=== PATIENT | female | born 1945 | race Caucasian/White ===

== ENCOUNTER 2016-08-30 12:04 | Outpatient (CLI) | payer MEDICARE, BC | END 2016-08-30 12:05 | disposition home or self-care (01) | DX: I10 Essential (primary) hypertension (principal); E78.00 Pure hypercholesterolemia, unspecified; E74.39 Other disorders of intestinal carbohydrate absorption ==

== ENCOUNTER 2017-03-14 09:30 | Outpatient (CLI) | payer MEDICARE, BC ==
[2017-03-14 12:23] LABS: BASOPHILS # (AUTO) 0.1 10^3/uL (0.0-0.1); BASOPHILS % (AUTO) 1.2 %; EOSINOPHILS # (AUTO) 0.4 10^3/uL (0.0-0.7); EOSINOPHILS % (AUTO) 4.5 %; HCT - HEMATOCRIT 37.6 % (37.0-47.0); HGB - HEMOGLOBIN 12.5 g/dL (12.0-16.0); LYMPHOCYTES # (AUTO) 3.1 10^3/uL (1.5-3.5); LYMPHOCYTES % (AUTO) 38.6 %; MEAN CORPUSCULAR HEMOGLOBIN 29.8 pg (27.0-31.0); MEAN CORPUSCULAR HGB CONC 33.2 g/dL (32.0-36.0); MEAN PLATELET VOLUME 10.3 fL (7.9-10.8); MONOCYTES # (AUTO) 0.6 10^3/uL (0.0-1.0); MONOCYTES % (AUTO) 7.2 %; NEUTROPHILS # (AUTO) 3.9 10^3/uL (1.5-6.6); NEUTROPHILS % (AUTO) 48.5 %; RED BLOOD COUNT 4.18 10^6/uL (4.20-5.40); RED CELL DISTRIBUTION WIDTH 13.9 % (12.0-15.0)
[2017-03-14 12:56] LABS: ALBUMIN/GLOBULIN RATIO 1.2 (1.0-2.2); BILIRUBIN,TOTAL 0.5 mg/dL (0.2-1.0); BUN - BLOOD UREA NITROGEN 20 mg/dL (6-20); CALCIUM 9.1 mg/dL (8.5-10.3); CARBON DIOXIDE - CO2 28 mmol/L (21-32); CHLORIDE 108 mmol/L (101-111); CHOL/HDL RATIO 3.6 (<4.4); CHOLESTEROL 154 mg/dL; CREATININE 0.6 mg/dL (0.4-1.0); GFR - MDRD 98 (>89); GLUCOSE 112 mg/dL (70-100); HDL CHOLESTEROL 43 mg/dL; POTASSIUM 4.3 mmol/L (3.5-5.0); SODIUM 141 mmol/L (135-145); TOTAL PROTEIN 7.3 g/dL (6.7-8.2); TRIGLYCERIDES 119 mg/dL; VLDL CHOLESTEROL 24 mg/dL
[2017-03-14 12:58] LABS: HEMOGLOBIN A1C 0.56 g/dL
== END 2017-03-14 09:31 | disposition home or self-care (01) ==
LOC: LAB.WCP 09:30
PROVIDERS: ATTEND Family Medicine
DX: E11.9 Type 2 diabetes mellitus without complications (principal); I10 Essential (primary) hypertension
CPT/HCPCS: 36415; 80053; 80061; 83036; 85025

== ENCOUNTER 2017-10-27 10:30 | Outpatient (CLI) | payer MEDICARE, BC ==
[2017-10-27 12:37] LABS: CALCIUM 9.5 mg/dL (8.5-10.3); CREATININE 0.5 mg/dL (0.4-1.0)
[2017-10-27 12:45] LABS: HB2 TOTAL 12.9 g/dL; HEMOGLOBIN A1C 0.49 g/dL; HEMOGLOBIN A1C % 5.6 % (4.6-6.2)
== END 2017-10-27 10:31 | disposition home or self-care (01) ==
LOC: LAB.WCP 10:30
PROVIDERS: ATTEND Family Medicine
DX: R73.01 Impaired fasting glucose (principal)
CPT/HCPCS: 36415; 80048; 83036

== ENCOUNTER 2018-04-09 10:40 | Outpatient (CLI) | payer MEDICARE, BC ==
[2018-04-09 12:38] LABS: BASOPHILS # (AUTO) 0.2 10^3/uL (0.0-0.1); BASOPHILS % (AUTO) 2.1 %; EOSINOPHILS # (AUTO) 0.2 10^3/uL (0.0-0.7); EOSINOPHILS % (AUTO) 2.8 %; HGB - HEMOGLOBIN 12.5 g/dL (12.0-16.0); LYMPHOCYTES % (AUTO) 23.6 %; MEAN CORPUSCULAR HEMOGLOBIN 29.9 pg (27.0-31.0); MEAN CORPUSCULAR HGB CONC 33.6 g/dL (32.0-36.0); MEAN PLATELET VOLUME 10.2 fL (7.9-10.8); MONOCYTES # (AUTO) 0.5 10^3/uL (0.0-1.0); MONOCYTES % (AUTO) 6.4 %; NEUTROPHILS # (AUTO) 5.4 10^3/uL (1.5-6.6); NEUTROPHILS % (AUTO) 65.1 %; PLT - PLATELET COUNT 251 10^3/uL (130-450); RED BLOOD COUNT 4.18 10^6/uL (4.20-5.40); RED CELL DISTRIBUTION WIDTH 14.1 % (12.0-15.0); WHITE BLOOD COUNT 8.3 x10^3/uL (4.8-10.8)
[2018-04-09 12:47] LABS: HB2 TOTAL 13.2 g/dL; HEMOGLOBIN A1C 0.49 g/dL; HEMOGLOBIN A1C % 5.5 % (4.6-6.2)
[2018-04-09 13:34] LABS: ALBUMIN/GLOBULIN RATIO 1.1 (1.0-2.2); ALKALINE PHOSPHATASE 37 IU/L (42-121); ALT ALANINE AMINOTRANSFERASE 13 IU/L (10-60); AST ASPARTATE AMINOTRANSFERASE 23 IU/L (10-42); BILIRUBIN,TOTAL 0.7 mg/dL (0.2-1.0); BUN - BLOOD UREA NITROGEN 14 mg/dL (6-20); CALCIUM 9.1 mg/dL (8.5-10.3); CARBON DIOXIDE - CO2 31 mmol/L (21-32); CHLORIDE 104 mmol/L (101-111); CHOL/HDL RATIO 3.4 (<4.4); CHOLESTEROL 141 mg/dL; CREATININE 0.4 mg/dL (0.4-1.0); GFR - MDRD 156 (>89); GLUCOSE 115 mg/dL (70-100); HDL CHOLESTEROL 42 mg/dL; LDL CHOLESTEROL,CALCULATED 79 mg/dL; LDL/HDL RATIO 1.9 (<4.4); SODIUM 141 mmol/L (135-145); TOTAL PROTEIN 7.5 g/dL (6.7-8.2); VLDL CHOLESTEROL 20 mg/dL
== END 2018-04-09 10:41 ==
LOC: LAB.WCP 10:40
PROVIDERS: ATTEND Family Medicine
DX: I10 Essential (primary) hypertension (principal); R73.01 Impaired fasting glucose
CPT/HCPCS: 36415; 80053; 80061; 83036; 83721; 84443; 85025

== ENCOUNTER 2019-01-01 08:00 | Outpatient (CLI) | payer MEDICARE, BC ==
[2019-01-01 18:48] LABS: BASOPHILS # (AUTO) 0.1 10^3/uL (0.0-0.1); BASOPHILS % (AUTO) 1.5 %; EOSINOPHILS # (AUTO) 0.3 10^3/uL (0.0-0.7); EOSINOPHILS % (AUTO) 3.9 %; HGB - HEMOGLOBIN 12.3 g/dL (12.0-16.0); LYMPHOCYTES # (AUTO) 2.9 10^3/uL (1.5-3.5); LYMPHOCYTES % (AUTO) 38.8 %; MEAN CORPUSCULAR HEMOGLOBIN 29.7 pg (27.0-31.0); MEAN CORPUSCULAR HGB CONC 32.3 g/dL (32.0-36.0); MEAN CORPUSCULAR VOLUME 91.7 fL (81.0-99.0); MEAN PLATELET VOLUME 9.9 fL (7.9-10.8); MONOCYTES # (AUTO) 0.6 10^3/uL (0.0-1.0); MONOCYTES % (AUTO) 7.7 %; NEUTROPHILS # (AUTO) 3.6 10^3/uL (1.5-6.6); NEUTROPHILS % (AUTO) 48.1 %; PLT - PLATELET COUNT 336 10^3/uL (130-450); RED BLOOD COUNT 4.15 10^6/uL (4.20-5.40); RED CELL DISTRIBUTION WIDTH 14.2 % (12.0-15.0); WHITE BLOOD COUNT 7.5 x10^3/uL (4.8-10.8)
[2019-01-01 19:08] LABS: ALBUMIN 3.9 g/dL (3.2-5.5); ALKALINE PHOSPHATASE 55 IU/L (42-121); ALT ALANINE AMINOTRANSFERASE 10 IU/L (10-60); AST ASPARTATE AMINOTRANSFERASE 22 IU/L (10-42); BILIRUBIN,TOTAL 0.4 mg/dL (0.2-1.0); BUN - BLOOD UREA NITROGEN 19 mg/dL (6-20); CALCIUM 9.4 mg/dL (8.5-10.3); CARBON DIOXIDE - CO2 27 mmol/L (21-32); CHLORIDE 109 mmol/L (101-111); CHOL/HDL RATIO 3.5 (<4.4); CHOLESTEROL 142 mg/dL; CREATININE 0.6 mg/dL (0.4-1.0); GFR - MDRD 97 (>89); GLUCOSE 89 mg/dL (70-100); HDL CHOLESTEROL 41 mg/dL; LDL CHOLESTEROL,CALCULATED 78 mg/dL; LDL/HDL RATIO 1.9 (<4.4); SODIUM 145 mmol/L (135-145); VLDL CHOLESTEROL 23 mg/dL
[2019-01-01 19:16] LABS: HB2 TOTAL 13.2 g/dL; HEMOGLOBIN A1C 0.57 g/dL; HEMOGLOBIN A1C % 6.1 % (4.6-6.2)
== END 2019-01-01 23:59 | disposition home or self-care (01) ==
LOC: LAB.WCP 08:00
PROVIDERS: ATTEND Family Medicine
DX: I10 Essential (primary) hypertension (principal); E74.39 Other disorders of intestinal carbohydrate absorption
CPT/HCPCS: 36415; 80053; 80061; 83036; 83721; 84443; 85025

== ENCOUNTER 2019-07-08 09:00 | Outpatient (CLI) | payer MEDICARE, BC ==
[2019-07-08 18:28] LABS: BASOPHILS # (AUTO) 0.1 10^3/uL (0.0-0.1); EOSINOPHILS # (AUTO) 0.3 10^3/uL (0.0-0.7); EOSINOPHILS % (AUTO) 3.7 %; HGB - HEMOGLOBIN 12.7 g/dL (12.0-16.0); LYMPHOCYTES % (AUTO) 34.6 %; MEAN CORPUSCULAR HEMOGLOBIN 29.3 pg (27.0-31.0); MEAN CORPUSCULAR HGB CONC 30.4 g/dL (32.0-36.0); MEAN CORPUSCULAR VOLUME 96.5 fL (81.0-99.0); MEAN PLATELET VOLUME 12.5 fL (7.9-10.8); MONOCYTES # (AUTO) 0.7 10^3/uL (0.0-1.0); NEUTROPHILS # (AUTO) 4.5 10^3/uL (1.5-6.6); NEUTROPHILS % (AUTO) 52.1 %; PLT - PLATELET COUNT 295 10^3/uL (130-450); RED BLOOD COUNT 4.33 10^6/uL (4.20-5.40); RED CELL DISTRIBUTION WIDTH 13.5 % (12.0-15.0); WHITE BLOOD COUNT 8.6 x10^3/uL (4.8-10.8)
[2019-07-08 19:05] LABS: ALBUMIN 4.2 g/dL (3.2-5.5); ALBUMIN/GLOBULIN RATIO 1.1 (1.0-2.2); BILIRUBIN,TOTAL 0.7 mg/dL (0.2-1.0); CALCIUM 9.5 mg/dL (8.5-10.3); CREATININE 0.5 mg/dL (0.4-1.0)
[2019-07-08 19:23] LABS: HB2 TOTAL 12.8 g/dL; HEMOGLOBIN A1C 0.56 g/dL; HEMOGLOBIN A1C % 6.2 % (4.6-6.2)
== END 2019-07-08 23:59 | disposition home or self-care (01) ==
LOC: LAB.WCP 09:00
PROVIDERS: ATTEND Family Medicine
DX: I10 Essential (primary) hypertension (principal); R73.01 Impaired fasting glucose
CPT/HCPCS: 36415; 80053; 83036; 85025

== ENCOUNTER 2020-05-02 02:13 | Inpatient (IN) | payer MEDICARE, BC ==
--- NOTE | 2020-05-02 02:15 | ED Physician Documentation ---
History of Present Illness - Stated complaint Stated Complaint: LT SIDE WEAKNESS, RT HIP FX, POSS TIA - History obtained from History obtained from: EMS - Additonal information Additional information: the patient is a 74 Y/O F brought in by EMS after she was found down in the shower. Her last known normal was 16:00 05/01/2020. The patient reports that at some time after 16:00 yesterday she had an episode of left sided weakness that has resolved with the exception of some generalized left sided weakness but no facial droop or unilateral weakness. The patient is c/o of some sob and some generalized weakness and shakiness, denies fevers. Review of Systems Ten Systems: 10 systems reviewed and negative Constitutional: reports: Reviewed and negative Eyes: reports: Reviewed and negative Ears: reports: Reviewed and negative Nose: reports: Reviewed and negative Throat: reports: Reviewed and negative Cardiac: reports: Reviewed and negative Respiratory: reports: Reviewed and negative GI: reports: Reviewed and negative : reports: Reviewed and negative Skin: reports: Reviewed and negative Musculoskeletal: reports: Reviewed and negative Neurologic: reports: Other (left sided weakness that resolved.) Psychiatric: reports: Reviewed and negative Endocrine: reports: Reviewed and negative Immunocompromised: reports: Reviewed and negative PD PAST MEDICAL HISTORY - Present Medications Home Medications: Ambulatory Orders Medication Instructions Recorded Confirmed ALPRAZolam [Alprazolam] 0.5 mg PO DAILY PRN 05/02/20 05/02/20 Amlodipine Besylate 10 mg PO DAILY 05/02/20 05/02/20 Fenofibrate Nanocrystallized 145 mg PO DAILY 05/02/20 05/02/20 [Fenofibrate] Losartan Potassium 100 mg PO DAILY 05/02/20 05/02/20 Nadolol [Corgard] 40 mg PO DAILY 05/02/20 05/02/20 - Allergies Allergies/Adverse Reactions: Allergies Allergy/AdvReac Type Severity Reaction Status Date / Time Penicillins Allergy Rash Verified 05/02/20 02:57 PD ED PE NORMAL - Vitals Vital signs reviewed: Yes - General General: Alert and oriented X 3, No acute distress, Well developed/nourished - HEENT HEENT: Atraumatic, PERRL, Moist mucous membranes, Pharynx benign - Neck Neck: Supple, no meningeal sign, No bony TTP - Cardiac Cardiac: RRR, No murmur, Strong equal pulses - Respiratory Respiratory: No respiratory distress, Clear bilaterally - Abdomen Abdomen: Normal bowel sounds, Soft, Non tender, Non distended - Female Female : Deferred - Rectal Rectal: Deferred - Back Back: No CVA TTP, No spinal TTP - Derm Derm: Normal color, Warm and dry, No rash - Extremities Extremities: No deformity, No tenderness to palpate, Normal ROM s pain, No edema, No calf tenderness / cord - Neuro Neuro: Alert and oriented X 3, 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, No motor deficit, No sensory deficit, Normal speech, Other (no facial droop, no unilateral weakness, no pronator drift, normal finger to nose, normal rapid alternating movement, normal heal to dickey.) - Psych Psych: Normal mood, Normal affect Results - Vitals Vitals: Vital Signs - 24 hr 05/02/20 05/02/20 05/02/20 02:15 02:20 03:35 Temperature 36.5 C Heart Rate 60 58 L 58 L Respiratory 18 19 24 Rate Blood Pressure 158/78 H 143/61 H 127/70 O2 Saturation 100 98 97 05/02/20 05/02/20 04:25 04:55 Temperature 36.8 C Heart Rate 53 L 52 L Respiratory 23 25 H Rate Blood Pressure 132/49 H 132/49 H O2 Saturation 53 L 94 Oxygen O2 Source Room air - EKG (time done) 02:43 Rate: Other (no stemi) - Labs Labs: Laboratory Tests 05/02/20 05/02/20 05/02/20 02:40 02:40 02:40 WBC 11.0 H RBC 4.26 Hgb 12.6 Hct 40.2 MCV 94.4 MCH 29.6 MCHC 31.3 L RDW 13.2 Plt Count 296 MPV 11.5 H Neut # (Auto) 6.8 H Lymph # (Auto) 3.0 [place] # (Auto) 0.7 Eos # (Auto) 0.3 Baso # (Auto) 0.1 Absolute Nucleated RBC 0.00 Nucleated RBC % 0.0 PT 12.2 INR 1.1 APTT 26.3 Sodium 140 Potassium 3.9 Chloride 106 Carbon Dioxide 24 Anion Gap 10.0 BUN 33 H Creatinine 0.9 Estimated GFR (MDRD) 61 L Glucose 142 H Calcium 9.2 Magnesium 1.8 Total Bilirubin 0.7 AST 21 ALT 11 Alkaline Phosphatase 69 Total Creatine Kinase 76 Troponin I High Sens B-Natriuretic Peptide Total Protein 7.8 Albumin 4.2 Globulin 3.6 Albumin/Globulin Ratio 1.2 Triglycerides Cholesterol LDL Cholesterol, Calc VLDL Cholesterol HDL Cholesterol LDL/HDL Ratio Cholesterol/HDL Ratio Lipase 33 Urine Color Urine Clarity Urine pH Ur Specific [place] Urine Protein Urine Glucose (UA) Urine Ketones Urine Occult Blood Urine Nitrite Urine Bilirubin Urine Urobilinogen Ur Leukocyte Esterase Urine RBC Urine WBC Ur Squamous Epith Cells Urine Bacteria Ur Microscopic Review Urine Culture Comments Urine Opiates Screen Ur Oxycodone Screen Urine Methadone Screen Ur Propoxyphene Screen Ur Barbiturates Screen Ur Tricyclics Screen Ur Phencyclidine Scrn Ur Amphetamine Screen U Methamphetamines Scrn U Benzodiazepines Scrn Urine Cocaine Screen U Cannabinoids Screen Ethyl Alcohol < 5.0 05/02/20 05/02/20 05/02/20 02:40 02:40 03:55 WBC RBC Hgb Hct MCV MCH MCHC RDW Plt Count MPV Neut # (Auto) Lymph # (Auto) [place] # (Auto) Eos # (Auto) Baso # (Auto) Absolute Nucleated RBC Nucleated RBC % PT INR APTT Sodium Potassium Chloride Carbon Dioxide Anion Gap BUN Creatinine Estimated GFR (MDRD) Glucose Calcium Magnesium Total Bilirubin AST ALT Alkaline Phosphatase Total Creatine Kinase Troponin I High Sens 19.0 H* B-Natriuretic Peptide 149 H Total Protein Albumin Globulin Albumin/Globulin Ratio Triglycerides Cholesterol LDL Cholesterol, Calc VLDL Cholesterol HDL Cholesterol LDL/HDL Ratio Cholesterol/HDL Ratio Lipase Urine Color YELLOW Urine Clarity CLEAR Urine pH 7.0 Ur Specific [place] 1.015 Urine Protein TRACE Urine Glucose (UA) NEGATIVE Urine Ketones NEGATIVE Urine Occult Blood TRACE-INTA Urine Nitrite NEGATIVE Urine Bilirubin NEGATIVE Urine Urobilinogen 0.2 (NORMAL) Ur Leukocyte Esterase SMALL H Urine RBC 0-5 Urine WBC 4-5 Ur Squamous Epith Cells FEW Squamous Urine Bacteria Rare Ur Microscopic Review INDICATED Urine Culture Comments INDICATED Urine Opiates Screen NEGATIVE Ur Oxycodone Screen NEGATIVE Urine Methadone Screen NEGATIVE Ur Propoxyphene Screen NEGATIVE Ur Barbiturates Screen NEGATIVE Ur Tricyclics Screen NEGATIVE Ur Phencyclidine Scrn NEGATIVE Ur Amphetamine Screen NEGATIVE U Methamphetamines Scrn NEGATIVE U Benzodiazepines Scrn POSITIVE H Urine Cocaine Screen NEGATIVE U Cannabinoids Screen NEGATIVE Ethyl Alcohol 05/02/20 05/02/20 05/02/20 05:13 05:13 05:13 WBC 11.3 H RBC 4.26 Hgb 12.6 Hct 40.5 MCV 95.1 MCH 29.6 MCHC 31.1 L RDW 13.1 Plt Count 283 MPV 11.4 H Neut # (Auto) 7.4 H Lymph # (Auto) 2.7 [place] # (Auto) 0.7 Eos # (Auto) 0.2 Baso # (Auto) 0.1 Absolute Nucleated RBC 0.00 Nucleated RBC % 0.0 PT INR APTT Sodium 141 Potassium 3.9 Chloride 108 Carbon Dioxide 26 Anion Gap 7.0 BUN 30 H Creatinine 0.7 Estimated GFR (MDRD) 81 L Glucose 149 H Calcium 9.2 Magnesium Total Bilirubin AST ALT Alkaline Phosphatase Total Creatine Kinase Troponin I High Sens B-Natriuretic Peptide Total Protein Albumin Globulin Albumin/Globulin Ratio Triglycerides 94 Cholesterol 151 LDL Cholesterol, Calc 88 VLDL Cholesterol 19 HDL Cholesterol 44 L LDL/HDL Ratio 2.0 Cholesterol/HDL Ratio 3.4 Lipase Urine Color Urine Clarity Urine pH Ur Specific [place] Urine Protein Urine Glucose (UA) Urine Ketones Urine Occult Blood Urine Nitrite Urine Bilirubin Urine Urobilinogen Ur Leukocyte Esterase Urine RBC Urine WBC Ur Squamous Epith Cells Urine Bacteria Ur Microscopic Review Urine Culture Comments Urine Opiates Screen Ur Oxycodone Screen Urine Methadone Screen Ur Propoxyphene Screen Ur Barbiturates Screen Ur Tricyclics Screen Ur Phencyclidine Scrn Ur Amphetamine Screen U Methamphetamines Scrn U Benzodiazepines Scrn Urine Cocaine Screen U Cannabinoids Screen Ethyl Alcohol PD MEDICAL DECISION MAKING - ED course Complexity details: reviewed results, re-evaluated patient, considered differential, d/w patient, d/w family, d/w oracle distribution consultant (dr. quiros. will admit patient. ) ED course: 74-year-old female brought in by ambulance after she was found down in the shower and the patient denies any complaints currently EMS reports her blood sugars was was normal. Last known normal was 1600 yesterday. Patient apparently mentioned EMS that she had left-sided weakness that is completely resolved. Denies taking blood thinners. Chest x-ray shows borderline cardiomegaly with central vascular congestion and interstitial prominence that is suggestive of mild CHF or fluid overload 1 view anterior posterior of the pelvis shows no pelvic fracture or misalignment preliminary radiology interpretation of head and neck CT angiogram shows mild atherosclerotic changes of carotid bulbs and cavernous ICAs no vessel occlusion or significant stenosis. I spoke with the hospitalist, dr. quiros who graciously agreed to accept this patient. patient and family updated and agreeable to plan. - Consults Consults: Discussed case with (dr. quiros, hospitalist. will admit patient. ) Departure - Departure Disposition: 66 [facility] DC/Xfer Clinical Impression: TIA (transient ischemic attack) Condition: Stable Discharge Date/Time: 05/02/20 06:43
[2020-05-02] MEDS ORDERED: IOVERSOL 320 100 ML VIAL IVP ONE ×2 (02:43→03:37)
[2020-05-02 02:49] LABS: BASOPHILS # (AUTO) 0.1 10^3/uL (0.0-0.1); BASOPHILS % (AUTO) 0.9 %; EOSINOPHILS # (AUTO) 0.3 10^3/uL (0.0-0.7); EOSINOPHILS % (AUTO) 2.9 %; HGB - HEMOGLOBIN 12.6 g/dL (12.0-16.0); LYMPHOCYTES % (AUTO) 27.3 %; MEAN CORPUSCULAR HEMOGLOBIN 29.6 pg (27.0-31.0); MEAN CORPUSCULAR HGB CONC 31.3 g/dL (32.0-36.0); MEAN CORPUSCULAR VOLUME 94.4 fL (81.0-99.0); MEAN PLATELET VOLUME 11.5 fL (7.9-10.8); MONOCYTES # (AUTO) 0.7 10^3/uL (0.0-1.0); NEUTROPHILS # (AUTO) 6.8 10^3/uL (1.5-6.6); NEUTROPHILS % (AUTO) 62.1 %; PLT - PLATELET COUNT 296 10^3/uL (130-450); RED BLOOD COUNT 4.26 10^6/uL (4.20-5.40); RED CELL DISTRIBUTION WIDTH 13.2 % (12.0-15.0)
[2020-05-02 02:56] LABS: INR 1.1 (0.8-1.2); PT - PROTHROMBIN TIME 12.2 secs (9.9-12.6)
[2020-05-02 03:03] LABS: PARTIAL THROMBOPLASTIN TIME 26.3 secs (24.9-33.3)
[2020-05-02 03:04] LABS: ALBUMIN 4.2 g/dL (3.2-5.5); ALBUMIN/GLOBULIN RATIO 1.2 (1.0-2.2); ALKALINE PHOSPHATASE 69 IU/L (42-121); ALT ALANINE AMINOTRANSFERASE 11 IU/L (10-60); AST ASPARTATE AMINOTRANSFERASE 21 IU/L (10-42); BILIRUBIN,TOTAL 0.7 mg/dL (0.2-1.0); BUN - BLOOD UREA NITROGEN 33 mg/dL (6-20); CALCIUM 9.2 mg/dL (8.5-10.3); CARBON DIOXIDE - CO2 24 mmol/L (21-32); CHLORIDE 106 mmol/L (101-111); CK- CREATINE KINASE 76 IU/L (22-269); CREATININE 0.9 mg/dL (0.4-1.0); GLUCOSE 142 mg/dL (70-100); LIPASE 33 U/L (22-51); MAGNESIUM 1.8 mg/dL (1.7-2.8); SODIUM 140 mmol/L (135-145); TOTAL PROTEIN 7.8 g/dL (6.7-8.2)
[2020-05-02 04:03] LABS: MUDS CUTOFF CONCENTRATIONS CUTOFF CONC BELOW:
[2020-05-02 04:08] LABS: BILIRUBIN,URINE NEGATIVE (NEGATIVE); GLUCOSE, URINE (UA) NEGATIVE (NEGATIVE); KETONES,URINE (UA) NEGATIVE (NEGATIVE); LEUKOCYTE ESTERASE, URINE SMALL (NEGATIVE); NITRITE,URINE NEGATIVE (NEGATIVE); OCCULT BLOOD,URINE TRACE-INTA (NEGATIVE); PROTEIN,URINE TRACE mg/dL (NEGATIVE); UROBILINOGEN,URINE 0.2 (NORMAL) E.U./dL (NORMAL)
[2020-05-02 04:17] LABS: CLARITY,URINE CLEAR (CLEAR)
[2020-05-02 04:18] LABS: AMPHETAMINE SCREEN,URINE NEGATIVE (NEGATIVE); BACTERIA,URINE Rare /HPF (None Seen); BENZODIAZEPINES SCREEN, URINE POSITIVE (NEGATIVE); COCAINE SCREEN URINE NEGATIVE (NEGATIVE); METHADONE SCREEN, URINE NEGATIVE (NEGATIVE); METHAMPHETAMINES SCREEN, URINE NEGATIVE (NEGATIVE); OPIATE SCREEN, URINE NEGATIVE (NEGATIVE); OXYCODONE SCREEN, URINE NEGATIVE (NEGATIVE); PROPOXYPHENE SCREEN, URINE NEGATIVE (NEGATIVE); RBC,URINE 0-5 /HPF (0-5); SQUAMOUS EPITHELIAL CELL,UR FEW Squamous (<= Few); TRICYCLIC ANTIDEPRESSANT,URINE NEGATIVE (NEGATIVE)
[2020-05-02] MEDS ORDERED: LORazepam 2 MG/ML VIAL IVP STA (04:18)
[2020-05-02] MEDS ORDERED: SODIUM CHLORIDE FLUSH 0.9% 10 ML SYRINGE IVP PRN (04:42)
[2020-05-02] MEDS ORDERED: ACETAMINOPHEN 325 MG TABLET PO PRN (04:42)
[2020-05-02] MEDS ORDERED: ONDANSETRON 4 MG/2 ML VIAL IVP PRN (04:42)
--- NOTE | 2020-05-02 04:51 | HISTORY & PHYSICAL EXAMINATION ---
Chief Complaint - Chief Complaint Chief Complaint: Left-sided weakness, slurred speech History of Present Illness - Admitted From Admitted From:: [facility] ED - History Obtained From Records Reviewed: Yes History obtained from: Patient's son Exam Limitations: Language barrier. Patient is mainly Luxembourger speaking. - History of Present Illness HPI Comment/Other: Patient is a 74-year-old femalWho presented to the ED with left-sided weakness and slurred speech.Her symptoms started around 1:30 AM when she was trying to take a bath. She also became dizzy. She attempted to walk around this time and fell several times in the bathroom. She called her son who found her on the living room floor.He then called 911 and EMS brought her to the ED. By the time of arrival to the ED the patient's slurred speech had resolved. However her weakness persist.Her son last talked to her around 4 PM during which time she appeared normal. At baseline the patient is independent of activities of daily living. She walks without the help of a walking aid. 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 Prior to this incident she had not had any complaints of chest pain, dyspnea, abdominal pain, nausea, vomiting, fever or chills. Her medical history significant for hypertension, COPD, hyperlipidemia, anxiety and diabetes mellitus which is diet controlled only. As a result of her presentation and persistence of her symptoms she is being admitted for further work-up. History - Past Medical History Cardiovascular: reports: Hypertension, High cholesterol Respiratory: reports: COPD Endocrine/Autoimmune: reports: Type 2 diabetes Psych: reports: Anxiety MRSA Hx?: No - Past Surgical History HEENT: reports: Tonsil/Adenoidectomy - Family & Social History Family History Comment/Other: Her sister is diabetic. Her son has high blood pressure. Social History Notes: The patient lives alone but has son checks on her regularly. She quit smoking about 5 years ago. She has a history of smoking for over 30+ years. She rarely consumes alcohol and does not use any recreational substances. - POLST Patient has POLST: No POLST Status: Full Code Meds/Allgy - Home Medications Home Medications: Ambulatory Orders Medication Instructions Recorded Confirmed ALPRAZolam [Alprazolam] 0.5 mg PO DAILY PRN 05/02/20 05/02/20 Amlodipine Besylate 10 mg PO DAILY 05/02/20 05/02/20 Fenofibrate Nanocrystallized 145 mg PO DAILY 05/02/20 05/02/20 [Fenofibrate] Losartan Potassium 100 mg PO DAILY 05/02/20 05/02/20 Nadolol [Corgard] 40 mg PO DAILY 05/02/20 05/02/20 - Allergies Allergies/Adverse Reactions: Allergies Allergy/AdvReac Type Severity Reaction Status Date / Time Penicillins Allergy Rash Verified 05/02/20 02:57 Review of Systems - Constitutional Constitutional: reports: Chills, Weakness. denies: Fatigue, Fever - Eyes Eyes: denies: Pain, Vision loss, Dipolpia - Ears, Nose & Throat Ears, Nose & Throat: denies: Ear pain - Cardiovascular Cariovascular: reports: Lightheadedness. denies: Irregular heart rate, Palpitations, Chest pain, Edema - Respiratory Respiratory: denies: Cough, Sputum production, Wheezing, Snoring, SOB at rest, SOB with exertion - Gastrointestinal Gastrointestinal: denies: Abdominal pain, Abdominal distention, Nausea, Vomiting - Genitourinary Genitourinary: denies: Dysuria, Frequency, Urgency, Hematuria - Musculoskeletal Musculoskeletal: denies: Muscle pain, Back pain, Muscle aches - Integumentary Integumentary: denies: Rash, Pruritis, Lesions - Neurological Neurological: reports: Focal weakness (Left-sided weakness), Dizziness, Slurred speech. denies: Headache - Psychiatric Psychiatric: reports: Anxiety. denies: Depression - Endocrine Endocrine: denies: Polyuria, Polydypsia - Hematologic/Lymphatic Hematologic/Lymphatic: denies: Anemia, Bruising Prior Level of Functionality: Patient is normally independent of activities of daily living. Exam - Vital Signs Vital Signs: Vital Signs x48h Temp Pulse Resp BP Pulse Ox 05/02/20 04:25 36.8 C 53 L 23 132/49 H 53 L 05/02/20 03:35 58 L 24 127/70 97 05/02/20 02:20 58 L 19 143/61 H 98 05/02/20 02:15 36.5 C 60 18 158/78 H 100 - Physical Exam General Appearance: positive: No acute distress, Alert Eyes Bilateral: positive: PERRL, EOMI ENT: positive: No signs of dehydration Neck: positive: No JVD, Trachea midline Respiratory: positive: Chest non-tender, No respiratory distress, Breath sounds nml. negative: Wheezes, Rales, Rhonchi Cardiovascular: positive: Regular rate & rhythm, No murmur Abdomen: positive: Non-tender, No organomegaly, Nml bowel sounds, No distention. negative: Guarding, Rebound Back: positive: Nml inspection Skin: positive: Color nml, No rash, Warm, Dry Extremities: positive: Non-tender, Nml appearance, No pedal edema Neurologic/Psychiatric: positive: Oriented x3, Mood/affect nml, Weakness (Left- sided weakness). negative: Motor nml Conclusion/Plan - Problem List (1) CVA (cerebral vascular accident) Conclusion/Plan: CT of the brain without contrast was unremarkable. MRI of the brain without contrast ordered. 2D echo ordered. Lipid panel, hemoglobin A1c pending. Neurochecks every shift. Swallow evaluation ordered. Physical therapy and Occupational Therapy ordered. Patient given a full dose of aspirin. Qualifiers: Laterality of affected vessel: left (2) Hypertension Conclusion/Plan: Currently normotensive. We resume losartan, amlodipine and nadolol when appropriate to do so and once verified. (3) Hyperlipidemia Conclusion/Plan: Patient is on fenofibrate. Lipid panel pending. Patient with likely be discharged on a statin. (4) Hx of diabetes mellitus Conclusion/Plan: Patient's diabetes was mainly diet controlled. Patient was never on medications. Hemoglobin A1c pending. - Lab Results Fish Bones: 05/02/20 02:40 05/02/20 02:40 Core Measures - Anticipated LOS I expect patient to be DC'd or transferred within 96 hours.: Yes - DVT/VTE - Prophylaxis VTE/DVT Device ordered at admit?: Yes
[2020-05-02] MEDS ORDERED: ASPIRIN 325 MG TABLET PO STA (05:18)
[2020-05-02 05:23] LABS: BASOPHILS # (AUTO) 0.1 10^3/uL (0.0-0.1); BASOPHILS % (AUTO) 1.1 %; EOSINOPHILS # (AUTO) 0.2 10^3/uL (0.0-0.7); EOSINOPHILS % (AUTO) 2.1 %; HGB - HEMOGLOBIN 12.6 g/dL (12.0-16.0); LYMPHOCYTES # (AUTO) 2.7 10^3/uL (1.5-3.5); LYMPHOCYTES % (AUTO) 23.9 %; MEAN CORPUSCULAR HEMOGLOBIN 29.6 pg (27.0-31.0); MEAN CORPUSCULAR HGB CONC 31.1 g/dL (32.0-36.0); MEAN CORPUSCULAR VOLUME 95.1 fL (81.0-99.0); MEAN PLATELET VOLUME 11.4 fL (7.9-10.8); MONOCYTES # (AUTO) 0.7 10^3/uL (0.0-1.0); MONOCYTES % (AUTO) 6.4 %; NEUTROPHILS # (AUTO) 7.4 10^3/uL (1.5-6.6); NEUTROPHILS % (AUTO) 65.8 %; PLT - PLATELET COUNT 283 10^3/uL (130-450); RED BLOOD COUNT 4.26 10^6/uL (4.20-5.40); RED CELL DISTRIBUTION WIDTH 13.1 % (12.0-15.0); WHITE BLOOD COUNT 11.3 x10^3/uL (4.8-10.8)
[2020-05-02 05:31] LABS: CALCIUM 9.2 mg/dL (8.5-10.3); CREATININE 0.7 mg/dL (0.4-1.0)
[2020-05-02 05:47] LABS: CHOL/HDL RATIO 3.4 (<4.4); CHOLESTEROL 151 mg/dL; HDL CHOLESTEROL 44 mg/dL; LDL CHOLESTEROL,CALCULATED 88 mg/dL; VLDL CHOLESTEROL 19 mg/dL
[2020-05-02] MEDS: SODIUM CHLORIDE 0.9% 1,000 ML IV SCH ×3 (06:03→23:38)
--- NOTE | 2020-05-02 07:11 | CT Report ---
PROCEDURE: ANGIO HEAD W/WO INDICATIONS: L sided facial droop CONTRAST: IV CONTRAST: Optiray 320 ml: 80 PO CONTRAST: *NO PO CONTRAST TECHNIQUE: Precontrast 4.5 mm thick angled axial sections acquired from the foramen magnum to the vertex. Afte r the administration of intravenous contrast, 1 mm thick sections acquired through the [place] of Will is. Postcontrast 4.5 mm thick sections then re-acquired from the foramen magnum to the vertex. 3-di mensional fpkimwt-oelgnecoc-nonljhiqst (MIP) and/or volume rendering reformats were acquired of the c entral intracranial vasculature. For radiation dose reduction, the following was used: automated ex posure control, adjustment of mA and/or kV according to patient size. COMPARISON: None FINDINGS: Image quality: Excellent. Anterior circulation: Intracranial internal carotid arteries are normal in flow. Atherosclerotic chrissy cification noted in the cavernous segments of the internal carotid arteries bilaterally which causes mild narrowing of the vessels. The flow within the paired anterior cerebral arteries is normal and sy mmetric. The flow within the middle cerebral arteries is normal and symmetric. The anterior communi cating artery is seen. No aneurysms are seen. Posterior circulation: Visualized portions of the vertebral arteries demonstrate normal caliber, and join to form a normal appearing basilar artery. Flow within the posterior cerebral arteries is norm al and symmetric. No aneurysms are seen. Dural sinuses demonstrate normal postcontrast enhancement. CSF spaces: Ventricles are normal in size and shape. Basal cisterns are patent. No extra-axial flu id collections. Brain: No midline shift. Chronic left frontal and right occipital infarcts. No intracranial bleeds o r masses. Whitten-white matter interface appears intact. Skull and face: Calvarium and facial bones appear intact, without suspicious lesions. Sinuses: Visualized sinuses and mastoids are clear. IMPRESSION: 1. No acute intracranial disease process. 2. No large vessel occlusion, hemodynamically significant vascular enosis, vascular dissection or ane urysm. Reviewed by: Marcela Spicer MD, PhD on 05/02/2020 7:10 AM PDT Approved by: Marcela Spicer MD, PhD on 05/02/2020 7:10 AM PDT Station ID: [id number]
--- NOTE | 2020-05-02 07:36 | CT Report ---
PROCEDURE: ANGIO NECK W INDICATIONS: L sided facial droop, L neck pain CONTRAST: IV CONTRAST: Optiray 320 ml: 80 PO CONTRAST: *NO PO CONTRAST TECHNIQUE: After the administration of intravenous contrast, 1.5 mm axial sections acquired from the aortic arch to the [place] of [place]. Coronal 3-D maximum intensity projection (MIP) and/or volume rendering ref ormats were then performed. For radiation dose reduction, the following was used: automated exposur e control, adjustment of mA and/or kV according to patient size. COMPARISON: None. FINDINGS: Image quality: Excellent. Carotid system: The great vessels demonstrate a conventional anatomy as they arise from the aortic a rch. The origins of the common carotid arteries appear patent. The common carotid arteries demonstr ate normal calibers and courses. Atherosclerotic plaque noted in the origins of the internal carotid arteries bilaterally which causes less than 50% stenosis of the vessels. Posterior circulation: The origins of the vertebral arteries appear patent. Patient is left vertebra l artery dominant. The more superior portions of the vertebral arteries demonstrate normal course and caliber. They join to form a normal appearing basilar artery. Soft tissues: Visualized neck soft tissues demonstrate no suspicious abnormalities. The thyroid gla nd is normal in size. Bones: No suspicious bony lesions. Spine degenerative disc disease and facet arthropathy are noted. Visualized cervical spine appears normally aligned. IMPRESSION: No large vessel occlusion, hemodynamically significant vascular stenosis, vascular dissection or aneu rysm. The estimate of stenosis included in the report of the imaging study was calculated using the NASCET method Reviewed by: Marcela Spicer MD, PhD on 05/02/2020 7:35 AM PDT Approved by: Marcela Spicer MD, PhD on 05/02/2020 7:35 AM PDT Station ID: [id number]
--- NOTE | 2020-05-02 07:59 | XRAY Report ---
PROCEDURE: Chest 1 View X-Ray INDICATIONS: weakness TECHNIQUE: One view of the chest was acquired. COMPARISON: 04/09/2018 FINDINGS: Surgical changes and devices: None. Lungs and pleura: No pleural effusions or pneumothorax. Mild cephalization of the pulmonary vasculat ure and interstitial prominence. Mediastinum: Mediastinal contours appear normal. Heart is borderline enlarged Bones and chest wall: No suspicious bony lesions. Overlying soft tissues appear unremarkable. IMPRESSION: Borderline enlargement of the heart with mild cephalization the pulmonary vasculature and interstitia l prominence concerning for CHF/fluid overload. Reviewed by: Marcela Spicer MD, PhD on 05/02/2020 7:58 AM PDT Approved by: Marcela Spicer MD, PhD on 05/02/2020 7:58 AM PDT Station ID: [id number]
--- NOTE | 2020-05-02 08:00 | XRAY Report ---
PROCEDURE: Pelvis 1 View INDICATIONS: fall TECHNIQUE: 1 view(s) of the pelvis acquired. COMPARISON: None. FINDINGS: Bones: No fractures or dislocations. No suspicious bony lesions. Mild bilateral hip osteoarthritis. Soft tissues: Visualized bowel gas pattern is normal. No suspicious soft tissue calcifications. IMPRESSION: No fracture. No osseous lesion. If there is continued clinical concern for pathology, then repeat alan in film radiographs (7-10 days) or advanced imaging (CT, MR, bone scan) should be considered for furt her evaluation. Reviewed by: Marcela pSicer MD, PhD on 05/02/2020 7:58 AM PDT Approved by: Marcela Spicer MD, PhD on 05/02/2020 7:58 AM PDT Station ID: [id number]
[2020-05-02 10:47] LABS: HEMOGLOBIN A1c% 5.9 % (4.27-6.07)
[2020-05-02] MEDS: PANTOPRAZOLE 40 MG VIAL IVP SCH (10:57)
[2020-05-02] MEDS: SODIUM CHLORIDE FLUSH 0.9% 10 ML SYRINGE IVP SCH ×3 (10:57→23:31)
--- NOTE | 2020-05-02 13:01 | MRI Report ---
PROCEDURE: Brain W/O INDICATIONS: CVA vs TIA work up TECHNIQUE: Noncontrast axial T1 spin echo, axial T2 fast spin echo, sagittal and axial FLAIR, coronal T2 fast sp in echo, axial gradient echo, axial diffusion and ADC through the brain. COMPARISON: None. FINDINGS: Image quality: Excellent. CSF Spaces: Basal cisterns are patent. No extra-axial fluid collections. Ventricles are normal in size and shape. Brain: There is restricted diffusion in the high right frontal lobe involving the superior frontal gy vaishnavi in the OMAR territory. Findings of encephalomalacia and gliosis related to remote ischemia in the left frontal lobe and right posterior temporal lobe. Left cerebral volume loss with passive expansion of the ventricles and extra-axial spaces. Aoyf-kp-prorbcvb chronic microvascular ischemic changes. H emosiderin deposition in the right posterior temporal lobe infarct likely reflecting an element of pr ior hemorrhagic transformation. Skull and face: Calvarium has normal marrow signal. Orbits appear normal. Sinuses: Sinuses and mastoids are clear. IMPRESSION: Acute ischemia in the high right frontal lobe OMAR territory. 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 Mild to moderate chronic microvascular ischemic changes an mild global cerebral volume loss. Reviewed by: Desmond Jacobs MD on 05/02/2020 12:59 PM PDT Approved by: Desmond Jacobs MD on 05/02/2020 12:59 PM PDT Station ID: [id number]
--- NOTE | 2020-05-02 14:09 | PHARMACY PROGRESS NOTE ---
- Best Possible Medication History Admit Date and Time: 05/02/20 0517 Processed by: Pharmacy Medication History completed: Yes Patient Interview: Completed Secondary Source(s): Physician records, Pharmacy records, Insurance records (PATIENT INTERVIEWED BY LEAD BURNER APPRENTICE. PATIENT ABLE TO CONFIRM HOME MEDICATIONS. PATIENT STATES SHE TAKES LASIX 20MG AND KCL 10MEQ SOMETIMES, HOWEVER THESES MEDICATIONS ARE NOT REFLECTED IN THE INSURANCE OR PROVIDER RECORDS, POSSIBLY OLD RXs AND PATIENT HAS LEFT OVER.) As the person ultimately responsible for medication therapy, providers are able to order a medication from an existing home medication list in [facility] via the "Reconcile Routine" prior to Confirmation of that medication by production support analyst. Such practice is discouraged except when the physician, in their clinical judgment, deems that a medical need exists for a medication without regard to previous use.
[2020-05-02] MEDS: ALPRAZolam 0.25 MG TABLET PO SCH (21:50)
[2020-05-02] MEDS: ATORVASTATIN 40 MG TABLET PO SCH (21:50)
[2020-05-03 01:29] LABS: BILIRUBIN,URINE NEGATIVE (NEGATIVE); GLUCOSE, URINE (UA) NEGATIVE (NEGATIVE); KETONES,URINE (UA) NEGATIVE (NEGATIVE); LEUKOCYTE ESTERASE, URINE NEGATIVE (NEGATIVE); NITRITE,URINE NEGATIVE (NEGATIVE); OCCULT BLOOD,URINE NEGATIVE (NEGATIVE); PROTEIN,URINE NEGATIVE (NEGATIVE); UROBILINOGEN,URINE 0.2 (NORMAL) E.U./dL (NORMAL)
[2020-05-03 01:33] LABS: CLARITY,URINE CLEAR (CLEAR)
[2020-05-03 05:15] LABS: BASOPHILS # (AUTO) 0.1 10^3/uL (0.0-0.1); BASOPHILS % (AUTO) 0.6 %; EOSINOPHILS # (AUTO) 0.2 10^3/uL (0.0-0.7); EOSINOPHILS % (AUTO) 2.7 %; HGB - HEMOGLOBIN 11.7 g/dL (12.0-16.0); LYMPHOCYTES # (AUTO) 2.8 10^3/uL (1.5-3.5); LYMPHOCYTES % (AUTO) 33.9 %; MEAN CORPUSCULAR HEMOGLOBIN 28.9 pg (27.0-31.0); MEAN CORPUSCULAR HGB CONC 30.8 g/dL (32.0-36.0); MEAN CORPUSCULAR VOLUME 93.8 fL (81.0-99.0); MEAN PLATELET VOLUME 11.8 fL (7.9-10.8); MONOCYTES # (AUTO) 0.5 10^3/uL (0.0-1.0); MONOCYTES % (AUTO) 6.1 %; NEUTROPHILS # (AUTO) 4.7 10^3/uL (1.5-6.6); NEUTROPHILS % (AUTO) 56.2 %; PLT - PLATELET COUNT 272 10^3/uL (130-450); RED BLOOD COUNT 4.05 10^6/uL (4.20-5.40); RED CELL DISTRIBUTION WIDTH 13.3 % (12.0-15.0); WHITE BLOOD COUNT 8.4 x10^3/uL (4.8-10.8)
[2020-05-03 05:24] LABS: CALCIUM 8.6 mg/dL (8.5-10.3); CREATININE 0.5 mg/dL (0.4-1.0)
[2020-05-03] MEDS: PANTOPRAZOLE 40 MG VIAL IVP SCH (05:35)
[2020-05-03] MEDS: FENOFIBRATE 48 MG TABLET PO SCH (09:08)
[2020-05-03] MEDS: LOSARTAN 50 MG TABLET PO SCH (09:08)
[2020-05-03] MEDS: amLODIPine 5 MG TABLET PO SCH (09:08)
[2020-05-03] MEDS: POTASSIUM CHLORIDE 10 MEQ CAPSULE PO SCH (09:08)
[2020-05-03] MEDS: ASPIRIN EC 81 MG TABLET PO SCH (09:08)
[2020-05-03] MEDS: SODIUM CHLORIDE FLUSH 0.9% 10 ML SYRINGE IVP SCH ×2 (09:09→16:40)
[2020-05-03] MEDS: nadoloL 20 MG TABLET PO SCH (09:09)
[2020-05-03] MEDS: FUROSEMIDE 20 MG TABLET PO SCH (09:11)
[2020-05-03] MEDS: ALBUTEROL NEB 2.5 MG/3 ML INH PRN ×2 (09:18→20:00)
[2020-05-03] MEDS ORDERED: ONDANSETRON ODT 4 MG TABLET TL PRN (11:39)
--- NOTE | 2020-05-03 11:46 | PROVIDER PROGRESS NOTE ---
Subjective - Prog Note Date Prog Note Date: 05/03/20 - Subjective Subjective: She reports feeling improved today. She has increased strength in her left upper and lower extremities. She reported some dysuria yesterday but today she reports her symptoms have improved. She still has poor balance when ambulating but she is able to work with physical therapy. Current Medications - Current Medications Current Medications: Active Medications Acetaminophen (Tylenol) 650 mg PO Q4HR PRN PRN Reason: Pain 1 to 4 Albuterol () 2.5 mg INH RTQ4H PRN PRN Reason: Wheezing Last Admin: 05/03/20 09:18 Dose: 2.5 mg Documented by: Alprazolam (Xanax) 0.5 mg PO QPM [facility] Last Admin: 05/02/20 21:50 Dose: 0.5 mg Documented by: Amlodipine Besylate (Norvasc) 10 mg PO DAILY [facility] Last Admin: 05/03/20 09:08 Dose: 10 mg Documented by: Aspirin (Ecotrin) 81 mg PO DAILY [facility] Last Admin: 05/03/20 09:08 Dose: 81 mg Documented by: Atorvastatin Calcium (Lipitor) 40 mg PO QPM [facility] Last Admin: 05/02/20 21:50 Dose: Not Given Documented by: Famotidine (Pepcid) 20 mg PO DAILY [facility] Fenofibrate (Tricor) 144 mg PO DAILY [facility] Last Admin: 05/03/20 09:08 Dose: 144 mg Documented by: Furosemide (Lasix) 20 mg PO DAILY [facility] Last Admin: 05/03/20 09:11 Dose: 20 mg Documented by: Losartan Potassium (Cozaar) 100 mg PO DAILY [facility] Last Admin: 05/03/20 09:08 Dose: 100 mg Documented by: Nadolol (Corgard) 40 mg PO DAILY [facility] Last Admin: 05/03/20 09:09 Dose: 40 mg Documented by: Ondansetron HCl (Zofran Odt) 4 mg TL Q6HR PRN PRN Reason: Nausea / Vomiting Potassium Chloride (Micro-K) 10 meq PO DAILYWM [facility] Last Admin: 05/03/20 09:08 Dose: 10 meq Documented by: Sodium Chloride (Normal Saline Flush 0.9%) 10 ml IVP PRN PRN PRN Reason: NEEDED PER PROVIDER ORDERS Sodium Chloride (Normal Saline Flush 0.9%) 10 ml IVP 0100,0900,1700 [facility] Last Admin: 05/03/20 09:09 Dose: 10 ml Documented by: ALPRAZolam [Alprazolam] 0.5 mg PO QPM PRN 05/02/20 Albuterol Sulfate [Albuterol Sulfate Hfa] 1 inh PO Q4HR PRN 05/02/20 Amlodipine Besylate 10 mg PO DAILY 05/02/20 Fenofibrate Nanocrystallized [Fenofibrate] 145 mg PO DAILY 05/02/20 Furosemide [Lasix] 20 mg PO DAILY 05/02/20 Losartan Potassium 100 mg PO DAILY 05/02/20 Nadolol [Corgard] 40 mg PO DAILY 05/02/20 Potassium Chloride 10 meq PO DAILY 05/02/20 Objective - Vital Signs/Intake & Output Reviewed Vital Signs: Yes Vital Signs: Vital Signs x48h Temp Pulse Pulse Resp BP Pulse Ox 05/03/20 09:19 66 18 05/03/20 08:00 36.4 C L 66 22 146/53 H 94 05/03/20 05:00 36.3 C L 68 20 158/61 H 94 Intake & Output: Intake & Output 04/30/20 05/01/20 05/02/20 05/03/20 23:59 23:59 23:59 23:59 Intake Total 2071.667 1120 Output Total 200 1400 Balance 1871.667 -280 - Objective General Appearance: positive: No acute distress, Alert Eyes Bilateral: positive: Normal inspection, Conjunctivae nml ENT: positive: ENT inspection nml Neck: positive: Nml inspection Respiratory: positive: No respiratory distress. negative: Wheezes, Rales Cardiovascular: positive: Regular rate & rhythm, No murmur. negative: Tachycardia, Bradycardia, Systolic murmur Abdomen: positive: Non-tender, No distention. negative: Tenderness, Guarding, Rebound Skin: positive: No rash, Warm, Dry Extremities: positive: Full ROM, No pedal edema Neurologic/Psychiatric: positive: Oriented x3, Other (She has had a 5 motor strength in her right upper and lower extremity. Her motor strength is also grossly intact in her left extremities which is about 5 out of 5. She does have a poor gait when ambulating and she does lean towards her left side. Sensation is grossly intact). negative: Disoriented to person, Disoriented to place, Disoriented to time, Facial droop, Slurred/abnml speech - Lab Results Fish Bones: 05/03/20 04:30 05/03/20 04:30 Other Labs: Lab Results x24hrs 05/03/20 05/03/20 05/02/20 Range/Units 04:30 04:30 23:50 WBC 8.4 (4.8-10.8) x10^3/uL RBC 4.05 L (4.20-5.40) 10^6/uL Hgb 11.7 L (12.0-16.0) g/dL Hct 38.0 (37.0-47.0) % MCV 93.8 (81.0-99.0) fL MCH 28.9 (27.0-31.0) pg MCHC 30.8 L (32.0-36.0) g/dL RDW 13.3 (12.0-15.0) % Plt Count 272 (130-450) 10^3/uL MPV 11.8 H (7.9-10.8) fL Neut # (Auto) 4.7 (1.5-6.6) 10^3/uL Lymph # (Auto) 2.8 (1.5-3.5) 10^3/uL [place] # (Auto) 0.5 (0.0-1.0) 10^3/uL Eos # (Auto) 0.2 (0.0-0.7) 10^3/uL Baso # (Auto) 0.1 (0.0-0.1) 10^3/uL Absolute Nucleated RBC 0.00 x10^3/uL Nucleated RBC % 0.0 /100WBC Sodium 141 (135-145) mmol/L Potassium 3.5 (3.5-5.0) mmol/L Chloride 109 (101-111) mmol/L Carbon Dioxide 24 (21-32) mmol/L Anion Gap 8.0 (6-13) BUN 16 (6-20) mg/dL Creatinine 0.5 (0.4-1.0) mg/dL Estimated GFR (MDRD) 120 (>89) Glucose 123 H (70-100) mg/dL Calcium 8.6 (8.5-10.3) mg/dL Troponin I High Sens (2.3-14.8) ng/L Urine Color YELLOW Urine Clarity CLEAR (CLEAR) Urine pH 6.0 (5.0-7.5) PH Ur Specific [place] 1.015 (1.002-1.030) Urine Protein NEGATIVE (NEGATIVE) mg/dL Urine Glucose (UA) NEGATIVE (NEGATIVE) mg/dL Urine Ketones NEGATIVE (NEGATIVE) mg/dL Urine Occult Blood NEGATIVE (NEGATIVE) Urine Nitrite NEGATIVE (NEGATIVE) Urine Bilirubin NEGATIVE (NEGATIVE) Urine Urobilinogen 0.2 (NORMAL) (NORMAL) E.U./dL Ur Leukocyte Esterase NEGATIVE (NEGATIVE) Ur Microscopic Review NOT INDICATED Urine Culture Comments NOT INDICATED 05/02/20 Range/Units 14:49 WBC (4.8-10.8) x10^3/uL RBC (4.20-5.40) 10^6/uL Hgb (12.0-16.0) g/dL Hct (37.0-47.0) % MCV (81.0-99.0) fL MCH (27.0-31.0) pg MCHC (32.0-36.0) g/dL RDW (12.0-15.0) % Plt Count (130-450) 10^3/uL MPV (7.9-10.8) fL Neut # (Auto) (1.5-6.6) 10^3/uL Lymph # (Auto) (1.5-3.5) 10^3/uL [place] # (Auto) (0.0-1.0) 10^3/uL Eos # (Auto) (0.0-0.7) 10^3/uL Baso # (Auto) (0.0-0.1) 10^3/uL Absolute Nucleated RBC x10^3/uL Nucleated RBC % /100WBC Sodium (135-145) mmol/L Potassium (3.5-5.0) mmol/L Chloride (101-111) mmol/L Carbon Dioxide (21-32) mmol/L Anion Gap (6-13) BUN (6-20) mg/dL Creatinine (0.4-1.0) mg/dL Estimated GFR (MDRD) (>89) Glucose (70-100) mg/dL Calcium (8.5-10.3) mg/dL Troponin I High Sens 11.4 (2.3-14.8) ng/L Urine Color Urine Clarity (CLEAR) Urine pH (5.0-7.5) PH Ur Specific [place] (1.002-1.030) Urine Protein (NEGATIVE) mg/dL Urine Glucose (UA) (NEGATIVE) mg/dL Urine Ketones (NEGATIVE) mg/dL Urine Occult Blood (NEGATIVE) Urine Nitrite (NEGATIVE) Urine Bilirubin (NEGATIVE) Urine Urobilinogen (NORMAL) E.U./dL Ur Leukocyte Esterase (NEGATIVE) Ur Microscopic Review Urine Culture Comments ABX Reporting Has patient been on IV antibiotics over the past 48 hours?: No Assessment/Plan - Problem List (1) CVA (cerebral vascular accident) Impression: MRI confirmed an area of acute ischemia in the right frontal lobe. Her left eye deficits have improved but she still difficulty with balance and gait. Echocardiogram was unremarkable except for grade III diastolic dysfunction and she has been in sinus rhythm with occasional PACs on telemetry. We will continue her on aspirin 81 mg daily and Lipitor 40 mg in the evening. Continue with PT and OT. They are recommending inpatient rehab. We will work with social work on disposition. Qualifiers: Laterality of affected vessel: right (2) Hypertension Impression: We have allowed for 24 hours of permissive hypertension. Her home antihypertensives have been resumed. (3) Hx of diabetes mellitus Impression: A1c is 5.9%. We discussed this and she will continue to monitor her diet. (4) Hyperlipidemia Impression: Will. We will continue fenofibrate. Discussed with patient importance of Lipitor and she is agreeable to it and so we will continue her on Lipitor 40 mg evening.
[2020-05-03] MEDS: polyethylene glycoL 3350 17 GM PACKET PO SCH ×2 (21:09→21:23)
[2020-05-03] MEDS: ALPRAZolam 0.25 MG TABLET PO SCH (21:09)
[2020-05-03] MEDS: ATORVASTATIN 40 MG TABLET PO SCH (21:09)
[2020-05-04] MEDS: SODIUM CHLORIDE FLUSH 0.9% 10 ML SYRINGE IVP SCH ×3 (00:07→15:46)
[2020-05-04 05:25] LABS: BASOPHILS # (AUTO) 0.1 10^3/uL (0.0-0.1); BASOPHILS % (AUTO) 0.9 %; EOSINOPHILS # (AUTO) 0.3 10^3/uL (0.0-0.7); EOSINOPHILS % (AUTO) 3.4 %; HGB - HEMOGLOBIN 12.5 g/dL (12.0-16.0); LYMPHOCYTES # (AUTO) 3.2 10^3/uL (1.5-3.5); LYMPHOCYTES % (AUTO) 36.3 %; MEAN CORPUSCULAR HEMOGLOBIN 30.4 pg (27.0-31.0); MEAN CORPUSCULAR HGB CONC 32.3 g/dL (32.0-36.0); MEAN CORPUSCULAR VOLUME 94.2 fL (81.0-99.0); MEAN PLATELET VOLUME 11.9 fL (7.9-10.8); MONOCYTES # (AUTO) 0.8 10^3/uL (0.0-1.0); MONOCYTES % (AUTO) 8.5 %; NEUTROPHILS # (AUTO) 4.4 10^3/uL (1.5-6.6); NEUTROPHILS % (AUTO) 50.3 %; PLT - PLATELET COUNT 260 10^3/uL (130-450); RED BLOOD COUNT 4.11 10^6/uL (4.20-5.40); RED CELL DISTRIBUTION WIDTH 13.2 % (12.0-15.0); WHITE BLOOD COUNT 8.8 x10^3/uL (4.8-10.8)
[2020-05-04 05:33] LABS: CALCIUM 9.2 mg/dL (8.5-10.3); CREATININE 0.5 mg/dL (0.4-1.0)
[2020-05-04] MEDS: nadoloL 20 MG TABLET PO SCH (11:26)
[2020-05-04] MEDS: ASPIRIN EC 81 MG TABLET PO SCH (11:27)
[2020-05-04] MEDS: FAMOTIDINE 20 MG TABLET PO SCH (11:27)
[2020-05-04] MEDS: POTASSIUM CHLORIDE 10 MEQ CAPSULE PO SCH (11:28)
[2020-05-04] MEDS: LOSARTAN 50 MG TABLET PO SCH (11:28)
[2020-05-04] MEDS: amLODIPine 5 MG TABLET PO SCH (11:28)
[2020-05-04] MEDS: FUROSEMIDE 20 MG TABLET PO SCH (11:28)
[2020-05-04] MEDS: FENOFIBRATE 48 MG TABLET PO SCH (11:29)
[2020-05-04] MEDS: polyethylene glycoL 3350 17 GM PACKET PO SCH (11:29)
--- NOTE | 2020-05-04 16:51 | PROVIDER PROGRESS NOTE ---
Assessment/Plan - Problem List (1) CVA (cerebral vascular accident) Qualifiers: Laterality of affected vessel: right Assessment/Plan: Patient has improved for weakness. Physical therapist and occupational therapist also reported patient improvement. It was recommended to in patient rehab for stroke. Consult with social work for in-pt placement. Continue aspirin and Lipitor, Continue work with PT and OT (2) Hypertension Impression: Stable. home antihypertensives will be resumed. (3) Hx of diabetes mellitus Impression: A1c is 5.9%. We discussed this and she will continue to monitor her diet. (4) Hyperlipidemia Impression: We will continue fenofibrate. continue her on Lipitor 40 mg evening - Current Meds Current Meds: Current Medications Generic Name Dose Route Start Last Admin Trade Name Freq PRN Reason Stop Dose Admin Acetaminophen 650 mg 05/02/20 04:42 05/04/20 11:22 Tylenol PO 650 mg Q4HR PRN Administration Pain 1 to 4 Albuterol 2.5 mg 05/03/20 07:15 05/03/20 20:00 INH 2.5 mg RTQ4H PRN Administration Wheezing Alprazolam 0.5 mg 05/02/20 21:23 05/03/20 21:09 Xanax PO 0.5 mg QPM [facility]ARGIE Administration Amlodipine Besylate 10 mg 05/03/20 09:00 05/04/20 11:28 Norvasc PO 10 mg DAILY [facility] Administration Aspirin 81 mg 05/03/20 09:00 05/04/20 11:27 Ecotrin PO 81 mg DAILY [facility] Administration Atorvastatin Calcium 40 mg 05/02/20 21:00 05/03/20 21:09 Lipitor PO 40 mg QPM [facility] Administration Famotidine 20 mg 05/04/20 09:00 05/04/20 11:27 Pepcid PO 20 mg DAILY [facility] Administration Fenofibrate 144 mg 05/03/20 09:00 05/04/20 11:29 Tricor PO 144 mg DAILY [facility] Administration Furosemide 20 mg 05/03/20 09:00 05/04/20 11:28 Lasix PO 20 mg DAILY [facility] Administration Losartan Potassium 100 mg 05/03/20 09:00 05/04/20 11:28 Cozaar PO 100 mg DAILY [facility] Administration Nadolol 40 mg 05/03/20 09:00 05/04/20 11:26 Corgard PO 40 mg DAILY [facility] Administration Polyethylene Glycol 17 gm 05/03/20 21:00 05/04/20 11:29 Miralax PO 17 gm DAILY [facility] Administration Potassium Chloride 10 meq 05/03/20 08:00 05/04/20 11:28 Micro-K PO 10 meq DAILYWM [facility]IE Administration Sodium Chloride 10 ml 05/02/20 09:00 05/04/20 15:46 Normal Saline Flush 0.9% IVP 10 ml 0100,0900,1700 MARGIE Administration - Lab Result Fish Bone Diagrams: 05/04/20 04:50 05/04/20 04:50 Subjective - Subjective Patient Reports: Feeling Better Objective Vital Signs: Vital Signs - 24 hr 05/03/20 05/03/20 05/04/20 20:00 20:18 00:31 Temperature 36.5 C 36.3 C L Heart Rate 60 Heart Rate [ 58 L 59 L Brachial] Respiratory 18 18 18 Rate Blood Pressure 140/69 H 131/57 H [Right Brachial artery] O2 Saturation 98 95 05/04/20 05/04/20 05/04/20 04:47 08:00 13:00 Temperature 36.6 C 36.7 C 36.6 C Heart Rate Heart Rate [ 66 63 52 L Brachial] Respiratory 18 18 18 Rate Blood Pressure 156/92 H 154/56 H 123/48 L [Right Brachial artery] O2 Saturation 98 93 95 05/04/20 16:20 Temperature 36.6 C Heart Rate Heart Rate [ 61 Brachial] Respiratory 18 Rate Blood Pressure 144/52 H [Right Brachial artery] O2 Saturation 97 Oxygen O2 Source Room air I&O (Last 24 Hrs): Intake and Output Totals x24h 05/02/20 05/03/20 05/04/20 23:59 23:59 23:59 Intake Total 2071.667 1390 300 Output Total 200 2350 450 Balance 1871.667 -960 -150 General: Alert, Oriented x3, No acute distress HEENT: Atraumatic Neck: Supple Lymphatic: no adenopathy Neuro: Alert, Focal Deficits, Oriented Times 3 Cardiovascular: Regular rate, Normal S1, Normal S2 Respiratory: Chest non-tender, No respiratory distress, Breath sounds nml Abdomen: Normal bowel sounds, Soft, No tenderness Extremities: Normal pulses - Results Results: Laboratory Results WBC 8.8 x10^3/uL (4.8-10.8) 05/04/20 04:50 RBC 4.11 10^6/uL (4.20-5.40) L 05/04/20 04:50 Hgb 12.5 g/dL (12.0-16.0) 05/04/20 04:50 Hct 38.7 % (37.0-47.0) 05/04/20 04:50 MCV 94.2 fL (81.0-99.0) 05/04/20 04:50 MCH 30.4 pg (27.0-31.0) 05/04/20 04:50 MCHC 32.3 g/dL (32.0-36.0) 05/04/20 04:50 RDW 13.2 % (12.0-15.0) 05/04/20 04:50 Plt Count 260 10^3/uL (130-450) 05/04/20 04:50 MPV 11.9 fL (7.9-10.8) H 05/04/20 04:50 Neut # (Auto) 4.4 10^3/uL (1.5-6.6) 05/04/20 04:50 Lymph # (Auto) 3.2 10^3/uL (1.5-3.5) 05/04/20 04:50 [place] # (Auto) 0.8 10^3/uL (0.0-1.0) 05/04/20 04:50 Eos # (Auto) 0.3 10^3/uL (0.0-0.7) 05/04/20 04:50 Baso # (Auto) 0.1 10^3/uL (0.0-0.1) 05/04/20 04:50 Absolute Nucleated RBC 0.00 x10^3/uL 05/04/20 04:50 Nucleated RBC % 0.0 /100WBC 05/04/20 04:50 PT 12.2 secs (9.9-12.6) 05/02/20 02:40 INR 1.1 (0.8-1.2) 05/02/20 02:40 APTT 26.3 secs (24.9-33.3) 05/02/20 02:40 Sodium 142 mmol/L (135-145) 05/04/20 04:50 Potassium 3.7 mmol/L (3.5-5.0) 05/04/20 04:50 Chloride 109 mmol/L (101-111) 05/04/20 04:50 Carbon Dioxide 26 mmol/L (21-32) 05/04/20 04:50 Anion Gap 7.0 (6-13) 05/04/20 04:50 BUN 16 mg/dL (6-20) 05/04/20 04:50 Creatinine 0.5 mg/dL (0.4-1.0) 05/04/20 04:50 Estimated GFR (MDRD) 120 (>89) 05/04/20 04:50 Glucose 128 mg/dL (70-100) H 05/04/20 04:50 Estimat Average Glucose 123 mg/dL (70-100) H 05/02/20 05:13 Hemoglobin A1c % 5.9 % (4.27-6.07) 05/02/20 05:13 Calcium 9.2 mg/dL (8.5-10.3) 05/04/20 04:50 Magnesium 1.8 mg/dL (1.7-2.8) 05/02/20 02:40 Total Bilirubin 0.7 mg/dL (0.2-1.0) 05/02/20 02:40 AST 21 IU/L (10-42) 05/02/20 02:40 ALT 11 IU/L (10-60) 05/02/20 02:40 Alkaline Phosphatase 69 IU/L (42-121) 05/02/20 02:40 Total Creatine Kinase 76 IU/L (22-269) 05/02/20 02:40 Troponin I High Sens 11.4 ng/L (2.3-14.8) 05/02/20 14:49 B-Natriuretic Peptide 149 pg/mL (5-100) H 05/02/20 02:40 Total Protein 7.8 g/dL (6.7-8.2) 05/02/20 02:40 Albumin 4.2 g/dL (3.2-5.5) 05/02/20 02:40 Globulin 3.6 g/dL (2.1-4.2) 05/02/20 02:40 Albumin/Globulin Ratio 1.2 (1.0-2.2) 05/02/20 02:40 Triglycerides 94 mg/dL (-149) 05/02/20 05:13 Cholesterol 151 mg/dL (-199) 05/02/20 05:13 LDL Cholesterol, Calc 88 mg/dL (-129) 05/02/20 05:13 VLDL Cholesterol 19 mg/dL 05/02/20 05:13 HDL Cholesterol 44 mg/dL (60-) L 05/02/20 05:13 LDL/HDL Ratio 2.0 (<4.4) 05/02/20 05:13 Cholesterol/HDL Ratio 3.4 (<4.4) 05/02/20 05:13 Lipase 33 U/L (22-51) 05/02/20 02:40 Urine Color YELLOW 05/02/20 23:50 Urine Clarity CLEAR (CLEAR) 05/02/20 23:50 Urine pH 6.0 PH (5.0-7.5) 05/02/20 23:50 Ur Specific [place] 1.015 (1.002-1.030) 05/02/20 23:50 Urine Protein NEGATIVE mg/dL (NEGATIVE) 05/02/20 23:50 Urine Glucose (UA) NEGATIVE mg/dL (NEGATIVE) 05/02/20 23:50 Urine Ketones NEGATIVE mg/dL (NEGATIVE) 05/02/20 23:50 Urine Occult Blood NEGATIVE (NEGATIVE) 05/02/20 23:50 Urine Nitrite NEGATIVE (NEGATIVE) 05/02/20 23:50 Urine Bilirubin NEGATIVE (NEGATIVE) 05/02/20 23:50 Urine Urobilinogen 0.2 (NORMAL) E.U./dL (NORMAL) 05/02/20 23:50 Ur Leukocyte Esterase NEGATIVE (NEGATIVE) 05/02/20 23:50 Urine RBC 0-5 /HPF (0-5) 05/02/20 03:55 Urine WBC 4-5 /HPF (0-5) 05/02/20 03:55 Ur Squamous Epith Cells FEW Squamous (<= Few) 05/02/20 03:55 Urine Bacteria Rare /HPF (None Seen) 05/02/20 03:55 Ur Microscopic Review NOT INDICATED 05/02/20 23:50 Urine Culture Comments NOT INDICATED 05/02/20 23:50 Urine Opiates Screen NEGATIVE (NEGATIVE) 05/02/20 03:55 Ur Oxycodone Screen NEGATIVE (NEGATIVE) 05/02/20 03:55 Urine Methadone Screen NEGATIVE (NEGATIVE) 05/02/20 03:55 Ur Propoxyphene Screen NEGATIVE (NEGATIVE) 05/02/20 03:55 Ur Barbiturates Screen NEGATIVE (NEGATIVE) 05/02/20 03:55 Ur Tricyclics Screen NEGATIVE (NEGATIVE) 05/02/20 03:55 Ur Phencyclidine Scrn NEGATIVE (NEGATIVE) 05/02/20 03:55 Ur Amphetamine Screen NEGATIVE (NEGATIVE) 05/02/20 03:55 U Methamphetamines Scrn NEGATIVE (NEGATIVE) 05/02/20 03:55 U Benzodiazepines Scrn POSITIVE (NEGATIVE) H 05/02/20 03:55 Urine Cocaine Screen NEGATIVE (NEGATIVE) 05/02/20 03:55 U Cannabinoids Screen NEGATIVE (NEGATIVE) 05/02/20 03:55 Ethyl Alcohol < 5.0 mg/dL 05/02/20 02:40 ABX Reporting Has patient been on IV antibiotics over the past 48 hours?: No Current Medications - Current Medications Current Medications: Active Medications Acetaminophen (Tylenol) 650 mg PO Q4HR PRN PRN Reason: Pain 1 to 4 Last Admin: 05/04/20 11:22 Dose: 650 mg Documented by: Albuterol () 2.5 mg INH RTQ4H PRN PRN Reason: Wheezing Last Admin: 05/03/20 20:00 Dose: 2.5 mg Documented by: Alprazolam (Xanax) 0.5 mg PO QPM [facility] Last Admin: 05/03/20 21:09 Dose: 0.5 mg Documented by: Amlodipine Besylate (Norvasc) 10 mg PO DAILY [facility] Last Admin: 05/04/20 11:28 Dose: 10 mg Documented by: Aspirin (Ecotrin) 81 mg PO DAILY [facility] Last Admin: 05/04/20 11:27 Dose: 81 mg Documented by: Atorvastatin Calcium (Lipitor) 40 mg PO QPM [facility] Last Admin: 05/03/20 21:09 Dose: 40 mg Documented by: Famotidine (Pepcid) 20 mg PO DAILY [facility] Last Admin: 05/04/20 11:27 Dose: 20 mg Documented by: Fenofibrate (Tricor) 144 mg PO DAILY [facility] Last Admin: 05/04/20 11:29 Dose: 144 mg Documented by: Furosemide (Lasix) 20 mg PO DAILY [facility] Last Admin: 05/04/20 11:28 Dose: 20 mg Documented by: Losartan Potassium (Cozaar) 100 mg PO DAILY [facility] Last Admin: 05/04/20 11:28 Dose: 100 mg Documented by: Nadolol (Corgard) 40 mg PO DAILY [facility] Last Admin: 05/04/20 11:26 Dose: 40 mg Documented by: Ondansetron HCl (Zofran Odt) 4 mg TL Q6HR PRN PRN Reason: Nausea / Vomiting Polyethylene Glycol (Miralax) 17 gm PO DAILY [facility] Last Admin: 05/04/20 11:29 Dose: 17 gm Documented by: Potassium Chloride (Micro-K) 10 meq PO DAILYWM [facility] Last Admin: 05/04/20 11:28 Dose: 10 meq Documented by: Sodium Chloride (Normal Saline Flush 0.9%) 10 ml IVP PRN PRN PRN Reason: NEEDED PER PROVIDER ORDERS Sodium Chloride (Normal Saline Flush 0.9%) 10 ml IVP 0100,0900,1700 [facility] Last Admin: 05/04/20 15:46 Dose: 10 ml Documented by: ALPRAZolam [Alprazolam] 0.5 mg PO QPM PRN 05/02/20 Albuterol Sulfate [Albuterol Sulfate Hfa] 1 inh PO Q4HR PRN 05/02/20 Amlodipine Besylate 10 mg PO DAILY 05/02/20 Fenofibrate Nanocrystallized [Fenofibrate] 145 mg PO DAILY 05/02/20 Furosemide [Lasix] 20 mg PO DAILY 05/02/20 Losartan Potassium 100 mg PO DAILY 05/02/20 Nadolol [Corgard] 40 mg PO DAILY 05/02/20 Potassium Chloride 10 meq PO DAILY 05/02/20
[2020-05-04] MEDS: ATORVASTATIN 40 MG TABLET PO SCH (20:22)
[2020-05-04] MEDS: ALPRAZolam 0.25 MG TABLET PO SCH (20:22)
[2020-05-04] MEDS: ALBUTEROL NEB 2.5 MG/3 ML INH PRN (20:36)
[2020-05-05] MEDS: ALBUTEROL NEB 2.5 MG/3 ML INH PRN ×2 (07:32→19:51)
[2020-05-05] MEDS ORDERED: PHENAZOPYRIDINE 100 MG TABLET PO PRN (08:02)
[2020-05-05 09:02] LABS: BASOPHILS # (AUTO) 0.1 10^3/uL (0.0-0.1); BASOPHILS % (AUTO) 0.7 %; EOSINOPHILS # (AUTO) 0.3 10^3/uL (0.0-0.7); EOSINOPHILS % (AUTO) 3.6 %; HGB - HEMOGLOBIN 12.6 g/dL (12.0-16.0); LYMPHOCYTES # (AUTO) 2.9 10^3/uL (1.5-3.5); LYMPHOCYTES % (AUTO) 35.8 %; MEAN CORPUSCULAR HEMOGLOBIN 30.2 pg (27.0-31.0); MEAN CORPUSCULAR HGB CONC 32.6 g/dL (32.0-36.0); MEAN CORPUSCULAR VOLUME 92.8 fL (81.0-99.0); MEAN PLATELET VOLUME 11.3 fL (7.9-10.8); MONOCYTES # (AUTO) 0.6 10^3/uL (0.0-1.0); MONOCYTES % (AUTO) 7.4 %; NEUTROPHILS # (AUTO) 4.2 10^3/uL (1.5-6.6); PLT - PLATELET COUNT 248 10^3/uL (130-450); RED BLOOD COUNT 4.17 10^6/uL (4.20-5.40); RED CELL DISTRIBUTION WIDTH 13.2 % (12.0-15.0); WHITE BLOOD COUNT 8.1 x10^3/uL (4.8-10.8)
[2020-05-05 09:07] LABS: CALCIUM 9.2 mg/dL (8.5-10.3); CREATININE 0.7 mg/dL (0.4-1.0)
[2020-05-05] MEDS: SODIUM CHLORIDE FLUSH 0.9% 10 ML SYRINGE IVP SCH ×3 (10:32→19:14)
[2020-05-05] MEDS: POTASSIUM CHLORIDE 10 MEQ CAPSULE PO SCH (10:33)
[2020-05-05] MEDS: amLODIPine 5 MG TABLET PO SCH (10:35)
[2020-05-05] MEDS: FENOFIBRATE 48 MG TABLET PO SCH (10:36)
[2020-05-05] MEDS: FAMOTIDINE 20 MG TABLET PO SCH (10:37)
[2020-05-05] MEDS: FUROSEMIDE 20 MG TABLET PO SCH (10:38)
[2020-05-05] MEDS: LOSARTAN 50 MG TABLET PO SCH (10:40)
[2020-05-05] MEDS: nadoloL 20 MG TABLET PO SCH (10:42)
[2020-05-05] MEDS: polyethylene glycoL 3350 17 GM PACKET PO SCH (10:45)
[2020-05-05] MEDS: ASPIRIN EC 81 MG TABLET PO SCH (10:48)
--- NOTE | 2020-05-05 16:26 | PROVIDER PROGRESS NOTE ---
Assessment/Plan - Problem List (1) CVA (cerebral vascular accident) Qualifiers: Laterality of affected vessel: right Assessment/Plan: 05/05, social work supervisor report patient has no inpatient rehab placement yet. Continue physical therapist and occupational therapist, continue aspirin, Lipitor medication Patient has improved for weakness. Physical therapist and occupational therapist also reported patient improvement. It was recommended to in patient rehab for stroke. Consult with social work for in-pt placement. Continue aspirin and Lipitor, Continue work with PT and OT (2) Hypertension Impression: Stable. home antihypertensives will be resumed. (3) Hx of diabetes mellitus Impression: A1c is 5.9%. We discussed this and she will continue to monitor her diet. (4) Hyperlipidemia Impression: We will continue fenofibrate. continue her on Lipitor 40 mg evening - Current Meds Current Meds: Current Medications Generic Name Dose Route Start Last Admin Trade Name Freq PRN Reason Stop Dose Admin Acetaminophen 650 mg 05/02/20 04:42 05/04/20 11:22 Tylenol PO 650 mg Q4HR PRN Administration Pain 1 to 4 Albuterol 2.5 mg 05/03/20 07:15 05/05/20 07:32 INH 2.5 mg RTQ4H PRN Administration Wheezing Alprazolam 0.5 mg 05/02/20 21:23 05/04/20 20:22 Xanax PO 0.5 mg QPM MARGIE Administration Amlodipine Besylate 10 mg 05/03/20 09:00 05/05/20 10:35 Norvasc PO 10 mg DAILY MARGIE Administration Aspirin 81 mg 05/03/20 09:00 05/05/20 10:48 Ecotrin PO 81 mg DAILY MARGIE Administration Atorvastatin Calcium 40 mg 05/02/20 21:00 05/04/20 20:22 Lipitor PO 40 mg QPM MARGIE Administration Famotidine 20 mg 05/04/20 09:00 05/05/20 10:37 Pepcid PO 20 mg DAILY MARGIE Administration Fenofibrate 144 mg 05/03/20 09:00 05/05/20 10:36 Tricor PO 144 mg DAILY MARGIE Administration Furosemide 20 mg 05/03/20 09:00 05/05/20 10:38 Lasix PO 20 mg DAILY MARGIE Administration Losartan Potassium 100 mg 05/03/20 09:00 05/05/20 10:40 Cozaar PO 100 mg DAILY MARGIE Administration Nadolol 40 mg 05/03/20 09:00 05/05/20 10:42 Corgard PO 40 mg DAILY MARGIE Administration Polyethylene Glycol 17 gm 05/03/20 21:00 05/05/20 10:45 Miralax PO Not Given DAILY MARGIE Potassium Chloride 10 meq 05/03/20 08:00 05/05/20 10:33 Micro-K PO 10 meq DAILYWM MARGIE Administration Sodium Chloride 10 ml 05/02/20 09:00 05/05/20 10:44 Normal Saline Flush 0.9% IVP 10 ml 0100,0900,1700 MARGIE Administration - Lab Result Fish Bone Diagrams: 05/05/20 08:48 05/05/20 08:48 - Additional Planning My Orders: My Active Orders 05/05/20 UA w/ MICROSCOPIC, CULT IF [URIN] Urgent 05/06/20 05:00 BMP - BASIC METABOLIC PANEL [CHEM] DAILYLAB CBC - COMP BLD CT W/AUTO DIFF [HEME] DAILYLAB 05/07/20 05:00 BMP - BASIC METABOLIC PANEL [CHEM] DAILYLAB CBC - COMP BLD CT W/AUTO DIFF [HEME] DAILYLAB 05/08/20 05:00 BMP - BASIC METABOLIC PANEL [CHEM] DAILYLAB CBC - COMP BLD CT W/AUTO DIFF [HEME] DAILYLAB 05/09/20 05:00 BMP - BASIC METABOLIC PANEL [CHEM] DAILYLAB CBC - COMP BLD CT W/AUTO DIFF [HEME] DAILYLAB Subjective - Subjective Patient Reports: Feeling Better Objective Vital Signs: Vital Signs - 24 hr 05/04/20 05/04/20 05/05/20 20:27 20:35 01:00 Temperature 36.7 C 36.4 C L Heart Rate 55 L Heart Rate [ 59 L 53 L Brachial] Respiratory 18 18 18 Rate Blood Pressure 159/51 H 144/52 H [Right Brachial artery] O2 Saturation 98 96 05/05/20 05/05/20 05/05/20 06:12 07:32 08:58 Temperature 36.6 C 36.6 C Heart Rate 58 L Heart Rate [ 58 L 61 Brachial] Respiratory 20 18 19 Rate Blood Pressure 148/48 H 147/52 H [Right Brachial artery] O2 Saturation 94 94 05/05/20 05/05/20 05/05/20 11:13 13:00 15:45 Temperature 36.6 C 36.5 C 36.8 C Heart Rate 61 Heart Rate [ 62 58 L Brachial] Respiratory 20 20 20 Rate Blood Pressure 145/52 H 119/69 [Right Brachial artery] O2 Saturation 96 96 59 L 05/05/20 15:52 Temperature 36.7 C Heart Rate Heart Rate [ 51 L Brachial] Respiratory 16 Rate Blood Pressure 115/61 [Right Brachial artery] O2 Saturation 97 Oxygen O2 Source Room air I&O (Last 24 Hrs): Intake and Output Totals x24h 05/03/20 05/04/20 05/05/20 23:59 23:59 23:59 Intake Total 1390 420 480 Output Total 2350 750 200 Balance -960 -330 280 General: Alert, Oriented x3, No acute distress HEENT: Atraumatic Neck: Supple Lymphatic: no adenopathy Neuro: Alert, Focal Deficits, Oriented Times 3 Cardiovascular: Regular rate, Normal S1, Normal S2 Respiratory: Chest non-tender, No respiratory distress, Breath sounds nml Abdomen: Normal bowel sounds, Soft, No tenderness Extremities: Normal pulses - Results Results: Laboratory Results WBC 8.1 x10^3/uL (4.8-10.8) 05/05/20 08:48 RBC 4.17 10^6/uL (4.20-5.40) L 05/05/20 08:48 Hgb 12.6 g/dL (12.0-16.0) 05/05/20 08:48 Hct 38.7 % (37.0-47.0) 05/05/20 08:48 MCV 92.8 fL (81.0-99.0) 05/05/20 08:48 MCH 30.2 pg (27.0-31.0) 05/05/20 08:48 MCHC 32.6 g/dL (32.0-36.0) 05/05/20 08:48 RDW 13.2 % (12.0-15.0) 05/05/20 08:48 Plt Count 248 10^3/uL (130-450) 05/05/20 08:48 MPV 11.3 fL (7.9-10.8) H 05/05/20 08:48 Neut # (Auto) 4.2 10^3/uL (1.5-6.6) 05/05/20 08:48 Lymph # (Auto) 2.9 10^3/uL (1.5-3.5) 05/05/20 08:48 [place] # (Auto) 0.6 10^3/uL (0.0-1.0) 05/05/20 08:48 Eos # (Auto) 0.3 10^3/uL (0.0-0.7) 05/05/20 08:48 Baso # (Auto) 0.1 10^3/uL (0.0-0.1) 05/05/20 08:48 Absolute Nucleated RBC 0.00 x10^3/uL 05/05/20 08:48 Nucleated RBC % 0.0 /100WBC 05/05/20 08:48 PT 12.2 secs (9.9-12.6) 05/02/20 02:40 INR 1.1 (0.8-1.2) 05/02/20 02:40 APTT 26.3 secs (24.9-33.3) 05/02/20 02:40 Sodium 142 mmol/L (135-145) 05/05/20 08:48 Potassium 3.8 mmol/L (3.5-5.0) 05/05/20 08:48 Chloride 108 mmol/L (101-111) 05/05/20 08:48 Carbon Dioxide 27 mmol/L (21-32) 05/05/20 08:48 Anion Gap 7.0 (6-13) 05/05/20 08:48 BUN 18 mg/dL (6-20) 05/05/20 08:48 Creatinine 0.7 mg/dL (0.4-1.0) 05/05/20 08:48 Estimated GFR (MDRD) 81 (>89) L 05/05/20 08:48 Glucose 138 mg/dL (70-100) H 05/05/20 08:48 Estimat Average Glucose 123 mg/dL (70-100) H 05/02/20 05:13 Hemoglobin A1c % 5.9 % (4.27-6.07) 05/02/20 05:13 Calcium 9.2 mg/dL (8.5-10.3) 05/05/20 08:48 Magnesium 1.8 mg/dL (1.7-2.8) 05/02/20 02:40 Total Bilirubin 0.7 mg/dL (0.2-1.0) 05/02/20 02:40 AST 21 IU/L (10-42) 05/02/20 02:40 ALT 11 IU/L (10-60) 05/02/20 02:40 Alkaline Phosphatase 69 IU/L (42-121) 05/02/20 02:40 Total Creatine Kinase 76 IU/L (22-269) 05/02/20 02:40 Troponin I High Sens 11.4 ng/L (2.3-14.8) 05/02/20 14:49 B-Natriuretic Peptide 149 pg/mL (5-100) H 05/02/20 02:40 Total Protein 7.8 g/dL (6.7-8.2) 05/02/20 02:40 Albumin 4.2 g/dL (3.2-5.5) 05/02/20 02:40 Globulin 3.6 g/dL (2.1-4.2) 05/02/20 02:40 Albumin/Globulin Ratio 1.2 (1.0-2.2) 05/02/20 02:40 Triglycerides 94 mg/dL (-149) 05/02/20 05:13 Cholesterol 151 mg/dL (-199) 05/02/20 05:13 LDL Cholesterol, Calc 88 mg/dL (-129) 05/02/20 05:13 VLDL Cholesterol 19 mg/dL 05/02/20 05:13 HDL Cholesterol 44 mg/dL (60-) L 05/02/20 05:13 LDL/HDL Ratio 2.0 (<4.4) 05/02/20 05:13 Cholesterol/HDL Ratio 3.4 (<4.4) 05/02/20 05:13 Lipase 33 U/L (22-51) 05/02/20 02:40 Urine Color YELLOW 05/02/20 23:50 Urine Clarity CLEAR (CLEAR) 05/02/20 23:50 Urine pH 6.0 PH (5.0-7.5) 05/02/20 23:50 Ur Specific [place] 1.015 (1.002-1.030) 05/02/20 23:50 Urine Protein NEGATIVE mg/dL (NEGATIVE) 05/02/20 23:50 Urine Glucose (UA) NEGATIVE mg/dL (NEGATIVE) 05/02/20 23:50 Urine Ketones NEGATIVE mg/dL (NEGATIVE) 05/02/20 23:50 Urine Occult Blood NEGATIVE (NEGATIVE) 05/02/20 23:50 Urine Nitrite NEGATIVE (NEGATIVE) 05/02/20 23:50 Urine Bilirubin NEGATIVE (NEGATIVE) 05/02/20 23:50 Urine Urobilinogen 0.2 (NORMAL) E.U./dL (NORMAL) 05/02/20 23:50 Ur Leukocyte Esterase NEGATIVE (NEGATIVE) 05/02/20 23:50 Urine RBC 0-5 /HPF (0-5) 05/02/20 03:55 Urine WBC 4-5 /HPF (0-5) 05/02/20 03:55 Ur Squamous Epith Cells FEW Squamous (<= Few) 05/02/20 03:55 Urine Bacteria Rare /HPF (None Seen) 05/02/20 03:55 Ur Microscopic Review NOT INDICATED 05/02/20 23:50 Urine Culture Comments NOT INDICATED 05/02/20 23:50 Urine Opiates Screen NEGATIVE (NEGATIVE) 05/02/20 03:55 Ur Oxycodone Screen NEGATIVE (NEGATIVE) 05/02/20 03:55 Urine Methadone Screen NEGATIVE (NEGATIVE) 05/02/20 03:55 Ur Propoxyphene Screen NEGATIVE (NEGATIVE) 05/02/20 03:55 Ur Barbiturates Screen NEGATIVE (NEGATIVE) 05/02/20 03:55 Ur Tricyclics Screen NEGATIVE (NEGATIVE) 05/02/20 03:55 Ur Phencyclidine Scrn NEGATIVE (NEGATIVE) 05/02/20 03:55 Ur Amphetamine Screen NEGATIVE (NEGATIVE) 05/02/20 03:55 U Methamphetamines Scrn NEGATIVE (NEGATIVE) 05/02/20 03:55 U Benzodiazepines Scrn POSITIVE (NEGATIVE) H 05/02/20 03:55 Urine Cocaine Screen NEGATIVE (NEGATIVE) 05/02/20 03:55 U Cannabinoids Screen NEGATIVE (NEGATIVE) 05/02/20 03:55 Ethyl Alcohol < 5.0 mg/dL 05/02/20 02:40 Coronavirus (PCR) NEGATIVE 05/03/20 17:05 ABX Reporting Has patient been on IV antibiotics over the past 48 hours?: No Current Medications - Current Medications Current Medications: Active Medications Acetaminophen (Tylenol) 650 mg PO Q4HR PRN PRN Reason: Pain 1 to 4 Last Admin: 05/04/20 11:22 Dose: 650 mg Documented by: Albuterol () 2.5 mg INH RTQ4H PRN PRN Reason: Wheezing Last Admin: 05/05/20 07:32 Dose: 2.5 mg Documented by: Alprazolam (Xanax) 0.5 mg PO QPM [facility] Last Admin: 05/04/20 20:22 Dose: 0.5 mg Documented by: Amlodipine Besylate (Norvasc) 10 mg PO DAILY [facility] Last Admin: 05/05/20 10:35 Dose: 10 mg Documented by: Aspirin (Ecotrin) 81 mg PO DAILY [facility] Last Admin: 05/05/20 10:48 Dose: 81 mg Documented by: Atorvastatin Calcium (Lipitor) 40 mg PO QPM [facility] Last Admin: 05/04/20 20:22 Dose: 40 mg Documented by: Famotidine (Pepcid) 20 mg PO DAILY [facility] Last Admin: 05/05/20 10:37 Dose: 20 mg Documented by: Fenofibrate (Tricor) 144 mg PO DAILY [facility] Last Admin: 05/05/20 10:36 Dose: 144 mg Documented by: Furosemide (Lasix) 20 mg PO DAILY [facility] Last Admin: 05/05/20 10:38 Dose: 20 mg Documented by: Losartan Potassium (Cozaar) 100 mg PO DAILY [facility] Last Admin: 05/05/20 10:40 Dose: 100 mg Documented by: Nadolol (Corgard) 40 mg PO DAILY [facility] Last Admin: 05/05/20 10:42 Dose: 40 mg Documented by: Ondansetron HCl (Zofran Odt) 4 mg TL Q6HR PRN PRN Reason: Nausea / Vomiting Polyethylene Glycol (Miralax) 17 gm PO DAILY [facility] Last Admin: 05/05/20 10:45 Dose: Not Given Documented by: Potassium Chloride (Micro-K) 10 meq PO DAILYWM [facility] Last Admin: 05/05/20 10:33 Dose: 10 meq Documented by: Sodium Chloride (Normal Saline Flush 0.9%) 10 ml IVP PRN PRN PRN Reason: NEEDED PER PROVIDER ORDERS Sodium Chloride (Normal Saline Flush 0.9%) 10 ml IVP 0100,0900,1700 [facility] Last Admin: 05/05/20 10:44 Dose: 10 ml Documented by: ALPRAZolam [Alprazolam] 0.5 mg PO QPM PRN 05/02/20 Albuterol Sulfate [Albuterol Sulfate Hfa] 1 inh PO Q4HR PRN 05/02/20 Amlodipine Besylate 10 mg PO DAILY 05/02/20 Fenofibrate Nanocrystallized [Fenofibrate] 145 mg PO DAILY 05/02/20 Furosemide [Lasix] 20 mg PO DAILY 05/02/20 Losartan Potassium 100 mg PO DAILY 05/02/20 Nadolol [Corgard] 40 mg PO DAILY 05/02/20 Potassium Chloride 10 meq PO DAILY 05/02/20
[2020-05-05] MEDS: ATORVASTATIN 40 MG TABLET PO SCH (21:43)
[2020-05-05] MEDS: ALPRAZolam 0.25 MG TABLET PO SCH (21:43)
[2020-05-06 05:22] LABS: BASOPHILS # (AUTO) 0.1 10^3/uL (0.0-0.1); EOSINOPHILS # (AUTO) 0.3 10^3/uL (0.0-0.7); EOSINOPHILS % (AUTO) 3.6 %; HGB - HEMOGLOBIN 11.9 g/dL (12.0-16.0); LYMPHOCYTES # (AUTO) 3.4 10^3/uL (1.5-3.5); MEAN CORPUSCULAR HEMOGLOBIN 30.1 pg (27.0-31.0); MEAN CORPUSCULAR HGB CONC 32.3 g/dL (32.0-36.0); MEAN CORPUSCULAR VOLUME 93.2 fL (81.0-99.0); MEAN PLATELET VOLUME 11.8 fL (7.9-10.8); MONOCYTES # (AUTO) 0.9 10^3/uL (0.0-1.0); MONOCYTES % (AUTO) 9.8 %; NEUTROPHILS # (AUTO) 4.2 10^3/uL (1.5-6.6); NEUTROPHILS % (AUTO) 47.2 %; PLT - PLATELET COUNT 257 10^3/uL (130-450); RED BLOOD COUNT 3.95 10^6/uL (4.20-5.40); WHITE BLOOD COUNT 8.9 x10^3/uL (4.8-10.8)
[2020-05-06 05:31] LABS: CREATININE 0.7 mg/dL (0.4-1.0)
[2020-05-06] MEDS: SODIUM CHLORIDE FLUSH 0.9% 10 ML SYRINGE IVP SCH ×2 (07:06→10:02)
[2020-05-06] MEDS: FUROSEMIDE 20 MG TABLET PO SCH (10:01)
[2020-05-06] MEDS: FENOFIBRATE 48 MG TABLET PO SCH (10:01)
[2020-05-06] MEDS: nadoloL 20 MG TABLET PO SCH (10:01)
[2020-05-06] MEDS: FAMOTIDINE 20 MG TABLET PO SCH (10:01)
[2020-05-06] MEDS: POTASSIUM CHLORIDE 10 MEQ CAPSULE PO SCH (10:01)
[2020-05-06] MEDS: LOSARTAN 50 MG TABLET PO SCH (10:01)
[2020-05-06] MEDS: amLODIPine 5 MG TABLET PO SCH (10:01)
[2020-05-06] MEDS: ASPIRIN EC 81 MG TABLET PO SCH (10:02)
[2020-05-06] MEDS: polyethylene glycoL 3350 17 GM PACKET PO SCH (10:02)
--- NOTE | 2020-05-06 13:08 | Discharge Plan ---
"Discharge Plan for SNF / [facility] - Discharge Plan And Transition Orders Problem Reviewed?: Yes Disposition: 02 Transfer Acute Care Hosp Condition: Stable Allergies and Adverse Reactions: Allergies Allergy/AdvReac Type Severity Reaction Status Date / Time Penicillins Allergy Rash Verified 05/02/20 02:57 Health Concerns: stroke Plan of Treatment: continue PT/OT inpt setting, continue medical management and followup with neurologist as out-pt. Care Goals: stabilization and improvement of your medical conditions Assessment: discussed with pt about the care plan, she understood and agreed. - SNF / [facility] Transition Orders Admit to (Facility): [facility] Under the care of (Name): Provider of [facility] Discharge Diagnosis: stroke, HTN, HLD Medicare Certification Statement: I certify that [facility] care is medically necessary on a continuing basis for any of the conditions for which she/he is receiving care during hospitalization. Notify PCP of admission and forward orders to primary provider for signature. Weight on admission and: Daily Call PCP immediately if weight increases by: 2 kg Other Notification Orders: Call PCP immediately if patient develops dyspnea, chest pain/tightness or edema. House Bowel Program: Yes Additional Bowel Program Orders: If no BM after 2 days, nurse may give M.O.M. 30ml PO PRN and/or ducolax Supp 1 NE and/or AFTAB 250mg P.O., and/or senna 1-2 tabs PO. On day 3 nurse may give repeat above order until residents constipation is resolved. Annual Influenza Vaccine (between Apr 04 and November 01): Yes Two-step PPD per [facility] [phone] or approved exception documents: Yes Treatments & Other Orders: continue PT/OT inpt setting, continue medical management and followup with neurologist as out-pt Medication Orders: PLEASE REFER TO THE DISCHARGE MEDICATION LIST. Insulin Orders?: No - Medications New Prescriptions: Aspirin EC [Ecotrin] 81 mg PO DAILY #30 tablet Atorvastatin [Lipitor] 40 mg PO QPM #30 tablet - Diet Type: Geriatric Texture: Dysphagia mech Liquids: Thin May have monthly special meal: Yes - Therapies | Activity Therapy: Evaluation | Treat if indicated: PT, OT Rehabilitation Potential: Maximize functional status Activity: Activity as Tolerated"
[2020-05-06] MEDS: ALBUTEROL NEB 2.5 MG/3 ML INH PRN (13:12)
--- NOTE | 2020-05-06 13:18 | DISCHARGE SUMMARY ---
Discharge Summary Admit Date: 05/02/20 Discharge Date: 05/06/20 Discharging Provider: Jatinder Dewey Primary Care Provider: Dr Daylin Cheung Condition at Discharge: Stable Discharge Disposition: 02 Transfer Acute Care Hosp Discharge Facility [facility]: [facility] - DIAGNOSES Discharge Diagnoses with Status of Each Condition: (1) CVA (cerebral vascular accident) MRI of the brain show patient had acute ischemia in the high right frontal lobe OMAR territory. Patient slurred speech was resolved, patient's left-sided weakness also improved. PT/OT evaluation in the treated patient, patient was recommended to inpatient rehab. Continue aspirin and Lipitor, Continue work with PT and OT. Patient has no issue for dysphagia diet. Patient was prescribed aspirin and Lipitor. (2) Hypertension stable (3) Hx of diabetes mellitus A1c is 5.9%. continue to monitor her diet. (4) Hyperlipidemia Stable - HPI History of Present Illness: refer from Dr. Painter's HPI on 05/02/2020 Patient is a 74-year-old female Who presented to the ED with left-sided weakness and slurred speech.Her symptoms started around 1:30 AM when she was trying to take a bath. She also became dizzy. She attempted to walk around this time and fell several times in the bathroom. She called her son who found her on the living room floor.He then called 911 and EMS brought her to the ED. By the time of arrival to the ED the patient's slurred speech had resolved. However her weakness persist.Her son last talked to her around 4 PM during which time she appeared normal. At baseline the patient is independent of activities of daily living. She walks without the help of a walking aid. 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 Prior to this incident she had not had any complaints of chest pain, dyspnea, abdominal pain, nausea, vomiting, fever or chills. Her medical history significant for hypertension, COPD, hyperlipidemia, anxiety and diabetes mellitus which is diet controlled only. As a result of her presentation and persistence of her symptoms she is being admitted for further work-up. - HOSPITAL COURSE Hospital Course: Patient was admitted for left-sided weakness and slurred speech. MRI of the brain show patient had acute ischemia in the high right frontal lobe OMAR territory. CTA of neck and head, ECHO all show unremarkable. Patient's slurred speech was resolved, patient's left-sided weakness also improved. PT/OT evaluation in the treated patient, patient was recommended to inpatient rehab. Patient has a high motivation for her recovery from the stroke. Patient will discharge to inpatient facility, [facility]. - ALLERGIES Allergies/Adverse Reactions: Allergies Allergy/AdvReac Type Severity Reaction Status Date / Time Penicillins Allergy Rash Verified 05/02/20 02:57 - MEDICATIONS Home Medications: Ambulatory Orders Medication Instructions Recorded Confirmed ALPRAZolam [Alprazolam] 0.5 mg PO QPM PRN 05/02/20 05/02/20 Albuterol Sulfate [Albuterol 1 inh PO Q4HR PRN 05/02/20 05/02/20 Sulfate Hfa] Amlodipine Besylate 10 mg PO DAILY 05/02/20 05/02/20 Fenofibrate Nanocrystallized 145 mg PO DAILY 05/02/20 05/02/20 [Fenofibrate] Furosemide [Lasix] 20 mg PO DAILY 05/02/20 05/02/20 Losartan Potassium 100 mg PO DAILY 05/02/20 05/02/20 Nadolol [Corgard] 40 mg PO DAILY 05/02/20 05/02/20 Potassium Chloride 10 meq PO DAILY 05/02/20 05/02/20 Aspirin EC [Ecotrin] 81 mg PO DAILY #30 tablet 05/06/20 Atorvastatin [Lipitor] 40 mg PO QPM #30 tablet 05/06/20 - PHYSICAL EXAM AT DISCHARGE General Appearance: positive: No acute distress, Alert. negative: Lethargic Eyes Bilateral: positive: Normal inspection, PERRL, No lid inflammation ENT: positive: ENT inspection nml, No signs of dehydration. negative: Purulent nasal drainage Neck: positive: Nml inspection, Thyroid nml, Trachea midline. negative: Thyromegaly, Stiff neck, Tracheal deviation Respiratory: positive: Chest non-tender, No respiratory distress. negative: Wheezes, Rales, Rhonchi Cardiovascular: positive: Regular rate & rhythm, No murmur. negative: Irregularly irregular, Tachycardia, Bradycardia, Systolic murmur, Diastolic murmur Peripheral Pulses: positive: 2+ Abdomen: positive: Non-tender, Nml bowel sounds, No distention. negative: Tenderness, Guarding, Rebound Back: positive: Nml inspection. negative: CVA tenderness (R), CVA tenderness (L) Skin: positive: Color nml, No rash, Warm, Dry. negative: Cyanosis, Diaphoresis, Pallor Extremities: positive: Non-tender, Nml appearance. negative: Calf tenderness Neurologic/Psychiatric: positive: Oriented x3, Sensation nml, Mood/affect nml, Weakness, Other (left lower extremity weakness and has balance issue). negative: Sensory loss, Facial droop, Slurred/abnml speech, Depressed mood/affect - LABS Result Diagrams: 05/06/20 04:25 05/06/20 04:25 - FOLLOW UP Follow Up: continue PT/OT inpt setting, continue medical management and followup with neurologist as out-pt. - TIME SPENT Time Spent in Discharge (Minutes): 30
[2020-05-06 13:50] VITALS: BP 137/51
== END 2020-05-06 14:02 | disposition short-term general hospital (02) | DRG 69 ==
LOC: EDUNIT# → ED 02:13 → MS3 05:17
PROVIDERS: ADMIT Internal Medicine; ATTEND Nurse Practitioner Gerontology
DX: G45.9 Transient cerebral ischemic attack, unspecified (principal); I67.82 Cerebral ischemia; G81.94 Hemiplegia, unspecified affecting left nondominant side; R47.81 Slurred speech; I10 Essential (primary) hypertension; E11.9 Type 2 diabetes mellitus without complications; E78.5 Hyperlipidemia, unspecified; J44.9 Chronic obstructive pulmonary disease, unspecified; F41.9 Anxiety disorder, unspecified; Z20.828 Contact with and (suspected) exposure to other viral communicable diseases; Z87.891 Personal history of nicotine dependence; Z79.899 Other long term (current) drug therapy
CPT/HCPCS: 36415; 70496; 70498; 70551; 71045; 72170; 80048; 80053; 80061; 81001; 81003; 82550; 83036; 83690; 83735; 83880; 84484; 85025; 85610; 85730; 87086; 92523; 92526; 92610; 93005; 93306; 94640; 96374; 97116; 97162; 97166; 97530; 97535; 99284; 99285; A9270; J2060; Q9967; U0004; 80306; 80320; 83721

== ENCOUNTER 2020-09-14 08:00 | Outpatient (CLI) | payer MEDICARE, BC ==
[2020-09-14 18:17] LABS: BASOPHILS # (AUTO) 0.1 10^3/uL (0.0-0.1); BASOPHILS % (AUTO) 1.5 %; EOSINOPHILS # (AUTO) 0.4 10^3/uL (0.0-0.7); EOSINOPHILS % (AUTO) 4.8 %; HGB - HEMOGLOBIN 12.8 g/dL (12.0-16.0); LYMPHOCYTES # (AUTO) 3.1 10^3/uL (1.5-3.5); LYMPHOCYTES % (AUTO) 36.3 %; MEAN CORPUSCULAR HEMOGLOBIN 29.6 pg (27.0-31.0); MEAN CORPUSCULAR HGB CONC 30.7 g/dL (32.0-36.0); MEAN CORPUSCULAR VOLUME 96.5 fL (81.0-99.0); MEAN PLATELET VOLUME 11.9 fL (7.9-10.8); MONOCYTES # (AUTO) 0.7 10^3/uL (0.0-1.0); MONOCYTES % (AUTO) 8.2 %; NEUTROPHILS # (AUTO) 4.2 10^3/uL (1.5-6.6); NEUTROPHILS % (AUTO) 48.7 %; PLT - PLATELET COUNT 310 10^3/uL (130-450); RED BLOOD COUNT 4.32 10^6/uL (4.20-5.40); RED CELL DISTRIBUTION WIDTH 13.3 % (12.0-15.0); WHITE BLOOD COUNT 8.6 x10^3/uL (4.8-10.8)
[2020-09-14 18:39] LABS: ALBUMIN 3.9 g/dL (3.2-5.5); ALKALINE PHOSPHATASE 50 IU/L (42-121); ALT ALANINE AMINOTRANSFERASE < 10 IU/L (10-60); AST ASPARTATE AMINOTRANSFERASE 21 IU/L (10-42); BILIRUBIN,TOTAL 0.7 mg/dL (0.2-1.0); BUN - BLOOD UREA NITROGEN 17 mg/dL (6-20); CALCIUM 9.2 mg/dL (8.5-10.3); CARBON DIOXIDE - CO2 27 mmol/L (21-32); CHLORIDE 106 mmol/L (101-111); CHOL/HDL RATIO 3.3 (<4.4); CHOLESTEROL 143 mg/dL; CREATININE 0.6 mg/dL (0.4-1.0); GLUCOSE 103 mg/dL (70-100); HDL CHOLESTEROL 43 mg/dL; LDL CHOLESTEROL,CALCULATED 74 mg/dL; LDL/HDL RATIO 1.7 (<4.4); TOTAL PROTEIN 7.9 g/dL (6.7-8.2); VLDL CHOLESTEROL 26 mg/dL
[2020-09-14 20:09] LABS: HEMOGLOBIN A1c% 5.8 % (4.27-6.07)
== END 2020-09-14 23:59 | disposition home or self-care (01) ==
LOC: LAB.WCP 08:00
PROVIDERS: ATTEND Family Medicine
DX: E11.9 Type 2 diabetes mellitus without complications (principal)
CPT/HCPCS: 36415; 80053; 80061; 83036; 83721; 85025

== ENCOUNTER 2022-05-01 07:34 | Outpatient (CLI) | payer MEDICARE, BC | END 2022-05-01 07:35 | disposition home or self-care (01) | LOC: DI 07:34 | PROVIDERS: ATTEND Physician Assistant | DX: I50.9 Heart failure, unspecified (principal); R06.02 Shortness of breath | CPT/HCPCS: 93306 ==

== ENCOUNTER 2022-11-01 11:34 | Outpatient (CLI) | payer MEDICARE, BC | END 2022-11-01 23:59 | disposition short-term general hospital (02) | LOC: EMS 11:34 | DX: R41.0 Disorientation, unspecified (principal); R29.6 Repeated falls; R53.1 Weakness; R06.02 Shortness of breath; R20.0 Anesthesia of skin; R00.1 Bradycardia, unspecified; R06.2 Wheezing | CPT/HCPCS: A0425; A0427 ==

== ENCOUNTER 2022-12-04 08:00 | Outpatient (CLI) | payer MEDICARE, BC | END 2022-12-04 23:59 | disposition home or self-care (01) | LOC: LAB.WCP 08:00 | PROVIDERS: ATTEND Physician Assistant | DX: L03.116 Cellulitis of left lower limb (principal) | CPT/HCPCS: 87070; 87075; 87186 ==

== ENCOUNTER 2022-12-04 15:35 | Outpatient (CLI) | payer MEDICARE, BC ==
--- NOTE | 2022-12-04 17:07 | XRAY Report ---
PROCEDURE: Chest 2 View X-Ray INDICATIONS: CONGESTIVE HEART FAILURE TECHNIQUE: 2 views of the chest were acquired. COMPARISON: Chest x-ray, 05/02/2020. FINDINGS: Surgical changes and devices: None. Lungs and pleura: Small left pleural effusion with left basilar atelectasis. Increased pulmonary vas cularity consistent with pulmonary edema. No pneumothorax. Mediastinum: Mediastinal contours appear normal. Heart size is slightly increased. Bones and chest wall: No suspicious bony lesions. Overlying soft tissues appear unremarkable. IMPRESSION: 1. Congestive heart failure. 2. Small left effusion with left basilar atelectasis. Reviewed by: Diana Lynn MD on 12/04/2022 5:06 PM PDT Approved by: Diana Lynn MD on 12/04/2022 5:06 PM PDT Station ID: [id number]
== END 2022-12-04 15:36 | disposition home or self-care (01) ==
LOC: DI 15:35
PROVIDERS: ATTEND Physician Assistant
DX: I50.9 Heart failure, unspecified (principal); J90 Pleural effusion, not elsewhere classified; J98.11 Atelectasis; L03.116 Cellulitis of left lower limb
CPT/HCPCS: 87070; 87075; 87186

== ENCOUNTER 2023-01-13 05:12 | Outpatient (CLI) | payer MEDICARE, BC | END 2023-01-13 05:13 | disposition critical access hospital (66) | LOC: EMS 05:12 | DX: J45.909 Unspecified asthma, uncomplicated (principal); I48.91 Unspecified atrial fibrillation | CPT/HCPCS: A0425; A0429 ==

== ENCOUNTER 2023-01-13 05:24 | Emergency (ER) | payer MEDICARE, BC ==
[2023-01-13] MEDS ORDERED: IPRATROPIUM/ALBUTEROL 3 ML NEB INH STA ×2 (05:33→06:20)
[2023-01-13] MEDS ORDERED: methylPREDNISolone SUCCINATE 125 MG/2 ML VIAL IVP STA (05:38)
--- NOTE | 2023-01-13 05:38 | ED Physician Documentation ---
History of Present Illness - Stated complaint Stated Complaint: SOA - History obtained from History obtained from: Patient, Family (son) - Additonal information Additional information: 77-year-old woman with pmh seasonal allergies, copd, heart valvular problems, htn, presents from home with acute shortness of breath, brought in by EMS with report Of O2 sat 88% on room air upon their arrival. Patient received 2 nebulizer treatments with resulting oxygen 95% on nasal cannula oxygen. Patient denies fever, cough, hemoptysis. She has had chronic leg swelling that is still present this week. 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 HEENT: Tonsil/Adenoidectomy - Present Medications Home Medications: Ambulatory Orders Medication Instructions Recorded Confirmed ALPRAZolam [Alprazolam] 0.5 mg PO QPM PRN 05/02/20 05/02/20 Albuterol Sulfate [Albuterol 1 inh PO Q4HR PRN 05/02/20 05/02/20 Sulfate Hfa] Amlodipine Besylate 10 mg PO DAILY 05/02/20 05/02/20 Fenofibrate Nanocrystallized 145 mg PO DAILY 05/02/20 05/02/20 [Fenofibrate] Furosemide [Lasix] 20 mg PO DAILY 05/02/20 05/02/20 Losartan Potassium 100 mg PO DAILY 05/02/20 05/02/20 Potassium Chloride 10 meq PO DAILY 05/02/20 05/02/20 nadoloL [Corgard] 40 mg PO DAILY 05/02/20 05/02/20 Aspirin EC [Ecotrin] 81 mg PO DAILY #30 tablet 05/06/20 Atorvastatin [Lipitor] 40 mg PO QPM #30 tablet 05/06/20 Triamcinolone 0.1% Oint 1 applic TOP BID 7 Days #80 gm 12/23/22 - Allergies Allergies/Adverse Reactions: Allergies Allergy/AdvReac Type Severity Reaction Status Date / Time Penicillins Allergy Rash Verified 01/13/23 05:36 - Social History Does the pt smoke?: No Smoking Status: Never smoker Does the pt drink ETOH?: No Does the pt have substance abuse?: No - Immunizations Immunizations are current?: Yes - POLST Patient has POLST: No POLST Status: Full Code PD ED PE NORMAL - Vitals Vital signs reviewed: Yes - General General: Alert and oriented X 3, Well developed/nourished, Other (Mild to moderate respiratory distress) - HEENT HEENT: Atraumatic, PERRL, EOMI, Moist mucous membranes, Pharynx benign - Neck Neck: Supple, no meningeal sign - Cardiac Cardiac: Other (Tachycardic rate, irregular rhythm) - Respiratory Respiratory: Other (Bilateral expiratory wheezing) Results - Vitals Vitals: Vital Signs - 24 hr 01/13/23 01/13/23 01/13/23 05:30 05:31 05:50 Temperature 36.6 C Heart Rate 95 95 91 Respiratory 28 H 28 H 28 H Rate Blood Pressure 139/46 H 100/66 O2 Saturation 93 99 01/13/23 01/13/23 06:00 06:30 Temperature Heart Rate 86 90 Respiratory 28 H 27 H Rate Blood Pressure 108/48 L 121/59 L O2 Saturation 98 92 Oxygen O2 Source Room air - EKG (time done) 0558 EKG releavant findings:: EKG personally interpreted by author of this note. Relevant findings are: Rate: Rate (enter#) (88) - Labs Labs: Laboratory Tests 01/13/23 01/13/23 06:23 06:23 WBC 9.7 RBC 3.45 L Hgb 9.3 L Hct 31.5 L MCV 91.3 MCH 27.0 MCHC 29.5 L RDW 15.3 H Plt Count 356 MPV 10.9 H Neut # (Auto) 5.7 Lymph # (Auto) 2.7 [place] # (Auto) 0.6 Eos # (Auto) 0.6 Baso # (Auto) 0.1 Absolute Nucleated RBC 0.00 Nucleated RBC % 0.0 VBG pH 7.395 VBG pCO2 37.7 L VBG pO2 58.5 H VBG HCO3 22.6 L VBG Total CO2 23.7 L VBG O2 Saturation 90.0 H VBG Base Excess -2.0 PD Medical Decision Making - ED course ED course: 77-year-old woman presents with shortness of breath found to have significant wheezing on exam. Plan to continue treatment with nebulizers and reevaluate. cbc, abdominal panel, vbg ordered. ekg possible MAT versus new onset afib. CXR shows moderate pleural effusion and pneumonia. Patient is allergic to penicillins therefore levofloxacin was ordered for CAP. No beds available so plan to endorse to incoming daytime ED MD at 7am shift change. Departure - Departure Clinical Impression: Pleural effusion, Pneumonia
[2023-01-13] MEDS ORDERED: levoFLOXacin 750 MG/150 ML 750 MG/150 ML BAG IV STA (06:21)
[2023-01-13 06:38] LABS: VBG HCO3 22.6 mmol/L (23-28); VBG PCO2 37.7 mmHg (41-51); VBG PH 7.395 (7.31-7.41); VBG PO2 58.5 mmHg (25-47)
[2023-01-13 06:39] LABS: BASOPHILS # (AUTO) 0.1 10^3/uL (0.0-0.1); BASOPHILS % (AUTO) 1.3 %; EOSINOPHILS # (AUTO) 0.6 10^3/uL (0.0-0.7); EOSINOPHILS % (AUTO) 5.9 %; HCT - HEMATOCRIT 31.5 % (37.0-47.0); HGB - HEMOGLOBIN 9.3 g/dL (12.0-16.0); LYMPHOCYTES # (AUTO) 2.7 10^3/uL (1.5-3.5); LYMPHOCYTES % (AUTO) 27.5 %; MEAN CORPUSCULAR HGB CONC 29.5 g/dL (32.0-36.0); MEAN CORPUSCULAR VOLUME 91.3 fL (81.0-99.0); MEAN PLATELET VOLUME 10.9 fL (7.9-10.8); MONOCYTES # (AUTO) 0.6 10^3/uL (0.0-1.0); MONOCYTES % (AUTO) 6.4 %; NEUTROPHILS # (AUTO) 5.7 10^3/uL (1.5-6.6); NEUTROPHILS % (AUTO) 58.5 %; PLT - PLATELET COUNT 356 10^3/uL (130-450); RED BLOOD COUNT 3.45 10^6/uL (4.20-5.40); RED CELL DISTRIBUTION WIDTH 15.3 % (12.0-15.0); VBG TOTAL CO2 23.7 mmol/L (24-29); WHITE BLOOD COUNT 9.7 x10^3/uL (4.8-10.8)
[2023-01-13 06:54] LABS: ALBUMIN 3.3 g/dL (3.2-5.5); ALBUMIN/GLOBULIN RATIO 0.8 (1.0-2.2); BILIRUBIN,TOTAL 0.6 mg/dL (0.2-1.0); CALCIUM 8.6 mg/dL (8.5-10.3); CREATININE 0.8 mg/dL (0.4-1.0); TOTAL PROTEIN 7.2 g/dL (6.7-8.2)
[2023-01-13] MEDS ORDERED: MORPHINE 2 MG/ML CARPUJECT IVP STA (07:09)
--- NOTE | 2023-01-13 07:10 | ED Physician Documentation ---
ED Addendum - Addendum Addendum: 01/13/23 07:[address] Galvan at 7 AM shift change. Briefly this is a 77-year-old woman who has shortness of breath and wheezing. Chest x-ray showing a pleural effusion on the left and left lower lobe consolidation. She is already received 2 nebulized breathing treatments, IV steroids and is in the midst of receiving IV levofloxacin. On examination she is tachypneic and has labored breathing in short sentences with diffuse wheezing and diminished at the left base. She is complaining of new chest pressure that just started since her second nebulized treatments. We will obtain a third EKG as the chest pressure is new and add on troponin and BNP for concern of cardiac wheezing. We will treat with 2 mg of IV morphine for chest pressure and air hunger. Note made that her EKG does show rate controlled atrial fibrillation without ischemia at least on the 2 prior E KGs, third 1 pending. She does not have a reported history of A-fib. 01/13/23 07:59 Twelve-lead EKG done at 0724 hrs. discloses atrial fibrillation with long QT, no ischemic changes such as ST elevation or depression. In the interim her troponin did come back elevated at 66. At the time of this writing the BNP is still pending. Her son notes she has had a few episodes of left arm twitching which accompany more respiratory distress but no loss of consciousness. I asked him to find me if she has another episode so I could see it. In the interim plan to repeat her troponin after 2 hours to see what the trend is as that may affect disposition, i.e. whether she would be admitted here, or transferred somewhere with availability of cardiology consultation. She certainly does appear more comfortable at this juncture. Nurse notes that she had some room air saturations in the mid 80s and this was prior to 2 mg of morphine being given. 01/13/23 08:33 I was called into the room at this time, her son notes another episode of left arm twitching. This is now the fifth episode. She is actively having tonic- clonic motions of the left upper extremity which she is unable to control and last about a minute. This is worrisome for new onset focal seizure. We will load her with Keppra and send her for a CAT scan of the head. 01/13/23 09:10 She also got a milligram of IV Ativan, since then she had no more episodes of arm shaking. The son notes that she had a stroke in October, treated [facility]. It affected her left arm. Since then has had left arm shaking that is been briefer and less violent than she has had today, so presume she has been having partial focal seizures, but today is worse, potentially because of ongoing medical illness with pneumonia? CT of the head does show 2 areas of encephalomalacia on my independent read, radiology read is pending. 1 area is new compared to prior CT from this facility in April 2020, the new one is on the right, there is an old area that has progressed a bit on the left. Now her troponin has gone up significantly, from 66, up to 203. This is worrisome for NSTEMI. Given this we will plan to load her with aspirin, beta-blockade, statin. We will hold heparinization given the recent stroke and focal seizures. Plan for transfer to facility capable of cardiology Preferably with neurology evaluation. 01/13/23 09:18 Looks like she has been on DAPT since her recent stroke. She has not been anticoagulated fully, but it sounds like today is the first time we have recognized atrial fibrillation. Discharge summary from November 04 of this year from [facility] received and reviewed. It is consistent with the son's interpretation, she had a acute/subacute right MCA infarct with decreased strength in the left hand and c oordination issues in the left side of the body. Diagnosis: 1. Pneumonia 2. Pleural effusion 3. New onset atrial fibrillation 4. CHF 5. Rising troponin with concern for non-STEMI 6. 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 Recent stroke 01/13/23 10:16 At the time of this note I just spoke with Dr. Flynn, cardiology at [facility] who feels she should be heparinized and agrees with transfer up. They will get a hold of the hospitalist. 01/13/23 10:[address] [facility]. Disposition: Transferred to [facility] in [place] for specialty care Condition: Serious Critical care time 40 minutes including direct patient care, consultation, documentation, and review of studies. Does not include EKG interpretation.
[2023-01-13 07:42] LABS: CORONAVIRUS 229E-RESP PCR NOT DETECTED; CORONAVIRUS HKU1-RESP PCR NOT DETECTED; CORONAVIRUS NL63-RESP PCR NOT DETECTED; CORONAVIRUS OC43-RESP PCR NOT DETECTED; HUMAN METAPNEUMOVIRUS NOT DETECTED; INFLUENZA A- RESP PCR PANEL NOT DETECTED; RHINOVIRUS/ENTEROVIRUS NOT DETECTED; SARS-CoV-2 -RESP PCR PANEL NOT DETECTED
[2023-01-13 07:43] LABS: B. PARAPERTUSSIS- RESP PCR PAN NOT DETECTED; B. PERTUSSIS- RESP PCR PANEL NOT DETECTED; C. PNEUMONIAE- RESP PCR PANEL NOT DETECTED; INFLUENZA B - RESP PCR PANEL NOT DETECTED; M. PNEUMONIAE- RESP PCR PANEL NOT DETECTED; PARAINFLUENZA VIRUS 1 NOT DETECTED; PARAINFLUENZA VIRUS 2 NOT DETECTED; PARAINFLUENZA VIRUS 3 NOT DETECTED; PARAINFLUENZA VIRUS 4 NOT DETECTED; RSV- RESP PCR PANEL NOT DETECTED
--- NOTE | 2023-01-13 08:10 | XRAY Report ---
PROCEDURE: Chest 1 View X-Ray INDICATIONS: Chest Pain TECHNIQUE: One view of the chest was acquired. COMPARISON: 12/04/2022. FINDINGS: Surgical changes and devices: None. Lungs and pleura: Interstitial pulmonary edema. Left basilar atelectasis versus consolidation and le ft pleural fluid. Mediastinum: Mediastinal contours appear normal. Cardiomegaly. Bones and chest wall: No suspicious bony lesions. Overlying soft tissues appear unremarkable. IMPRESSION: Congestive heart failure exacerbation. Cannot exclude superimposed left basilar pneumonia. Findings are concordant with preliminary interpretation provided by [facility]. Reviewed by: Josep Oneill MD on 01/13/2023 8:09 AM PDT Approved by: Josep Oneill MD on 01/13/2023 8:09 AM PDT Station ID: [id number]
[2023-01-13] MEDS ORDERED: levETIRAcetam INJ 500 MG in SODIUM CHLORIDE 0.9% 100ML 100 ML IV STA (08:33)
[2023-01-13] MEDS ORDERED: LORazepam 2 MG/ML VIAL IVP STA (08:40)
[2023-01-13] MEDS ORDERED: METOPROLOL TARTRATE 50 MG TABLET PO STA (09:13)
[2023-01-13] MEDS ORDERED: ASPIRIN CHEW 81 MG TABLET PO STA (09:13)
[2023-01-13] MEDS ORDERED: ATORVASTATIN 40 MG TABLET PO STA (09:13)
--- NOTE | 2023-01-13 09:16 | CT Report ---
PROCEDURE: HEAD WO INDICATIONS: new sz TECHNIQUE: Noncontrast 4.5 mm thick angled axial sections acquired from the foramen magnum to the vertex. For r adiation dose reduction, the following was used: automated exposure control, adjustment of mA and/or kV according to patient size. COMPARISON: None. FINDINGS: Image quality: Excellent. CSF spaces: Basal cisterns are patent. No extra-axial fluid collections. Ventricles are normal in size and shape. Brain: No midline shift. No intracranial masses or hemorrhage. Old old focal anterior left frontal MCA distribution infarct with encephalomalacia and gliosis. Old right moderate-sized MCA distribution posterior frontal parietal infarct with encephalomalacia and gliosis. Old focal inferomedial right f rontal deep white matter infarct subjacent to the frontal horn of the right lateral ventricle. Old po sterior inferior temporal infarct on the right. Whitten-white matter interface is normal. Skull and face: Calvarium and visualized facial bones are intact, without suspicious lesions. Sinuses: Visualized sinuses and mastoids are clear. IMPRESSION: 1. Multiple old infarcts. 2. No acute intracranial process. Reviewed by: Josep Oneill MD on 01/13/2023 9:15 AM PDT Approved by: Josep Oneill MD on 01/13/2023 9:15 AM PDT Station ID: [id number]
[2023-01-13] MEDS ORDERED: HEPARIN 25000UNITS/500ML (D5W) 25,000 UNIT/500 ML BAG IV SCH (11:00)
[2023-01-13 11:39] VITALS: BP 115/51
== END 2023-01-13 12:00 | disposition short-term general hospital (02) ==
LOC: EDUNIT# → EDBD → ED 05:24
DX: J18.9 Pneumonia, unspecified organism (principal); J91.8 Pleural effusion in other conditions classified elsewhere; I48.91 Unspecified atrial fibrillation; I11.0 Hypertensive heart disease with heart failure; I50.9 Heart failure, unspecified; R77.8 Other specified abnormalities of plasma proteins; G40.109 Localization-related (focal) (partial) symptomatic epilepsy and epileptic syndromes with simple partial seizures, not intractable, without status epilepticus; E11.9 Type 2 diabetes mellitus without complications; J44.9 Chronic obstructive pulmonary disease, unspecified; E78.00 Pure hypercholesterolemia, unspecified; Z86.73 Personal history of transient ischemic attack (TIA), and cerebral infarction without residual deficits; Z79.82 Long term (current) use of aspirin; Z79.899 Other long term (current) drug therapy
CPT/HCPCS: 36415; 70450; 71045; 80053; 82803; 83690; 83880; 84484; 85025; 87633; 93005; 94640; 94664; 96365; 96366; 96367; 96375; 99285; A9270; J2060

== ENCOUNTER 2023-01-13 11:53 | Outpatient (CLI) | payer MEDICARE, BC | END 2023-01-13 11:54 | disposition short-term general hospital (02) | LOC: EMS 11:53 | PROVIDERS: ATTEND Emergency Medicine | DX: I21.4 Non-ST elevation (NSTEMI) myocardial infarction (principal); I48.91 Unspecified atrial fibrillation | CPT/HCPCS: A0425; A0426 ==

== ENCOUNTER 2023-01-22 15:55 | Outpatient (CLI) | payer MEDICARE, BC ==
[2023-01-22 18:42] LABS: BASOPHILS # (AUTO) 0.2 10^3/uL (0.0-0.1); BASOPHILS % (AUTO) 1.8 %; EOSINOPHILS # (AUTO) 0.6 10^3/uL (0.0-0.7); EOSINOPHILS % (AUTO) 6.2 %; HCT - HEMATOCRIT 39.5 % (37.0-47.0); HGB - HEMOGLOBIN 11.7 g/dL (12.0-16.0); LYMPHOCYTES # (AUTO) 3.8 10^3/uL (1.5-3.5); LYMPHOCYTES % (AUTO) 42.7 %; MEAN CORPUSCULAR HEMOGLOBIN 26.8 pg (27.0-31.0); MEAN CORPUSCULAR HGB CONC 29.6 g/dL (32.0-36.0); MEAN CORPUSCULAR VOLUME 90.4 fL (81.0-99.0); MEAN PLATELET VOLUME 12.3 fL (7.9-10.8); MONOCYTES % (AUTO) 11.1 %; NEUTROPHILS # (AUTO) 3.3 10^3/uL (1.5-6.6); NEUTROPHILS % (AUTO) 37.1 %; PLT - PLATELET COUNT 413 10^3/uL (130-450); RED BLOOD COUNT 4.37 10^6/uL (4.20-5.40); WHITE BLOOD COUNT 8.8 x10^3/uL (4.8-10.8)
[2023-01-22 19:14] LABS: ALBUMIN 3.7 g/dL (3.2-5.5); ALBUMIN/GLOBULIN RATIO 0.8 (1.0-2.2); BILIRUBIN,TOTAL 0.5 mg/dL (0.2-1.0); CALCIUM 9.3 mg/dL (8.5-10.3); CREATININE 1.2 mg/dL (0.4-1.0); POTASSIUM 4.5 mmol/L (3.5-5.0); TOTAL PROTEIN 8.2 g/dL (6.7-8.2)
[2023-01-23 12:58] LABS: ESTIMATED AVERAGE GLUCOSE 120 mg/dL (70-100); HEMOGLOBIN A1c% 5.8 % (4.27-6.07)
== END 2023-01-22 15:56 | disposition home or self-care (01) ==
LOC: LAB.N 15:55
PROVIDERS: ATTEND Physician Assistant
DX: I50.9 Heart failure, unspecified (principal); R06.02 Shortness of breath; R60.0 Localized edema; R73.01 Impaired fasting glucose
CPT/HCPCS: 36415; 80053; 83036; 85025

== ENCOUNTER 2023-08-26 15:03 | Outpatient (CLI) | payer MEDICARE, BC ==
[2023-08-26 17:47] LABS: BASOPHILS # (AUTO) 0.2 10^3/uL (0.0-0.1); BASOPHILS % (AUTO) 1.6 %; EOSINOPHILS # (AUTO) 0.8 10^3/uL (0.0-0.7); EOSINOPHILS % (AUTO) 7.8 %; HCT - HEMATOCRIT 45.8 % (37.0-47.0); HGB - HEMOGLOBIN 13.8 g/dL (12.0-16.0); LYMPHOCYTES # (AUTO) 3.4 10^3/uL (1.5-3.5); LYMPHOCYTES % (AUTO) 33.6 %; MEAN CORPUSCULAR HEMOGLOBIN 27.8 pg (27.0-31.0); MEAN CORPUSCULAR HGB CONC 30.1 g/dL (32.0-36.0); MEAN CORPUSCULAR VOLUME 92.2 fL (81.0-99.0); MEAN PLATELET VOLUME 13.1 fL (7.9-10.8); MONOCYTES % (AUTO) 10.1 %; NEUTROPHILS # (AUTO) 4.6 10^3/uL (1.5-6.6); NEUTROPHILS % (AUTO) 45.5 %; PLT - PLATELET COUNT 282 10^3/uL (130-450); RED BLOOD COUNT 4.97 10^6/uL (4.20-5.40); RED CELL DISTRIBUTION WIDTH 15.6 % (12.0-15.0); WHITE BLOOD COUNT 10.2 x10^3/uL (4.8-10.8)
[2023-08-26 17:57] LABS: ALBUMIN 4.1 g/dL (3.2-5.5); ALKALINE PHOSPHATASE 74 IU/L (42-121); ALT ALANINE AMINOTRANSFERASE 9 IU/L (10-60); AST ASPARTATE AMINOTRANSFERASE 25 IU/L (10-42); BILIRUBIN,TOTAL 0.5 mg/dL (0.2-1.0); BUN - BLOOD UREA NITROGEN 24 mg/dL (6-20); CALCIUM 9.4 mg/dL (8.5-10.3); CARBON DIOXIDE - CO2 29 mmol/L (21-32); CHLORIDE 106 mmol/L (101-111); CHOLESTEROL 122 mg/dL; CREATININE 0.8 mg/dL (0.6-1.3); GFR - MDRD 69 (>89); GLUCOSE 92 mg/dL (74-104); HDL CHOLESTEROL 41 mg/dL; LDL CHOLESTEROL,CALCULATED 49 mg/dL; LDL/HDL RATIO 1.2 (<4.4); POTASSIUM 4.2 mmol/L (3.5-4.5); SODIUM 142 mmol/L (135-145); TOTAL PROTEIN 8.4 g/dL (6.4-8.9); TRIGLYCERIDES 161 mg/dL (48-352); VLDL CHOLESTEROL 32 mg/dL
[2023-08-26 18:12] LABS: THYROID STIMULATING HORMONE 1.49 uIU/mL (0.34-5.60)
[2023-08-26 23:10] LABS: ESTIMATED AVERAGE GLUCOSE 126 mg/dL (70-100)
== END 2023-08-26 15:04 | disposition home or self-care (01) ==
LOC: LAB.N 15:03
PROVIDERS: ATTEND Physician Assistant
DX: I25.10 Atherosclerotic heart disease of native coronary artery without angina pectoris (principal); E78.5 Hyperlipidemia, unspecified; R73.03 Prediabetes; I10 Essential (primary) hypertension
CPT/HCPCS: 36415; 80053; 80061; 83036; 83721; 84443; 85025

== ENCOUNTER 2024-02-19 00:23 | Outpatient (CLI) | payer MEDICARE, BC | END 2024-02-19 23:59 | disposition critical access hospital (66) | LOC: EMS 00:23 | DX: R29.6 Repeated falls (principal); R51.9 Headache, unspecified; Z79.01 Long term (current) use of anticoagulants | CPT/HCPCS: A0425; A0427 ==

== ENCOUNTER 2024-02-19 00:42 | Emergency (ER) | payer MEDICARE, BC ==
[2024-02-19] MEDS ORDERED: iohexoL-300 100 ML VIAL ONE (00:52)
--- NOTE | 2024-02-19 00:52 | ED Physician Documentation ---
History of Present Illness - Stated complaint Stated Complaint: GLF - History obtained from History obtained from: EMS - Additonal information Additional information: 78yF, greenlandic speaking with some ugandan, afib on eliquis, p/w fall from standing tonight at midnight without head injury, in addition to fall yesterday morning, hitting head with loss of consciousness. Modified trauma called in the field. 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: Tubal ligation HEENT: Tonsil/Adenoidectomy - Present Medications Home Medications: Ambulatory Orders Medication Instructions Recorded Confirmed Albuterol Sulfate [Albuterol 1 inh PO Q4HR PRN 05/02/20 01/13/23 Sulfate Hfa] Amlodipine Besylate 15 mg PO DAILY 05/02/20 01/13/23 Fenofibrate Nanocrystallized 145 mg PO DAILY 05/02/20 01/13/23 [Fenofibrate] Furosemide [Lasix] 20 mg PO DAILY 05/02/20 01/13/23 Losartan Potassium 100 mg PO DAILY 05/02/20 01/13/23 Potassium Chloride 10 meq PO DAILY 05/02/20 05/02/20 nadoloL [Corgard] 40 mg PO DAILY 05/02/20 01/13/23 Aspirin EC [Ecotrin] 81 mg PO DAILY #30 tablet 05/06/20 01/13/23 Atorvastatin [Lipitor] 40 mg PO QPM #30 tablet 05/06/20 01/13/23 Clopidogrel [Plavix] 75 mg PO DAILY 01/13/23 01/13/23 FLUoxetine [PROzac] 10 mg PO DAILY 01/13/23 01/13/23 Mirtazapine 7.5 mg PO HS PRN 01/13/23 01/13/23 Spironolactone [Aldactone] 12.5 mg PO DAILY 01/13/23 01/13/23 Tiotropium [place] [Spiriva 1 puffs IH DAILY 01/13/23 01/13/23 Handihaler] cloNIDine HCL [Clonidine HCl ER] 0.1 mg PO BID 01/13/23 01/13/23 - Allergies Allergies/Adverse Reactions: Allergies Allergy/AdvReac Type Severity Reaction Status Date / Time Penicillins Allergy Rash Verified 02/19/24 00:53 - Social History Does the pt smoke?: No Smoking Status: Former smoker Does the pt drink ETOH?: No Does the pt have substance abuse?: No - Immunizations Immunizations are current?: Yes - POLST Patient has POLST: No POLST Status: Full Code PD ED PE NORMAL - Vitals Vital signs reviewed: Yes - General General: No acute distress, Well developed/nourished, Other (AOX2 (person, place)) - HEENT HEENT: Atraumatic, PERRL, EOMI, Moist mucous membranes, Pharynx benign - Neck Neck: No bony TTP - Cardiac Cardiac: RRR - Respiratory Respiratory: No respiratory distress, Clear bilaterally - Abdomen Abdomen: Non tender, Non distended - Back Back: No spinal TTP - Derm Derm: Normal color, Warm and dry - Extremities Extremities: No deformity, No tenderness to palpate, Normal ROM s pain, Other (Chronic appearing skin abrasion to R anterior leg. 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 2-12 intact, No motor deficit, No sensory deficit, Normal speech Eye Opening: Spontaneous Motor: Obeys Commands Verbal: Confused GCS Score: 14 Results - Vitals Vitals: Vital Signs - 24 hr 02/19/24 00:53 Temperature 37.2 C Heart Rate 70 Respiratory 16 Rate Blood Pressure 140/70 H O2 Saturation 98 Oxygen O2 Source Room air - Labs Labs: Laboratory Tests 02/19/24 02/19/24 02/19/24 00:50 00:50 00:50 WBC 15.4 H RBC 4.32 Hgb 12.7 Hct 39.5 MCV 91.4 MCH 29.4 MCHC 32.2 RDW 14.8 Plt Count 316 MPV 11.5 H Neut # (Auto) Not Reportable Lymph # (Auto) Not Reportable Geary # (Auto) Not Reportable Eos # (Auto) Not Reportable Baso # (Auto) Not Reportable Absolute Nucleated RBC Not Reportable Total Counted 100 Band Neuts % (Manual) 0 Abnorm Lymph % (Manual) 0 Nucleated RBC % Not Reportable Neutrophils # (Manual) 12.5 H Lymphocytes # (Manual) 1.7 Monocytes # (Manual) 0.9 Eosinophils # (Manual) 0.0 Basophils # (Manual) 0.3 H Differential Comment MANUAL DIFFERENTIAL Platelet Estimate NORMAL (130-450,000) RBC Morph Micro Appear NORMAL APPEARANCE PT 25.5 H INR 2.5 H APTT 33.3 Sodium 139 Potassium 4.2 Chloride 107 Carbon Dioxide 24 Anion Gap 8.0 BUN 15 Creatinine 0.8 Estimated GFR (MDRD) 69 L Glucose 148 H Calcium 9.8 Total Bilirubin 0.9 AST 15 ALT 6 L Alkaline Phosphatase 51 Total Protein 8.0 Albumin 3.8 Globulin 4.2 Albumin/Globulin Ratio 0.9 L Lipase 14 Ethyl Alcohol < 10.0 Blood Type Blood Type Recheck Antibody Screen 02/19/24 02/19/24 01:00 01:14 WBC RBC Hgb Hct MCV MCH MCHC RDW Plt Count MPV Neut # (Auto) Lymph # (Auto) Geary # (Auto) Eos # (Auto) Baso # (Auto) Absolute Nucleated RBC Total Counted Band Neuts % (Manual) Abnorm Lymph % (Manual) Nucleated RBC % Neutrophils # (Manual) Lymphocytes # (Manual) Monocytes # (Manual) Eosinophils # (Manual) Basophils # (Manual) Differential Comment Platelet Estimate RBC Morph Micro Appear PT INR APTT Sodium Potassium Chloride Carbon Dioxide Anion Gap BUN Creatinine Estimated GFR (MDRD) Glucose Calcium Total Bilirubin AST ALT Alkaline Phosphatase Total Protein Albumin Globulin Albumin/Globulin Ratio Lipase Ethyl Alcohol Blood Type O POSITIVE Blood Type Recheck O POSITIVE Antibody Screen NEGATIVE PD Medical Decision Making - ED course ED course: 78yF on holden presents as modified trauma s/p fall from standing X 2 in the past 48 hours with HT and loss of consciousness yesterday. Patient unable to tolerate c collar therefore a soft collar placed by ems was left in place. Plan to obtain panscan, labs, and reevaluate. IVF ordered. 2:30am- L SA[facility] on ct[facility] - Dr. Yip accepted for ED-ED transfer via helicopter. Departure - Departure Disposition: 02 Transfer Acute Care Hosp Clinical Impression: Fall from standing, Head injury, Loss of consciousness, Pleural effusion, Subarachnoid bleed, Subdural bleeding Condition: Serious Instructions: ED Head Injury Closed
[2024-02-19 01:04] LABS: BASOPHILS % (AUTO) 0.7 %; EOSINOPHILS % (AUTO) 1.3 %
[2024-02-19 01:10] LABS: HCT - HEMATOCRIT 39.5 % (37.0-47.0); HGB - HEMOGLOBIN 12.7 g/dL (12.0-16.0); MEAN CORPUSCULAR HEMOGLOBIN 29.4 pg (27.0-31.0); MEAN CORPUSCULAR HGB CONC 32.2 g/dL (32.0-36.0); MEAN CORPUSCULAR VOLUME 91.4 fL (81.0-99.0); MEAN PLATELET VOLUME 11.5 fL (7.9-10.8); MONOCYTES % (AUTO) 10.2 %; NEUTROPHILS % (AUTO) 73.4 %; PLT - PLATELET COUNT 316 10^3/uL (130-450); RED BLOOD COUNT 4.32 10^6/uL (4.20-5.40); RED CELL DISTRIBUTION WIDTH 14.8 % (12.0-15.0); WHITE BLOOD COUNT 15.4 x10^3/uL (4.8-10.8)
[2024-02-19] MEDS: SODIUM CHLORIDE 0.9% 1,000 ML IV STA (01:10)
[2024-02-19 01:12] LABS: ABNORMAL LYMPHS % (MANUAL) 0 %; BAND NEUTROPHILS % (MANUAL) 0 %
[2024-02-19 01:20] LABS: ALBUMIN 3.8 g/dL (3.2-5.5); ALBUMIN/GLOBULIN RATIO 0.9 (1.0-2.2); ALKALINE PHOSPHATASE 51 IU/L (42-121); ALT ALANINE AMINOTRANSFERASE 6 IU/L (10-60); AST ASPARTATE AMINOTRANSFERASE 15 IU/L (10-42); BILIRUBIN,TOTAL 0.9 mg/dL (0.2-1.0); BUN - BLOOD UREA NITROGEN 15 mg/dL (6-20); CALCIUM 9.8 mg/dL (8.5-10.3); CARBON DIOXIDE - CO2 24 mmol/L (21-32); CHLORIDE 107 mmol/L (101-111); CREATININE 0.8 mg/dL (0.6-1.3); ETOH - ETHANOL < 10.0 mg/dL; GFR - MDRD 69 (>89); GLUCOSE 148 mg/dL (74-104); LIPASE 14 U/L (11-82); POTASSIUM 4.2 mmol/L (3.5-4.5); SODIUM 139 mmol/L (135-145)
[2024-02-19 01:24] LABS: PARTIAL THROMBOPLASTIN TIME 33.3 secs (24.9-33.3)
[2024-02-19 01:28] LABS: INR 2.5 (0.8-1.2); PT - PROTHROMBIN TIME 25.5 secs (9.9-12.6)
[2024-02-19 01:40] LABS: BASOPHILS # (MANUAL) 0.3 10^3/uL (0-0.1); BASOPHILS % (MANUAL) 2 %; DIFFERENTIAL COMMENT MANUAL DIFFERENTIAL; LYMPHOCYTES # (MANUAL) 1.7 10^3/uL (1.5-3.5); LYMPHOCYTES % (MANUAL) 11 %; MONOCYTES # (MANUAL) 0.9 10^3/uL (0.0-1.0); NEUTROPHILS # (MANUAL) 12.5 10^3/uL (1.5-6.6); PLATELET ESTIMATE, MANUAL NORMAL (130-450,000) (NORMAL); RBC MORPHOLOGY (MULTIPLE) NORMAL APPEARANCE (NORMAL)
[2024-02-19] MEDS: iohexoL-300 100 ML VIAL IVP ONE (02:08)
[2024-02-19 03:16] VITALS: BP 118/46; O2SAT 90
[2024-02-19] MEDS: HYDROmorphone 0.5 MG/0.5 ML SYRINGE IVP STA (03:36)
[2024-02-19] MEDS: PROTHROMBIN COMPLEX CONC 500 UNIT VIAL IVP STA (03:59)
--- NOTE | 2024-02-19 08:23 | CT Report ---
PROCEDURE: Head WO INDICATIONS: Head trauma, coagulopathy TECHNIQUE: Noncontrast 4.5 mm thick angled axial sections acquired from the foramen magnum to the vertex. For r adiation dose reduction, the following was used: automated exposure control, adjustment of mA and/or kV according to patient size. COMPARISON: 01/13/2023, 05/02/2020. Correlation is also made with the accompanying imaging. FINDINGS: Image quality: Excellent. CSF spaces: Basal cisterns are patent. Ventricles are normal in size and shape. Brain: There is acute subdural hemorrhage seen, which is largely along the left aspect of the falx, with a maximum thickness of 11 mm. There is also a small amount of hemorrhage also seen layering anna g the left tentorium. Additionally, a small volume of subdural hemorrhage is seen superior to both ce rebral hemispheres. No significant mass effect can be seen. A minimal amount of subarachnoid hemorrha ge can be seen involving the left frontal lobe superiorly. No midline shift. No intracranial masses. Whitten-white matter interface is normal. Age-appropriate b rain parenchymal volume loss and chronic small vessel ischemic change can be seen. Multiple sites of remote infarction can be seen. Skull and face: Calvarium and visualized facial bones are intact, without suspicious lesions. Hyper ostosis frontalis is incidentally noted, which is not frankly abnormal for a female patient of this a ge. Sinuses: Visualized sinuses and mastoids are clear. IMPRESSION: A moderate volume of acute subdural hemorrhage can be seen, with which is largely along the left aspe ct of the tentorium. Scattered remote infarcts are seen. Note: No significant discrepancy from the preliminary report. Reviewed by: Carlitos Armstrong MD on 02/19/2024 7:22 AM MALATHI Approved by: Carlitos Armstrong MD on 02/19/2024 7:22 AM MALATHI Station ID: [id number]
--- NOTE | 2024-02-19 08:25 | CT Report ---
PROCEDURE: Abdomen/Pelvis W INDICATIONS: Abdominal trauma, blunt CONTRAST: Omni 300, 100mls TECHNIQUE: After the administration of intravenous contrast, a CT scan of the abdomen and pelvis was performed. Images were recorded and evaluated at appropriate window settings. Reformats: coronal and sagittal. F or radiation dose reduction, the following was used: automated exposure control, adjustment of mA and /or kV according to patient size. COMPARISON: Correlation is made with the accompanying imaging. FINDINGS: Image quality: Diagnostic. Lower chest: There is a small right-sided pleural effusion. Liver: No solid mass. Gallbladder: Within normal limits. Biliary tree: No intrahepatic or extrahepatic dilation, accounting for age. Spleen: No splenomegaly. Pancreas: No pancreatic ductal dilation. Adrenals: No adrenal nodule. Kidneys and ureters: No hydronephrosis. No renal cystic lesion which requires follow up. No solid mas s. Stomach, bowel and peritoneum: No gastric or small bowel dilation. No abnormal wall thickening. No pa thologic free fluid. Lymph nodes: No central or retroperitoneal adenopathy. Vessels: No infrarenal aortic aneurysm. Patent portal vein. Atherosclerotic calcification is seen. PELVIS Reproductive organs: The uterus demonstrates an unremarkable appearance for age. No adnexal masses ar e seen. Bladder: No abnormal wall thickening, accounting for underdistention. Pelvic lymph nodes: No pelvic adenopathy by size criteria. Bones: No aggressive osseous abnormality. No displaced fracture is seen. There is focal degenerative change seen involving the lumbar spine, with milder degenerative changes seen elsewhere. Mild levocon vex scoliotic curvature is seen. Other: No significant ventral or inguinal hernia. IMPRESSION: There is a small right-sided pleural effusion. No significant acute posttraumatic abnormality is seen. Note: No significant discrepancy from the preliminary report. Reviewed by: Carlitos Armstrong MD on 02/19/2024 7:24 AM MALATHI Approved by: Carlitos Armstrong MD on 02/19/2024 7:24 AM COVALERY Station ID: [id number]
--- NOTE | 2024-02-19 08:28 | CT Report ---
PROCEDURE: Chest W INDICATIONS: Chest trauma, blunt, high energy CONTRAST: Omni 300, 100mls TECHNIQUE: After the administration of intravenous contrast, a CT scan of the chest was performed. Images were recorded and evaluated at appropriate window settings. Reformats: axial MIP of the chest, coronal and sagittal. For radiation dose reduction, the following was used: automated exposure control, adjustme nt of mA and/or kV according to patient size. COMPARISON: Correlation is made with the accompanying imaging. Correlation is also made with prior c hest radiograph, 01/13/2023 FINDINGS: Image quality: Diagnostic. Chest wall and lower neck: Generalized heterogeneity can be seen of the thyroid, it without a clinica lly suspicious nodule. No breast mass. No axillary or supraclavicular adenopathy by size. Lungs and pleura: No consolidation. Pneumothorax is seen. There is a small right-sided pleural effusi on. Mild dependent atelectasis can be seen on both sides. No suspicious pulmonary nodules which requi re follow up. Mediastinum: Heart size is normal. No pericardial effusion. No large vessel abnormality. No mediastin al adenopathy by size criteria. Bones: No aggressive osseous abnormality. Remote, healed right-sided rib fractures are seen. There is accentuated thoracic kyphosis. Age-appropriate degenerative changes are seen. Mild dextroconvex sc oliotic curvature is seen. Upper Abdomen: Unremarkable. IMPRESSION: No significant acute post rheumatic abnormality is seen. No acute fractures or significant hematomas are seen. No acute aortic pathology is seen. There is a small right-sided pleural effusion. Additional findings: Remote right-sided rib fractures Note: No significant discrepancy from the preliminary report. Reviewed by: Carlitos Armstrong MD on 02/19/2024 7:27 AM MALATHI Approved by: Carlitos Armstrong MD on 02/19/2024 7:27 AM MALATHI Station ID: [id number]
--- NOTE | 2024-02-19 08:30 | CT Report ---
PROCEDURE: Cervical Spine WO INDICATIONS: Neck trauma, midline tenderness TECHNIQUE: Noncontrast 3 mm thick sections acquired from the skull base to the T4 level. Sagittal and coronal r eformats were then constructed. For radiation dose reduction, the following was used: automated exp osure control, adjustment of mA and/or kV according to patient size. COMPARISON: Correlation is made with the accompanying imaging. FINDINGS: Image quality: Excellent. Bones: No fractures or dislocations. Visualized superior ribs are intact. Focal degenerative change can be seen involving the C1-C2 interface anteriorly. There is at least mod erate disc space narrowing seen at C6-C7, with associated endplate irregularity and sclerosis. Milder degenerative changes are seen elsewhere. Soft tissues: Prevertebral soft tissues are normal in thickness. No paravertebral hematomas. No ap ical pneumothoraces. A small right-sided pleural effusion is partially seen. Generalized heterogenei ty can be seen of the thyroid. IMPRESSION: Negative for acute fracture. Note: No significant discrepancy from the preliminary report. Reviewed by: Carlitos Armstrong MD on 02/19/2024 7:28 AM MALATHI Approved by: Carlitos Armstrong MD on 02/19/2024 7:28 AM MALATHI Station ID: [id number]
== END 2024-02-19 04:10 | disposition short-term general hospital (02) ==
LOC: EDUNIT# → ED 00:42
DX: S06.6X9A Traumatic subarachnoid hemorrhage with loss of consciousness of unspecified duration, initial encounter (principal); S06.5X9A Traumatic subdural hemorrhage with loss of consciousness of unspecified duration, initial encounter; R40.2412 Glasgow coma scale score 13-15, at arrival to emergency department; W18.30XA Fall on same level, unspecified, initial encounter; I10 Essential (primary) hypertension; J90 Pleural effusion, not elsewhere classified; I48.91 Unspecified atrial fibrillation; Z79.01 Long term (current) use of anticoagulants; Z87.891 Personal history of nicotine dependence
CPT/HCPCS: 36415; 70450; 71260; 72125; 74177; 80053; 83690; 85025; 85610; 85730; 86850; 86900; 86901; 96374; 96375; 99285; G0480; J1170; J7168; Q9967; 80306; 81001; 81003; 82077; 87086

== ENCOUNTER 2024-03-01 17:23 | Outpatient (CLI) | payer MEDICARE, BC | END 2024-03-01 23:59 | disposition critical access hospital (66) | LOC: EMS 17:23 | DX: R53.1 Weakness (principal); R29.810 Facial weakness; R41.0 Disorientation, unspecified; R47.9 Unspecified speech disturbances; I10 Essential (primary) hypertension | CPT/HCPCS: A0425; A0429 ==

== ENCOUNTER 2024-03-01 17:38 | Inpatient (IN) | payer MEDICARE, BC ==
[2024-03-01] MEDS ORDERED: iohexoL-300 100 ML VIAL ONE (17:50)
[2024-03-01 17:56] LABS: BASOPHILS # (AUTO) 0.1 10^3/uL (0.0-0.1); BASOPHILS % (AUTO) 1.2 %; EOSINOPHILS # (AUTO) 0.4 10^3/uL (0.0-0.7); EOSINOPHILS % (AUTO) 3.5 %; HCT - HEMATOCRIT 42.8 % (37.0-47.0); HGB - HEMOGLOBIN 13.4 g/dL (12.0-16.0); LYMPHOCYTES # (AUTO) 3.4 10^3/uL (1.5-3.5); LYMPHOCYTES % (AUTO) 28.2 %; MEAN CORPUSCULAR HEMOGLOBIN 28.2 pg (27.0-31.0); MEAN CORPUSCULAR HGB CONC 31.3 g/dL (32.0-36.0); MEAN CORPUSCULAR VOLUME 89.9 fL (81.0-99.0); MEAN PLATELET VOLUME 10.4 fL (7.9-10.8); MONOCYTES % (AUTO) 8.2 %; NEUTROPHILS # (AUTO) 7.1 10^3/uL (1.5-6.6); NEUTROPHILS % (AUTO) 58.3 %; PLT - PLATELET COUNT 614 10^3/uL (130-450); RED BLOOD COUNT 4.76 10^6/uL (4.20-5.40); RED CELL DISTRIBUTION WIDTH 14.4 % (12.0-15.0); WHITE BLOOD COUNT 12.1 x10^3/uL (4.8-10.8)
--- NOTE | 2024-03-01 17:59 | ED Physician Documentation ---
PD HPI FOCAL NEURO - Stated complaint Stated Complaint: FALL/HEADACHE - Chief complaint Chief Complaint: Neuro - History obtained from History obtained from: Patient, Family, EMS - History of Present Illness Timing - details: Other (unknown) Severity of deficit: Moderate Weakness: Face, Right Numbness: No: Face, Arm, Hand, Leg, Foot, Right, Left Associated symptoms: No: Headache, Nausea / vomiting, Seizure, Syncope, Fall, Head injury, Chest pain, Neck pain, Back pain, Fever Contributing factors: positive: Anticoagulated, Atrial fibrillation Baseline status: positive: A&OX3, ambulatory, indep - Additional information Additional information: Patient is an 78-year-old female who presents to the emergency department reportedly stating that she had right-sided facial droop this afternoon. Her last known normal was 1030 this morning. EMS states that they did note a right sided facial droop upon their arrival, but everything appears to have resolved now. She did have a fall about 2 weeks ago, had a subdural hemorrhage and was flown to [facility]. There she was seen by neurosurgery and cardiology. And it appears that she was recommended to restart her Eliquis on 02/24/2024. When her son arrived to the emergency department, he confirmed that she had a right-sided facial droop, right-sided weakness. He states her usual weakness is in her left arm and left leg. He states that she had expressive aphasia at that time as well. He confirms that she is back to her baseline now. Review of Systems Constitutional: denies: Fever, Chills Throat: denies: Sore throat Cardiac: denies: Chest pain / pressure, Palpitations Respiratory: denies: Dyspnea, Cough GI: denies: Vomiting, Diarrhea Skin: denies: Rash Musculoskeletal: denies: Neck pain, Back pain Neurologic: denies: Focal weakness, Numbness, Confused PD PAST MEDICAL HISTORY - Past Medical History Past Medical History: Yes Cardiovascular: Hypertension, High cholesterol, Valve disorder Respiratory: COPD Neuro: CVA, TIA, Other Endocrine/Autoimmune: Type 2 diabetes GI: None HEENT: None Psych: Depression, Anxiety Derm: None - Past Surgical History Past Surgical History: Yes 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 HEENT: Tonsil/Adenoidectomy - Present Medications Home Medications: Ambulatory Orders Medication Instructions Recorded Confirmed Furosemide [Lasix] 20 mg PO DAILY 05/02/20 02/19/24 Aspirin EC [Ecotrin] 81 mg PO DAILY #30 tablet 05/06/20 02/19/24 Mirtazapine 15 mg PO HS 01/13/23 02/19/24 Spironolactone [Aldactone] 12.5 mg PO QPM 01/13/23 02/19/24 Albuterol Sulfate [Proair 90 mcg IH Q4HR PRN 02/19/24 02/19/24 Digihaler] Apixaban [Eliquis] 5 mg PO BID 02/19/24 02/19/24 Atorvastatin Calcium [Lipitor] 80 mg PO HS 02/19/24 02/19/24 Fenofibrate 160 mg PO DAILY 02/19/24 02/19/24 Fluticasone/Umeclidin/Vilanter 1 puffs INH DAILY 02/19/24 02/19/24 [Trelegy Ellipta 100-62.5-25] Magnesium See Rx Instructions .ROUTE .COMPLEX 02/19/24 02/19/24 Magnesium Oxide [Magnesium] 400 mg PO QPM 02/19/24 02/19/24 Metoprolol Tartrate [Lopressor] 12.5 mg PO BID 02/19/24 02/19/24 amLODIPine [Norvasc] 5 mg PO QPM 02/19/24 02/19/24 - Allergies Allergies/Adverse Reactions: Allergies Allergy/AdvReac Type Severity Reaction Status Date / Time Penicillins Allergy Rash Verified 03/01/24 17:44 - Social History Does the pt smoke?: No Smoking Status: Never smoker Does the pt drink ETOH?: No Does the pt have substance abuse?: No - Immunizations Immunizations are current?: Yes - POLST Patient has POLST: No POLST Status: Full Code PD ED PE NORMAL - Vitals Vital signs reviewed: Yes - General General: Alert and oriented X 3, No acute distress, Well developed/nourished - HEENT HEENT: Atraumatic, PERRL, Moist mucous membranes - Neck Neck: Supple, no meningeal sign - Cardiac Cardiac: RRR, Strong equal pulses - Respiratory Respiratory: No respiratory distress, Clear bilaterally - Abdomen Abdomen: Soft, Non tender, Non distended - Derm Derm: Warm and dry - Extremities Extremities: No edema, No calf tenderness / cord - Neuro Neuro: Alert and oriented X 3, No sensory deficit, Normal speech, Other (Mild left-sided weakness, chronic and unchanged.) Eye Opening: Spontaneous Motor: Obeys Commands Verbal: Oriented GCS Score: 15 - Psych Psych: Normal mood, Normal affect NIHSS - Time Time: 17:50 - Level of Consciousness Level of consciousness: (0) Alert, Keenly responsive LOC Questions: (0) Answers both Q's correct LOC Commands: (0) Performs both correctly - Gaze Best Gaze: (0) Normal - Visual Visual: (0) No loss - Facial Palsy Facial Palsy: (0) Normal, symmetrical movement - Motor Arms (both separate) Motor Arm (right): (0) No drift Motor Arm (left): (0) No drift - Motor Legs (both separate) Motor Leg (right): (0) No drift Motor Leg (left): (0) No drift - Limb Ataxia Limb Ataxia: (0) Absent - Sensory Sensory: (0) Normal - Best Language Best Language: (0) No aphasia - Dysarthria Dysarthria: (0) Normal - Extinction and Inattention (formally neg Extinction and inattention: (0) No abnormality - Total Score/Results Total Score/Result: 0 Results - Vitals Vitals: Vital Signs - 24 hr 03/01/24 03/01/24 03/01/24 17:44 17:47 18:17 Temperature 36.5 C Heart Rate 85 63 68 Respiratory 15 18 25 H Rate Blood Pressure 127/90 H 146/66 H 132/72 H O2 Saturation 96 99 99 03/01/24 19:14 Temperature Heart Rate 82 Respiratory 26 H Rate Blood Pressure 128/66 O2 Saturation 97 Oxygen O2 Source Room air - EKG (time done) 1821 EKG releavant findings:: EKG personally interpreted by author of this note. Relevant findings are: Rate: Rate (enter#) (66) Rhythm: Atrial fibrillation Dexter: Normal QRS: Normal Ischemia: Non specific changes - Labs Labs: Laboratory Tests 03/01/24 03/01/24 17:47 17:47 WBC 12.1 H RBC 4.76 Hgb 13.4 Hct 42.8 MCV 89.9 MCH 28.2 MCHC 31.3 L RDW 14.4 Plt Count 614 H MPV 10.4 Neut # (Auto) 7.1 H Lymph # (Auto) 3.4 [place] # (Auto) 1.0 Eos # (Auto) 0.4 Baso # (Auto) 0.1 Absolute Nucleated RBC 0.00 Nucleated RBC % 0.0 Sodium 138 Potassium 4.1 Chloride 103 Carbon Dioxide 27 Anion Gap 8.0 BUN 18 Creatinine 0.8 Estimated GFR (MDRD) 69 L Glucose 107 H Calcium 10.2 Total Bilirubin 0.4 AST 20 ALT 9 L Alkaline Phosphatase 93 Total Protein 8.1 Albumin 3.7 Globulin 4.4 H Albumin/Globulin Ratio 0.8 L Lipase 22 - Rads (name of study) Head CT Relevant Findings:: Final report received, See rad report CT angiogram head and neck Relevant Findings:: Final report received, See rad report PD Medical Decision Making - ED course Complexity details: reviewed old records, reviewed results, re-evaluated patient, considered differential, d/w patient, d/w licensed tax consultant ED course: Patient symptoms fully resolved in the emergency department. No acute findings on head CT or CT angiogram of the head and neck. Subdural hemorrhage appears to be evolving and resolving. No evidence of acute hemorrhage. Discussed the case with teleneurology, recommend MRI in the morning, neurochecks overnight. They do not recommend changing any of her medications. Continue the Eliquis. Patient is not a tPA candidate. Discussed the case with the nighttime hospitalist, who accepts for serial neurological checks and MRI in the morning. This document was made in part using voice recognition software. While efforts are made to proofread this document, sound alike and grammatical errors may occur. Departure - Departure Disposition: ED Place in Observation Clinical Impression: TIA (transient ischemic attack) Condition: Stable Discharge Date/Time: 03/01/24 20:34
--- NOTE | 2024-03-01 18:17 | CT Report ---
PROCEDURE: Head W/O Stroke Protocol INDICATIONS: R sided facial droop TECHNIQUE: Noncontrast 4.5 mm thick angled axial sections acquired from the foramen magnum to the vertex, with c oronal reformats. For radiation dose reduction, the following was used: automated exposure control, adjustment of mA and/or kV according to patient size. COMPARISON: CT head 02/19/2024 FINDINGS: Image quality: Excellent. The ventricular system and cortical sulci demonstrate atrophy, consistent for patient's stated age. There are areas of hypodensity in the periventricular and subcortical white matter. There is a right subdural fluid collection predominantly in the frontal temporal and to a lesser degree parietal lobe. Greatest transverse dimension measures 8 mm. It is of mixed density predominantly isodense with supe rimposed areas of hypodensity. It has demonstrated interval resolution of previous areas of hyperdens ity. There remains hemorrhage along the falx although markedly decreased compared to prior exam. Area s of encephalomalacia consistent with old infarction in the right parietal and left frontal lobes are unchanged.. There is isodense attenuation in the left temporal subdural region measuring 3 mm previo usly compared to approximately 2 mm. No superimposed hyperdensity. Globes are symmetrical. Sinuses are aerated. Osseous structures are intact. IMPRESSION: Evolving improvement of right subdural hematoma compared to prior exam. Slightly more prominent appearance of left subdural fluid collection appearing isodense without hyper density showing acute hemorrhage. This also appears to represent evolving hemorrhage compared to prio r exam. The above findings were discussed with Dr. Cain Nogueira on 03/01/2024 at 6:12 PM. This study fulfills neurological imaging criteria for inclusion or exclusion of acute stroke therapie s based on available published neurological imaging guidelines. Reviewed by: Yuliana Jimenez MD on 03/01/2024 6:16 PM PDT Approved by: Yuliana Jimenez MD on 03/01/2024 6:16 PM PDT Station ID: [id number]
[2024-03-01 18:18] LABS: ALBUMIN 3.7 g/dL (3.2-5.5); ALBUMIN/GLOBULIN RATIO 0.8 (1.0-2.2); BILIRUBIN,TOTAL 0.4 mg/dL (0.2-1.0); CALCIUM 10.2 mg/dL (8.5-10.3); CREATININE 0.8 mg/dL (0.6-1.3); POTASSIUM 4.1 mmol/L (3.5-4.5); TOTAL PROTEIN 8.1 g/dL (6.4-8.9)
--- NOTE | 2024-03-01 18:20 | CT Report ---
PROCEDURE: Angio Head/Neck INDICATIONS: R facial droop TECHNIQUE: After the administration of intravenous contrast, 1 mm thick sections acquired from the aortic arch t hrough the [place] of [place]. 3-dimensional uqprzyw-fdfmwceus-ivplgnopbq (MIP) and/or volume renderin g reformats were acquired of the central intracranial vasculature and neck separately. For radiation dose reduction, the following was used: automated exposure control, adjustment of mA and/or kV acco rding to patient size. CONTRAST: 80ML [id number] COMPARISON: CT head 03/01/2024, 02/19/2024, CTA head and neck 05/02/2020 FINDINGS: Image quality: Diagnostic. HEAD CT: Please see separately dictated CT head report of 03/01/[address] ANGIOGRAPHY: Anterior circulation: Intracranial internal carotid arteries are normal in size and flow. The flow within the paired anterior cerebral arteries is normal and symmetric. The flow within the middle cer ebral arteries is normal and symmetric. The anterior communicating artery is seen. No aneurysms are seen. Posterior circulation: Left vertebral artery dominance. Visualized portions of the vertebral arteries demonstrate normal caliber, and join to form a normal appearing basilar artery. Flow within the pos terior cerebral arteries is normal and symmetric. No aneurysms are seen. NECK CT ANGIOGRAPHY: Carotid system: The great vessels demonstrate a conventional anatomy as they arise from the aortic a rch. The origins of the common carotid arteries appear patent. The common carotid arteries demonstr ate normal caliber and courses. The bifurcation regions are both widely patent. The internal caroti d arteries demonstrate normal calibers and courses. Posterior circulation: The origins of the vertebral arteries both appear widely patent. The more ding perior extracranial portions of both vertebral arteries also demonstrate normal courses and calibers. They join to form a normal appearing basilar artery. Soft tissues: Visualized neck soft tissues demonstrate no suspicious abnormalities. Minimal bilater al effusions. Bones: No suspicious bony lesions. Visualized cervical spine appears normally aligned. IMPRESSION: No significant intracranial arterial abnormality is seen. No significant abnormality is seen within the arteries of the neck. The estimate of stenosis included in the report of the imaging study was calculated using the NASCET method Reviewed by: Yuliana Jimenez MD on 03/01/2024 6:19 PM PDT Approved by: Yuliana Jimenez MD on 03/01/2024 6:19 PM PDT Station ID: [id number]
[2024-03-01] MEDS: iohexoL-300 100 ML VIAL IVP ONE (18:47)
--- NOTE | 2024-03-01 19:14 | HISTORY & PHYSICAL EXAMINATION ---
Chief Complaint - Chief Complaint Chief Complaint: R side weakness History of Present Illness - Admitted From Admitted From:: ER - History Obtained From Records Reviewed: Yes History obtained from: Pt, pt's son, staff, chart Exam Limitations: Virtual exam - History of Present Illness HPI Comment/Other: H&P was conducted via video remotely, using Access Cart. Patient is in [place]. Physician is in [place]. Pt's son Isaias is at bedside and is helping with history. Pt speaks [place] and Telugu. 78 yo F with PMH of HTN, HLD, AFib on Eliquis, h/o CVA in 2019 with residual decreased sensation L side, recent traumatic SDH, DM type 2, Depression/Anxiety and COPD presented to the ER with c/o 1 day h/o increased weakness R side. Pt fell and hit head on 02/19/24, was taken to [facility] and found to have SDH. Prior to this, she was independent. She had a CVA in 2019, which caused decreased sensation L side, but she was able to stand and walk on her own. She was hospitalized from 02/18-02/24/24 at [facility], she had a MARKEL and Neurosurgery and Cardiology consults were done. Pt's Eliquis was initially held, but p was told to restart her Eliquis on 02/26/24. On D/C, P.T. was offered to pt, but she declined. Since D/C on 02/24/24, her weakness has increased intermittently. Intermittnetly, she has not been able to stand up on her own and her son and [id number] have to both help her to stand up and walk to the the bathroom, when needed. Last night, she was unable to get out of bed on her own; her son was able to help her. This AM, she was able to stand on her own again. Then, later today, she was unable to stand up on her own. Her son tried to help her, but she was still unable to stand, so they called EMS. Pt has also had difficulty speaking at times in the past 2 weeks, but at other times, she can speak easily. Today, she had difficulty speaking again. She looked at her son and appears to have something to say, but no words came out. She also had some drooping of her R face. Prior to arriving to the ER, her speech difficulties and R sided facial droop resolved. In the ER, W12.1 CT Head: evolving improvement of R SDH and L SDH CTA H/N: neg ER Provider D/W Teleneurology, who recommended MRI in the morning, neurochecks overnight. They do not recommend changing any of her medications. Continue the Eliquis. Patient is not a tPA candidate. 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 Her son has high blood pressure. Social History Notes: The patient lives alone but has son checks on her regularly. She quit smoking about 5 years ago. She has a history of smoking for over 30+ years. She rarely consumes alcohol and does not use any recreational substances. - POLST Patient has POLST: No POLST Status: Full Code Meds/Allgy - Home Medications Home Medications: Ambulatory Orders Medication Instructions Recorded Confirmed Furosemide [Lasix] 20 mg PO DAILY 05/02/20 02/19/24 Aspirin EC [Ecotrin] 81 mg PO DAILY #30 tablet 05/06/20 02/19/24 Mirtazapine 15 mg PO HS 01/13/23 02/19/24 Spironolactone [Aldactone] 12.5 mg PO QPM 01/13/23 02/19/24 Albuterol Sulfate [Proair 90 mcg IH Q4HR PRN 02/19/24 02/19/24 Digihaler] Apixaban [Eliquis] 5 mg PO BID 02/19/24 02/19/24 Atorvastatin Calcium [Lipitor] 80 mg PO HS 02/19/24 02/19/24 Fenofibrate 160 mg PO DAILY 02/19/24 02/19/24 Fluticasone/Umeclidin/Vilanter 1 puffs INH DAILY 02/19/24 02/19/24 [Trelegy Ellipta 100-62.5-25] Magnesium See Rx Instructions .ROUTE .COMPLEX 02/19/24 02/19/24 Magnesium Oxide [Magnesium] 400 mg PO QPM 02/19/24 02/19/24 Metoprolol Tartrate [Lopressor] 12.5 mg PO BID 02/19/24 02/19/24 amLODIPine [Norvasc] 5 mg PO QPM 02/19/24 02/19/24 - Allergies Allergies/Adverse Reactions: Allergies Allergy/AdvReac Type Severity Reaction Status Date / Time Penicillins Allergy Rash Verified 03/01/24 17:44 Review of Systems - All Other Systems All Other Systems: reports: Reviewed and negative Exam - Vital Signs Reviewed Vital Signs: Yes Vital Signs: Vital Signs x48h Temp Pulse Resp BP Pulse Ox 03/01/24 18:17 68 25 H 132/72 H 99 03/01/24 17:47 63 18 127/90 H 99 03/01/24 17:44 36.5 C 85 15 127/90 H 96 - Physical Exam General Appearance: positive: No acute distress Eyes Bilateral: positive: No scleral icterus Respiratory: positive: Other (Access cart stethoscope not working; per ER Provider: CTA B/L) Cardiovascular: positive: Other (Access cart stethoscope not working; per ER Provider: RRR, no murmurs) Abdomen: positive: Other (per ER Provider: non-distended, NT, Soft) Extremities: positive: Other (per ER Provider: moves all extrem, no edema) Neurologic/Psychiatric: positive: Oriented x3, Mood/affect nml, Other (Per ER Provider: NFD) Conclusion/Plan - Problem List (1) TIA (transient ischemic attack) Conclusion/Plan: TIA R side weakness Recent traumatic SDH H/o CVA in 2019 with residual decreased sensation L side -weakness appears to be ongoing, intermittent since SDH 02/29/24 -CT Head: evolving improvement of R SDH and L SDH -CTA H/N: neg -ER Provider D/W Teleneurology, who recommended MRI in the morning, neurochecks overnight. They do not recommend changing any of her medications. -Continue the Eliquis. Patient is not a tPA candidate. -admit to Obs/Med tele -neuro checks -bedside swallow -NPO until bedside swallow done/passed -MRI ordered -PT/OT/SW consulted -check Lipids, TSH, Hgba1c -consider SNF placement as pt has been needing 2 person assist since D/C from [facility] on 02/24/24 s/p SDH Leukocytosis -no s/s infection -W12.1 -CXR and U/A ordered HTN HLD AFib on Eliquis -continue home medications: Amlodipine, Eliquis, Lipitor, Fenofibrate, Spironolactone -hold home medications: ASA, Lasix until verified that pt is on these DM type 2 -per history, but pt not on home DM medications -accuchecks, SS Insulin, Hypoglycemic protocol -check Hgba1c Depression/Anxiety -continue home medications: Mirtazapine COPD -continue home medications: Albuterol JEMIMA, Stacie VTE Prophylaxis: on Eliquis Code Status: D/W pt and pt's son; she is now DNR/DNI ~Mariana Farah MD Hospitalist - Lab Results Lab results reviewed: Yes Fish Bones: 03/01/24 17:47 03/01/24 17:47
[2024-03-01] MEDS ORDERED: SODIUM CHLORIDE FLUSH 0.9% 10 ML SYRINGE IVP PRN (19:40)
[2024-03-01] MEDS ORDERED: ONDANSETRON ODT 4 MG TABLET TL PRN (19:40)
[2024-03-01] MEDS ORDERED: ONDANSETRON 4 MG/2 ML VIAL IVP PRN (19:40)
[2024-03-01] MEDS ORDERED: ALBUTEROL NEB 2.5 MG/3 ML INH PRN (20:34)
[2024-03-01] MEDS: ACETAMINOPHEN 325 MG TABLET PO PRN (21:12)
[2024-03-01] MEDS: SPIRONOLACTONE 25 MG TABLET PO SCH (21:12)
[2024-03-01] MEDS: amLODIPine 5 MG TABLET PO SCH (21:15)
[2024-03-01] MEDS: METOPROLOL TARTRATE 25 MG TABLET PO SCH (21:15)
[2024-03-01] MEDS: ATORVASTATIN 40 MG TABLET PO SCH (21:15)
[2024-03-01] MEDS: MIRTAZAPINE 15 MG TABLET PO SCH (21:16)
[2024-03-01] MEDS: INSULIN LISPRO 300 UNIT/3 ML PEN SUBQ SCH (21:16)
[2024-03-01] MEDS: APIXABAN 5 MG TABLET PO SCH (21:16)
[2024-03-01] MEDS: MAGNESIUM OXIDE 400 MG TABLET PO SCH (21:21)
--- NOTE | 2024-03-01 22:09 | XRAY Report ---
PROCEDURE: Chest 1V INDICATIONS: High WBC TECHNIQUE: One view of the chest was acquired. COMPARISON: Chest CT 02/19/2024 and radiographs 01/13/2023. FINDINGS: Surgical changes and devices: None. Lungs and pleura: Suspected small residual right pleural effusion with adjacent atelectasis or conso lidation. Mediastinum: Mediastinal contours appear normal. Heart size is normal. Bones and chest wall: No suspicious bony lesions. Overlying soft tissues appear unremarkable. [place] right-sided rib fractures. IMPRESSION: Suspect residual small right pleural effusion with right basilar atelectasis or consolidation. Reviewed by: Darshan Montana MD on 03/01/2024 9:29 PM PDT Approved by: Darshan Montana MD on 03/01/2024 9:29 PM PDT Station ID: [id number]
[2024-03-01] MEDS: oxyCODONE 5 MG TABLET PO PRN (22:26)
[2024-03-01] MEDS: polyethylene glycoL 3350 17 GM PACKET PO SCH (22:26)
[2024-03-02] MEDS: SODIUM CHLORIDE FLUSH 0.9% 10 ML SYRINGE IVP SCH (01:06)
[2024-03-02 05:24] LABS: BASOPHILS # (AUTO) 0.2 10^3/uL (0.0-0.1); BASOPHILS % (AUTO) 1.2 %; EOSINOPHILS # (AUTO) 0.4 10^3/uL (0.0-0.7); EOSINOPHILS % (AUTO) 3.1 %; HCT - HEMATOCRIT 40.8 % (37.0-47.0); HGB - HEMOGLOBIN 12.8 g/dL (12.0-16.0); LYMPHOCYTES # (AUTO) 3.5 10^3/uL (1.5-3.5); LYMPHOCYTES % (AUTO) 28.1 %; MEAN CORPUSCULAR HEMOGLOBIN 28.6 pg (27.0-31.0); MEAN CORPUSCULAR HGB CONC 31.4 g/dL (32.0-36.0); MEAN CORPUSCULAR VOLUME 91.1 fL (81.0-99.0); MEAN PLATELET VOLUME 10.5 fL (7.9-10.8); MONOCYTES % (AUTO) 8.2 %; NEUTROPHILS # (AUTO) 7.2 10^3/uL (1.5-6.6); NEUTROPHILS % (AUTO) 58.6 %; PLT - PLATELET COUNT 575 10^3/uL (130-450); RED BLOOD COUNT 4.48 10^6/uL (4.20-5.40); RED CELL DISTRIBUTION WIDTH 14.5 % (12.0-15.0); WHITE BLOOD COUNT 12.3 x10^3/uL (4.8-10.8)
[2024-03-02 05:28] LABS: BILIRUBIN,URINE NEGATIVE (NEGATIVE); GLUCOSE, URINE (UA) NEGATIVE (NEGATIVE); KETONES,URINE (UA) NEGATIVE (NEGATIVE); LEUKOCYTE ESTERASE, URINE NEGATIVE (NEGATIVE); NITRITE,URINE NEGATIVE (NEGATIVE); OCCULT BLOOD,URINE NEGATIVE (NEGATIVE); PROTEIN,URINE NEGATIVE (NEGATIVE); UROBILINOGEN,URINE 0.2 (NORMAL) E.U./dL (NORMAL)
[2024-03-02 05:32] LABS: CLARITY,URINE CLEAR (CLEAR)
[2024-03-02 05:33] LABS: CHOL/HDL RATIO 3.1 (<4.4); CHOLESTEROL 110 mg/dL; HDL CHOLESTEROL 35 mg/dL; LDL CHOLESTEROL,CALCULATED 46 mg/dL; LDL/HDL RATIO 1.3 (<4.4); TRIGLYCERIDES 146 mg/dL; VLDL CHOLESTEROL 29 mg/dL
[2024-03-02 05:34] LABS: CREATININE 0.8 mg/dL (0.6-1.3); POTASSIUM 4.6 mmol/L (3.5-4.5)
[2024-03-02 05:35] LABS: RBC,URINE 0-5 /HPF (0-5); SQUAMOUS EPITHELIAL CELL,UR FEW Squamous (<= Few); WBC,URINE 0-3 /HPF (0-5)
[2024-03-02 05:36] LABS: BACTERIA,URINE Rare /HPF (None Seen)
[2024-03-02 06:10] LABS: THYROID STIMULATING HORMONE 0.95 uIU/mL (0.34-5.60)
--- NOTE | 2024-03-02 07:38 | PROVIDER PROGRESS NOTE ---
<MayurNhazbbcarlo - Last Filed: 03/02/24 12:34> Subjective - Prog Note Date Prog Note Date: 03/02/24 Prog Note Time: 07:40 - Subjective Pt reports feeling: Worse Subjective: Pt states is feels worse compared to yesterday. Her neck is where the majority of the pain resides. Her pain is a 4 or 5/10 today. She complains of a HOOD and loud nose and bright light makes it worse. She reports some dizziness. She does not have any facial drooping b/l and denies any facial weakness. She is speaking in coherent sentences however, it seems as though [place]raini is not her primary language. She was able to eat today. She denies any vision problem, SOB, CP, abdominal pain, n/v, or edema. Her holter monitor is in place. Current Medications - Current Medications Current Medications: Medications Apixaban (Apixaban 5 Mg Tablet) 5 mg PO BID [facility] Last Admin: 03/01/24 21:16 Dose: 5 mg Insulin Human Lispro (Insulin Lispro 300 Unit/3 Ml Pen) 1 - 5 unit SUBQ 0800,1200,1700,2100 MARGIE; Protocol Last Admin: 03/01/24 21:16 Dose: Not Given Magnesium Oxide (Magnesium Oxide 400 Mg Tablet) 400 mg PO QPM [facility] Last Admin: 03/01/24 21:21 Dose: 400 mg Metoprolol Tartrate (Metoprolol Tartrate 25 Mg Tablet) 12.5 mg PO BID [facility] Last Admin: 03/01/24 21:15 Dose: 12.5 mg Mirtazapine (Mirtazapine 15 Mg Tablet) 15 mg PO HS [facility] Last Admin: 03/01/24 21:16 Dose: 15 mg Non-Formulary Medication (Fenofibrate [Fenofibrate]) 160 mg PO DAILY [facility] Acetaminophen (Acetaminophen 325 Mg Tablet) 650 mg PO Q4HR PRN PRN Reason: Pain 1 to 4, or Fever Last Admin: 03/02/24 06:26 Dose: 650 mg Albuterol (Albuterol Neb 2.5 Mg/3 Ml) 2.5 mg INH RTQ4H PRN PRN Reason: Wheezing Amlodipine Besylate (Amlodipine 5 Mg Tablet) 5 mg PO QPM [facility] Last Admin: 03/01/24 21:15 Dose: 5 mg Atorvastatin Calcium (Atorvastatin 40 Mg Tablet) 80 mg PO HS [facility] Last Admin: 03/01/24 21:15 Dose: 80 mg Non-Formulary Medication (Fluticasone/Umeclidin/Vilanter [Trelegy Ellipta 100-62.5-25]) 1 puffs INH DAILY [facility] Ondansetron HCl (Ondansetron Odt 4 Mg Tablet) 4 mg TL Q6HR PRN PRN Reason: Nausea / Vomiting Ondansetron HCl (Ondansetron 4 Mg/2 Ml Vial) 4 mg IVP Q6HR PRN PRN Reason: Nausea / Vomiting Oxycodone HCl (Oxycodone 5 Mg Tablet) 5 mg PO Q6HR PRN PRN Reason: Moderate Pain (Level 4-6) Last Admin: 03/01/24 22:26 Dose: 5 mg Spironolactone (Spironolactone 25 Mg Tablet) 12.5 mg PO QPM [facility] Last Admin: 03/01/24 21:12 Dose: 12.5 mg Objective - Vital Signs/Intake & Output Vital Signs: Vital Signs x48h Temp Pulse Resp BP Pulse Ox 03/02/24 05:05 36.2 C L 63 16 122/61 97 03/02/24 00:06 129/61 03/01/24 23:41 36.4 C L 75 18 166/68 H 95 Intake & Output: Intake & Output 02/28/24 02/29/24 03/01/24 03/02/24 23:59 23:59 23:59 23:59 Intake Total 0 Output Total 0 1170 Balance 0 -1170 - Objective General Appearance: positive: No acute distress Eyes Bilateral: positive: Normal inspection, EOMI ENT: positive: ENT inspection nml Neck: positive: Nml inspection, No JVD, Trachea midline Respiratory: positive: Chest non-tender, No respiratory distress, Breath sounds nml Cardiovascular: positive: Regular rate & rhythm. negative: JVD present Peripheral Pulses: 2+ Posterior tibialis (R), 2+ Posterior tibialis (L) Abdomen: positive: Non-tender, No distention. negative: Tenderness, Guarding, Rebound Skin: positive: Color nml Extremities: positive: Full ROM, No pedal edema. negative: Calf tenderness Neurologic/Psychiatric: positive: Oriented x3, Mood/affect nml - Lab Results Fish Bones: 03/02/24 05:08 03/02/24 05:08 Other Labs: Lab Results x24hrs 03/02/24 03/02/24 03/02/24 Range/Units 05:08 05:08 05:08 WBC 12.3 H (4.8-10.8) x10^3/uL RBC 4.48 (4.20-5.40) 10^6/uL Hgb 12.8 (12.0-16.0) g/dL Hct 40.8 (37.0-47.0) % MCV 91.1 (81.0-99.0) fL MCH 28.6 (27.0-31.0) pg MCHC 31.4 L (32.0-36.0) g/dL RDW 14.5 (12.0-15.0) % Plt Count 575 H (130-450) 10^3/uL MPV 10.5 (7.9-10.8) fL Neut # (Auto) 7.2 H (1.5-6.6) 10^3/uL Lymph # (Auto) 3.5 (1.5-3.5) 10^3/uL [place] # (Auto) 1.0 (0.0-1.0) 10^3/uL Eos # (Auto) 0.4 (0.0-0.7) 10^3/uL Baso # (Auto) 0.2 H (0.0-0.1) 10^3/uL Absolute Nucleated RBC 0.00 x10^3/uL Nucleated RBC % 0.0 /100WBC Sodium 137 (135-145) mmol/L Potassium 4.6 H (3.5-4.5) mmol/L Chloride 103 (101-111) mmol/L Carbon Dioxide 28 (21-32) mmol/L Anion Gap 6.0 (6-13) BUN 19 (6-20) mg/dL Creatinine 0.8 (0.6-1.3) mg/dL Estimated GFR (MDRD) 69 L (>89) Glucose 122 H (74-104) mg/dL POC Whole Bld Glucose (70 - 100) mg/dL Calcium 10.0 (8.5-10.3) mg/dL Total Bilirubin (0.2-1.0) mg/dL AST (10-42) IU/L ALT (10-60) IU/L Alkaline Phosphatase (42-121) IU/L Total Protein (6.4-8.9) g/dL Albumin (3.2-5.5) g/dL Globulin (2.1-4.2) g/dL Albumin/Globulin Ratio (1.0-2.2) Triglycerides 146 mg/dL Cholesterol 110 ( - 200) mg/dL LDL Cholesterol, Calc 46 ( - 129) mg/dL VLDL Cholesterol 29 mg/dL HDL Cholesterol 35 L (60 - ) mg/dL LDL/HDL Ratio 1.3 (<4.4) Cholesterol/HDL Ratio 3.1 (<4.4) Lipase (11-82) U/L TSH 0.95 (0.34-5.60) uIU/mL Urine Color Urine Clarity (CLEAR) Urine pH (5.0-7.5) PH Ur Specific [place] (1.002-1.030) Urine Protein (NEGATIVE) mg/dL Urine Glucose (UA) (NEGATIVE) mg/dL Urine Ketones (NEGATIVE) mg/dL Urine Occult Blood (NEGATIVE) Urine Nitrite (NEGATIVE) Urine Bilirubin (NEGATIVE) Urine Urobilinogen (NORMAL) E.U./dL Ur Leukocyte Esterase (NEGATIVE) Urine RBC (0-5) /HPF Urine WBC (0-5) /HPF Ur Squamous Epith Cells (<= Few) Urine Bacteria (None Seen) /HPF Ur Microscopic Review Urine Culture Comments 03/02/24 03/01/24 03/01/24 Range/Units 05:07 21:03 17:47 WBC (4.8-10.8) x10^3/uL RBC (4.20-5.40) 10^6/uL Hgb (12.0-16.0) g/dL Hct (37.0-47.0) % MCV (81.0-99.0) fL MCH (27.0-31.0) pg MCHC (32.0-36.0) g/dL RDW (12.0-15.0) % Plt Count (130-450) 10^3/uL MPV (7.9-10.8) fL Neut # (Auto) (1.5-6.6) 10^3/uL Lymph # (Auto) (1.5-3.5) 10^3/uL [place] # (Auto) (0.0-1.0) 10^3/uL Eos # (Auto) (0.0-0.7) 10^3/uL Baso # (Auto) (0.0-0.1) 10^3/uL Absolute Nucleated RBC x10^3/uL Nucleated RBC % /100WBC Sodium 138 (135-145) mmol/L Potassium 4.1 (3.5-4.5) mmol/L Chloride 103 (101-111) mmol/L Carbon Dioxide 27 (21-32) mmol/L Anion Gap 8.0 (6-13) BUN 18 (6-20) mg/dL Creatinine 0.8 (0.6-1.3) mg/dL Estimated GFR (MDRD) 69 L (>89) Glucose 107 H (74-104) mg/dL POC Whole Bld Glucose 116 H (70 - 100) mg/dL Calcium 10.2 (8.5-10.3) mg/dL Total Bilirubin 0.4 (0.2-1.0) mg/dL AST 20 (10-42) IU/L ALT 9 L (10-60) IU/L Alkaline Phosphatase 93 (42-121) IU/L Total Protein 8.1 (6.4-8.9) g/dL Albumin 3.7 (3.2-5.5) g/dL Globulin 4.4 H (2.1-4.2) g/dL Albumin/Globulin Ratio 0.8 L (1.0-2.2) Triglycerides mg/dL Cholesterol ( - 200) mg/dL LDL Cholesterol, Calc ( - 129) mg/dL VLDL Cholesterol mg/dL HDL Cholesterol (60 - ) mg/dL LDL/HDL Ratio (<4.4) Cholesterol/HDL Ratio (<4.4) Lipase 22 (11-82) U/L TSH (0.34-5.60) uIU/mL Urine Color YELLOW Urine Clarity CLEAR (CLEAR) Urine pH 5.0 (5.0-7.5) PH Ur Specific [place] 1.025 (1.002-1.030) Urine Protein NEGATIVE (NEGATIVE) mg/dL Urine Glucose (UA) NEGATIVE (NEGATIVE) mg/dL Urine Ketones NEGATIVE (NEGATIVE) mg/dL Urine Occult Blood NEGATIVE (NEGATIVE) Urine Nitrite NEGATIVE (NEGATIVE) Urine Bilirubin NEGATIVE (NEGATIVE) Urine Urobilinogen 0.2 (NORMAL) (NORMAL) E.U./dL Ur Leukocyte Esterase NEGATIVE (NEGATIVE) Urine RBC 0-5 (0-5) /HPF Urine WBC 0-3 (0-5) /HPF Ur Squamous Epith Cells FEW Squamous (<= Few) Urine Bacteria Rare (None Seen) /HPF Ur Microscopic Review Cancelled Urine Culture Comments NOT INDICATED 03/01/24 Range/Units 17:47 WBC 12.1 H (4.8-10.8) x10^3/uL RBC 4.76 (4.20-5.40) 10^6/uL Hgb 13.4 (12.0-16.0) g/dL Hct 42.8 (37.0-47.0) % MCV 89.9 (81.0-99.0) fL MCH 28.2 (27.0-31.0) pg MCHC 31.3 L (32.0-36.0) g/dL RDW 14.4 (12.0-15.0) % Plt Count 614 H (130-450) 10^3/uL MPV 10.4 (7.9-10.8) fL Neut # (Auto) 7.1 H (1.5-6.6) 10^3/uL Lymph # (Auto) 3.4 (1.5-3.5) 10^3/uL [place] # (Auto) 1.0 (0.0-1.0) 10^3/uL Eos # (Auto) 0.4 (0.0-0.7) 10^3/uL Baso # (Auto) 0.1 (0.0-0.1) 10^3/uL Absolute Nucleated RBC 0.00 x10^3/uL Nucleated RBC % 0.0 /100WBC Sodium (135-145) mmol/L Potassium (3.5-4.5) mmol/L Chloride (101-111) mmol/L Carbon Dioxide (21-32) mmol/L Anion Gap (6-13) BUN (6-20) mg/dL Creatinine (0.6-1.3) mg/dL Estimated GFR (MDRD) (>89) Glucose (74-104) mg/dL POC Whole Bld Glucose (70 - 100) mg/dL Calcium (8.5-10.3) mg/dL Total Bilirubin (0.2-1.0) mg/dL AST (10-42) IU/L ALT (10-60) IU/L Alkaline Phosphatase (42-121) IU/L Total Protein (6.4-8.9) g/dL Albumin (3.2-5.5) g/dL Globulin (2.1-4.2) g/dL Albumin/Globulin Ratio (1.0-2.2) Triglycerides mg/dL Cholesterol ( - 200) mg/dL LDL Cholesterol, Calc ( - 129) mg/dL VLDL Cholesterol mg/dL HDL Cholesterol (60 - ) mg/dL LDL/HDL Ratio (<4.4) Cholesterol/HDL Ratio (<4.4) Lipase (11-82) U/L TSH (0.34-5.60) uIU/mL Urine Color Urine Clarity (CLEAR) Urine pH (5.0-7.5) PH Ur Specific [place] (1.002-1.030) Urine Protein (NEGATIVE) mg/dL Urine Glucose (UA) (NEGATIVE) mg/dL Urine Ketones (NEGATIVE) mg/dL Urine Occult Blood (NEGATIVE) Urine Nitrite (NEGATIVE) Urine Bilirubin (NEGATIVE) Urine Urobilinogen (NORMAL) E.U./dL Ur Leukocyte Esterase (NEGATIVE) Urine RBC (0-5) /HPF Urine WBC (0-5) /HPF Ur Squamous Epith Cells (<= Few) Urine Bacteria (None Seen) /HPF Ur Microscopic Review Urine Culture Comments Sepsis Event Note (H) - Evaluation Current Stage of Sepsis: Ruled out Assessment/Plan - Problem List (1) TIA (transient ischemic attack) Impression: Patient presented to the ED with R sided weakness and facial droop. She had a recent SDH. 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 Head CT on 03-01-24 showed improvement of right SDH compared to prior exam. A prominent appearance of left subdural fluid collection appearing isodense without hyperdensity showing acute hemorrhage. This appeared to represent evolving hemorrhage compared to prior exam. CTA Head and Neck on 03-01-24 showed no abnormalities. Will get record for MARKEL done at [facility]. Last neuro check with a GCS of 15 and Oriented x3. She no longer is experiencing facial drooping and weakness. Continue Neuro checks. MRI to be completed today. HDL low at 35. TSH normal. HgBA1c is 6.1. PT recommended SNF placement for discharge as pt has been needing a 2 person assist since her discharge from [facility] on 02-24-24 s/p SDH. We are also considering Home Health, waiting to speak with family and patient. PT/OT ordered. (2) Leukocytosis, unspecified Impression: Patient WBC is 12.3. Chest X-ray completed yesterday suspects small right pleural effusion with basilar atelectasis or consolidation. Her UA was negative and her abdominal exam was negative. Check another set of CBC labs tomorrow if she is not discharged. (3) Atrial fibrillation Impression: Continue Eliquis. Continue to monitor on Tele. We have ruled out embolic stroke since her symptoms have resolved. (4) Hypertension Impression: BP at 122/61. Continue Amlodipine and Spironolactone. (5) Hyperlipidemia Impression: HDL at 35. Continue Lipitor and Fenofibrate. (6) DM type 2 (diabetes mellitus, type 2) Impression: Glucose at 122 up from 166 yesterday. HgBA1C is 6.1. She does not take any diabetic medication at home. Continue Insulin Human Lispro 1-5 units SUBQ QID. (7) COPD (chronic obstructive pulmonary disease) Impression: Stopped Trelegy 1 puff INH daily. Started Budesonide 0.5 mg INH RTBID and Atrovent 0.5 mg INH RTQ6H. Continue home medications: Albuterol MDI. (8) Anxiety and depression Impression: continue home medications: Mirtazapine <Kallie Yuen - Last Filed: 03/02/24 13:01> Objective - Vital Signs/Intake & Output Vital Signs: Vital Signs x48h Temp Pulse Pulse Resp BP Pulse Ox 03/02/24 09:14 78 16 03/02/24 05:05 36.2 C L 63 16 122/61 97 Intake & Output: Intake & Output 02/28/24 02/29/24 03/01/24 03/02/24 23:59 23:59 23:59 23:59 Intake Total 0 120 Output Total 0 1170 Balance 0 -1050 - Lab Results Fish Bones: 03/02/24 05:08 03/02/24 05:08 Other Labs: Lab Results x24hrs 03/02/24 03/02/24 03/02/24 Range/Units 05:08 05:08 05:08 WBC 12.3 H (4.8-10.8) x10^3/uL RBC 4.48 (4.20-5.40) 10^6/uL Hgb 12.8 (12.0-16.0) g/dL Hct 40.8 (37.0-47.0) % MCV 91.1 (81.0-99.0) fL MCH 28.6 (27.0-31.0) pg MCHC 31.4 L (32.0-36.0) g/dL RDW 14.5 (12.0-15.0) % Plt Count 575 H (130-450) 10^3/uL MPV 10.5 (7.9-10.8) fL Neut # (Auto) 7.2 H (1.5-6.6) 10^3/uL Lymph # (Auto) 3.5 (1.5-3.5) 10^3/uL [place] # (Auto) 1.0 (0.0-1.0) 10^3/uL Eos # (Auto) 0.4 (0.0-0.7) 10^3/uL Baso # (Auto) 0.2 H (0.0-0.1) 10^3/uL Absolute Nucleated RBC 0.00 x10^3/uL Nucleated RBC % 0.0 /100WBC Sodium 137 (135-145) mmol/L Potassium 4.6 H (3.5-4.5) mmol/L Chloride 103 (101-111) mmol/L Carbon Dioxide 28 (21-32) mmol/L Anion Gap 6.0 (6-13) BUN 19 (6-20) mg/dL Creatinine 0.8 (0.6-1.3) mg/dL Estimated GFR (MDRD) 69 L (>89) Glucose 122 H (74-104) mg/dL POC Whole Bld Glucose (70 - 100) mg/dL Estimat Average Glucose (70-100) mg/dL Hemoglobin A1c % (4.27-6.07) % Calcium 10.0 (8.5-10.3) mg/dL Total Bilirubin (0.2-1.0) mg/dL AST (10-42) IU/L ALT (10-60) IU/L Alkaline Phosphatase (42-121) IU/L Total Protein (6.4-8.9) g/dL Albumin (3.2-5.5) g/dL Globulin (2.1-4.2) g/dL Albumin/Globulin Ratio (1.0-2.2) Triglycerides 146 mg/dL Cholesterol 110 ( - 200) mg/dL LDL Cholesterol, Calc 46 ( - 129) mg/dL VLDL Cholesterol 29 mg/dL HDL Cholesterol 35 L (60 - ) mg/dL LDL/HDL Ratio 1.3 (<4.4) Cholesterol/HDL Ratio 3.1 (<4.4) Lipase (11-82) U/L TSH 0.95 (0.34-5.60) uIU/mL Urine Color Urine Clarity (CLEAR) Urine pH (5.0-7.5) PH Ur Specific [place] (1.002-1.030) Urine Protein (NEGATIVE) mg/dL Urine Glucose (UA) (NEGATIVE) mg/dL Urine Ketones (NEGATIVE) mg/dL Urine Occult Blood (NEGATIVE) Urine Nitrite (NEGATIVE) Urine Bilirubin (NEGATIVE) Urine Urobilinogen (NORMAL) E.U./dL Ur Leukocyte Esterase (NEGATIVE) Urine RBC (0-5) /HPF Urine WBC (0-5) /HPF Ur Squamous Epith Cells (<= Few) Urine Bacteria (None Seen) /HPF Ur Microscopic Review Urine Culture Comments 03/02/24 03/02/24 03/01/24 Range/Units 05:08 05:07 21:03 WBC (4.8-10.8) x10^3/uL RBC (4.20-5.40) 10^6/uL Hgb (12.0-16.0) g/dL Hct (37.0-47.0) % MCV (81.0-99.0) fL MCH (27.0-31.0) pg MCHC (32.0-36.0) g/dL RDW (12.0-15.0) % Plt Count (130-450) 10^3/uL MPV (7.9-10.8) fL Neut # (Auto) (1.5-6.6) 10^3/uL Lymph # (Auto) (1.5-3.5) 10^3/uL [place] # (Auto) (0.0-1.0) 10^3/uL Eos # (Auto) (0.0-0.7) 10^3/uL Baso # (Auto) (0.0-0.1) 10^3/uL Absolute Nucleated RBC x10^3/uL Nucleated RBC % /100WBC Sodium (135-145) mmol/L Potassium (3.5-4.5) mmol/L Chloride (101-111) mmol/L Carbon Dioxide (21-32) mmol/L Anion Gap (6-13) BUN (6-20) mg/dL Creatinine (0.6-1.3) mg/dL Estimated GFR (MDRD) (>89) Glucose (74-104) mg/dL POC Whole Bld Glucose 116 H (70 - 100) mg/dL Estimat Average Glucose 128 H (70-100) mg/dL Hemoglobin A1c % 6.1 H (4.27-6.07) % Calcium (8.5-10.3) mg/dL Total Bilirubin (0.2-1.0) mg/dL AST (10-42) IU/L ALT (10-60) IU/L Alkaline Phosphatase (42-121) IU/L Total Protein (6.4-8.9) g/dL Albumin (3.2-5.5) g/dL Globulin (2.1-4.2) g/dL Albumin/Globulin Ratio (1.0-2.2) Triglycerides mg/dL Cholesterol ( - 200) mg/dL LDL Cholesterol, Calc ( - 129) mg/dL VLDL Cholesterol mg/dL HDL Cholesterol (60 - ) mg/dL LDL/HDL Ratio (<4.4) Cholesterol/HDL Ratio (<4.4) Lipase (11-82) U/L TSH (0.34-5.60) uIU/mL Urine Color YELLOW Urine Clarity CLEAR (CLEAR) Urine pH 5.0 (5.0-7.5) PH Ur Specific [place] 1.025 (1.002-1.030) Urine Protein NEGATIVE (NEGATIVE) mg/dL Urine Glucose (UA) NEGATIVE (NEGATIVE) mg/dL Urine Ketones NEGATIVE (NEGATIVE) mg/dL Urine Occult Blood NEGATIVE (NEGATIVE) Urine Nitrite NEGATIVE (NEGATIVE) Urine Bilirubin NEGATIVE (NEGATIVE) Urine Urobilinogen 0.2 (NORMAL) (NORMAL) E.U./dL Ur Leukocyte Esterase NEGATIVE (NEGATIVE) Urine RBC 0-5 (0-5) /HPF Urine WBC 0-3 (0-5) /HPF Ur Squamous Epith Cells FEW Squamous (<= Few) Urine Bacteria Rare (None Seen) /HPF Ur Microscopic Review Cancelled Urine Culture Comments NOT INDICATED 03/01/24 03/01/24 Range/Units 17:47 17:47 WBC 12.1 H (4.8-10.8) x10^3/uL RBC 4.76 (4.20-5.40) 10^6/uL Hgb 13.4 (12.0-16.0) g/dL Hct 42.8 (37.0-47.0) % MCV 89.9 (81.0-99.0) fL MCH 28.2 (27.0-31.0) pg MCHC 31.3 L (32.0-36.0) g/dL RDW 14.4 (12.0-15.0) % Plt Count 614 H (130-450) 10^3/uL MPV 10.4 (7.9-10.8) fL Neut # (Auto) 7.1 H (1.5-6.6) 10^3/uL Lymph # (Auto) 3.4 (1.5-3.5) 10^3/uL [place] # (Auto) 1.0 (0.0-1.0) 10^3/uL Eos # (Auto) 0.4 (0.0-0.7) 10^3/uL Baso # (Auto) 0.1 (0.0-0.1) 10^3/uL Absolute Nucleated RBC 0.00 x10^3/uL Nucleated RBC % 0.0 /100WBC Sodium 138 (135-145) mmol/L Potassium 4.1 (3.5-4.5) mmol/L Chloride 103 (101-111) mmol/L Carbon Dioxide 27 (21-32) mmol/L Anion Gap 8.0 (6-13) BUN 18 (6-20) mg/dL Creatinine 0.8 (0.6-1.3) mg/dL Estimated GFR (MDRD) 69 L (>89) Glucose 107 H (74-104) mg/dL POC Whole Bld Glucose (70 - 100) mg/dL Estimat Average Glucose (70-100) mg/dL Hemoglobin A1c % (4.27-6.07) % Calcium 10.2 (8.5-10.3) mg/dL Total Bilirubin 0.4 (0.2-1.0) mg/dL AST 20 (10-42) IU/L ALT 9 L (10-60) IU/L Alkaline Phosphatase 93 (42-121) IU/L Total Protein 8.1 (6.4-8.9) g/dL Albumin 3.7 (3.2-5.5) g/dL Globulin 4.4 H (2.1-4.2) g/dL Albumin/Globulin Ratio 0.8 L (1.0-2.2) Triglycerides mg/dL Cholesterol ( - 200) mg/dL LDL Cholesterol, Calc ( - 129) mg/dL VLDL Cholesterol mg/dL HDL Cholesterol (60 - ) mg/dL LDL/HDL Ratio (<4.4) Cholesterol/HDL Ratio (<4.4) Lipase 22 (11-82) U/L TSH (0.34-5.60) uIU/mL Urine Color Urine Clarity (CLEAR) Urine pH (5.0-7.5) PH Ur Specific [place] (1.002-1.030) Urine Protein (NEGATIVE) mg/dL Urine Glucose (UA) (NEGATIVE) mg/dL Urine Ketones (NEGATIVE) mg/dL Urine Occult Blood (NEGATIVE) Urine Nitrite (NEGATIVE) Urine Bilirubin (NEGATIVE) Urine Urobilinogen (NORMAL) E.U./dL Ur Leukocyte Esterase (NEGATIVE) Urine RBC (0-5) /HPF Urine WBC (0-5) /HPF Ur Squamous Epith Cells (<= Few) Urine Bacteria (None Seen) /HPF Ur Microscopic Review Urine Culture Comments
[2024-03-02 08:41] LABS: ESTIMATED AVERAGE GLUCOSE 128 mg/dL (70-100); HEMOGLOBIN A1c% 6.1 % (4.27-6.07)
[2024-03-02] MEDS: [UNRECOGNIZED DRUG - REMARK] PO SCH (08:48)
[2024-03-02] MEDS: [UNRECOGNIZED DRUG - REMARK] INH SCH (08:48)
[2024-03-02] MEDS: FORMOTEROL FUMARATE NEB 20 MCG/2 ML INH SCH (09:14)
[2024-03-02] MEDS: BUDESONIDE 0.5 MG/2 ML NEB INH SCH (09:14)
[2024-03-02] MEDS: FENOFIBRATE 48 MG TABLET PO SCH (10:23)
--- NOTE | 2024-03-02 12:39 | PHARMACY PROGRESS NOTE ---
- Best Possible Medication History Admit Date and Time: 03/01/241939 Processed by: Pharmacy Medications reviewed in ED?: No Medication History completed: Yes Patient Interview: Pt unable to participate Secondary Source(s): Other family member (PATIENT'S SON), Insurance records As the person ultimately responsible for medication therapy, providers are able to order a medication from an existing home medication list in [facility] via the "Reconcile Routine" prior to Confirmation of that medication by child support officer. Such practice is discouraged except when the physician, in their clinical judgment, deems that a medical need exists for a medication without regard to previous use.
[2024-03-02] MEDS: IPRATROPIUM 0.2 MG/ML NEB INH SCH (13:27)
[2024-03-02] MEDS: polyethylene glycoL 3350 17 GM PACKET PO SCH (14:02)
[2024-03-02] MEDS: DOCUSATE SODIUM 250 MG CAPSULE PO SCH (14:02)
--- NOTE | 2024-03-02 14:05 | ADVANCE CARE PLANNING NOTE ---
Advance Care Planning - Planning Encounter Date: 03/02/24 Time: 14:02 Purpose: determine goals of care Parties in Attendance: Patient. Also used iPad interpretation audio only in Turk[place]. Patient quickly ignore the bus starter and engaged directly in conversation with me. Decisional Capacity of the Patient: Patient is oriented to person place and time she is aware of her current situation with regards to her health - Encounter Subjective/Patient's Story: Tiera is an 78-year-old female who was in relatively good health until several weeks ago. At home on 16 February she had a head injury where she hit her head on her bedpost. She was at home not doing well and then eventually presented to the emergency department here at [facility]. Upon workup she was then life flighted to [facility] for a subdural hematoma. Her son is unable to relate to me many details of her hospitalization only that she was discharged home on 02/24/2024. No major interventions were undertaken and family did not discussed the possibility of surgery with the team at [facility]. No advance care planning discussions were undertaken. Tiera lives in her own home adjacent to her son's home she does get help with her care needs. Objective/Medical Story: She was brought into the hospital because of worsening symptoms with a headache and dizziness she apparently had some facial drooping and extremity weakness which click quickly resolved. She has a history of atrial fibrillation she is on Eliquis. Review of the outpatient records indicate that she was to see cardiology at some point but did not. She also had an echocardiogram while admitted for her subdural hematoma at [facility], I am trying to obtain this result currently. Goals of Care: When asked about her goals of care and what her desires for her care are she is somewhat evasive. She states "if there is strength enough to live please save me." She voices the need not to be a burden to her son. She does name her son Jeffry Welch as her medical decision-maker. Plan: Earlier in the day I did discuss the POLST form with her son Jeffry Horan to make him aware of what the form is and what the goals are. He was not able to be present at the discussion today but fully supports the idea that his mother have such a document and that she voice her desires. Code Status: Do Not Attempt Resuscitation Time spent on advance care plannin min.
--- NOTE | 2024-03-02 16:31 | MRI Report ---
PROCEDURE: Brain WO INDICATIONS: TIA TECHNIQUE: Multiplanar multisequential MR images of the brain were obtained without contrast COMPARISON: CT brain 03/01/2024 and MRI brain 05/02/2020 FINDINGS: CSF Spaces: No evidence of hydronephrosis. Bilateral subdural hematomas are again noted measuring up to 8 mm in thickness. No interhemispheric component noted as well, similar in thickness. Brain: No old left frontal and right parietal infarcts again noted, stable from prior exam. Old bloo d products also noted, stable. No evidence of midline shift. Underlying atrophy and chronic ischemic change. No mass lesion. Skull and face: Calvarium has normal marrow signal. Orbits appear normal. Incidental hyperostosis f rontalis interna noted. Sinuses: Sinuses and mastoids are clear. IMPRESSION: Stable bilateral subdural hematomas, similar in size and distribution. Left parafalcine subdural also similar in size. 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 No evidence of acute infarct or midline shift. Underlying atrophy and white matter chronic ischemic change Reviewed by: Mian Peterson MD on 03/02/2024 3:30 PM AKDT Approved by: Mian Peterson MD on 03/02/2024 3:30 PM AKDT Station ID: [id number]
[2024-03-03 05:56] LABS: BASOPHILS # (AUTO) 0.2 10^3/uL (0.0-0.1); BASOPHILS % (AUTO) 1.4 %; EOSINOPHILS # (AUTO) 0.4 10^3/uL (0.0-0.7); EOSINOPHILS % (AUTO) 3.3 %; HCT - HEMATOCRIT 41.1 % (37.0-47.0); HGB - HEMOGLOBIN 12.7 g/dL (12.0-16.0); LYMPHOCYTES # (AUTO) 3.2 10^3/uL (1.5-3.5); MEAN CORPUSCULAR HEMOGLOBIN 27.9 pg (27.0-31.0); MEAN CORPUSCULAR HGB CONC 30.9 g/dL (32.0-36.0); MEAN CORPUSCULAR VOLUME 90.3 fL (81.0-99.0); MEAN PLATELET VOLUME 10.5 fL (7.9-10.8); MONOCYTES # (AUTO) 1.1 10^3/uL (0.0-1.0); MONOCYTES % (AUTO) 8.5 %; NEUTROPHILS # (AUTO) 7.8 10^3/uL (1.5-6.6); NEUTROPHILS % (AUTO) 60.9 %; PLT - PLATELET COUNT 616 10^3/uL (130-450); RED BLOOD COUNT 4.55 10^6/uL (4.20-5.40); RED CELL DISTRIBUTION WIDTH 14.5 % (12.0-15.0); WHITE BLOOD COUNT 12.9 x10^3/uL (4.8-10.8)
[2024-03-03 06:09] LABS: CALCIUM 9.7 mg/dL (8.5-10.3); CREATININE 0.8 mg/dL (0.6-1.3); POTASSIUM 4.4 mmol/L (3.5-4.5)
--- NOTE | 2024-03-03 07:52 | DISCHARGE SUMMARY ---
<Miguel A Merchantazbbcarlo - Last Filed: 03/03/24 13:13> Discharge Summary Admit Date: 03/01/24 Discharge Date: 03/03/24 Discharging Provider: Kallie Yuen Primary Care Provider: Britney Carrington PA-C Code Status: Do Not Attempt Resuscitation Condition at Discharge: Stable Discharge Disposition: 03 [facility] DC/Xfer - DIAGNOSES Admission Diagnoses: (1) TIA (transient ischemic attack) (2) Leukocytosis, unspecified (3) Atrial fibrillation (4) Hypertension (5) Hyperlipidemia (6) DM type 2 (diabetes mellitus, type 2) (7) COPD (chronic obstructive pulmonary disease) (8) Anxiety and depression Discharge Diagnoses with Status of Each Condition: (1) TIA (transient ischemic attack) Patient presented to the ED with R sided weakness and facial droop. She had a recent SDH. 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 Head CT on 03-01-24 showed improvement of right SDH compared to prior exam. A prominent appearance of left subdural fluid collection appearing isodense without hyperdensity showing acute hemorrhage. This appeared to represent evolving hemorrhage compared to prior exam. CTA Head and Neck on 03-01-24 showed no abnormalities. MRI on 03-02-24 showed stable b/l subdural hematomas, similar in size and distribution. Left parafalcine subdural also similar in size. 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 No evidence of acute infarct or midline shift. Underlying atrophy and white matter chronic ischemic change. Waiting for record for MARKEL done at [facility] during admission from 02/18- 02/24/24. Last neuro check with a GCS of 15 and Oriented x3. She no longer is experiencing facial drooping and weakness. She is speaking in full sentences and is able to retain food. (2) Leukocytosis, unspecified Patient WBC is 12.9 today from 1.3 yesterday. Chest X-ray completed 03-01-24 suspects small right pleural effusion with basilar atelectasis or consolidation. Her UA was negative and her abdominal exam was negative. (3) Atrial fibrillation Continue Eliquis. We have ruled out embolic stroke since her symptoms have resolved. Should schedule appointment with PCP for continued management. (4) Hypertension BP at 126/64. Continue Amlodipine and Spironolactone. Should schedule appointment with PCP for continued management. (5) Hyperlipidemia HDL at 35. Continue Lipitor and Fenofibrate. Should schedule appointment with PCP for continued management. (6) DM type 2 (diabetes mellitus, type 2) Glucose at 122 up from 166 yesterday. HgBA1C is 6.1. She does not take any diabetic medication at home. Should schedule appointment with PCP for continued management. (7) COPD (chronic obstructive pulmonary disease) Continue home medications: Albuterol MDI and trelegy (8) Anxiety and depression continue home medications: Mirtazapine - HPI History of Present Illness: HPI from admission: "78 yo F with PMH of HTN, HLD, AFib on Eliquis, h/o CVA in 2019 with residual decreased sensation L side, recent traumatic SDH, DM type 2, Depression/Anxiety and COPD presented to the ER with c/o 1 day h/o increased weakness R side. Pt f ell and hit head on 02/19/24, was taken to [facility] and found to have SDH. Prior to this, she was independent. She had a CVA in 2019, which caused decreased sensation L side, but she was able to stand and walk on her own. She was hospitalized from 02/18-02/24/[address] [facility], she had a MARKEL and Neurosurgery and Cardiology consults were done. Pt's Eliquis was initially held, but p was told to restart her Eliquis on 02/26/24. On D/C, P.T. was offered to pt, but she declined. Since D/C on 02/24/24, her weakness has increased intermittently. Intermittnetly, she has not been able to stand up on her own and her son and [id number] have to both help her to stand up and walk to the the bathroom, when needed. Last night, she was unable to get out of bed on her own; her son was able to help her. This AM, she was able to stand on her own again. Then, later today, she was unable to stand up on her own. Her son tried to help her, but she was still unable to stand, so they called EMS. Pt has also had difficulty speaking at times in the past 2 weeks, but at other times, she can speak easily. Today, she had difficulty speaking again. She looked at her son and appears to have something to say, but no words came out. She also had some drooping of her R face. Prior to arriving to the ER, her speech difficulties and R sided facial droop resolved. In the ER, W12.1 CT Head: evolving improvement of R SDH and L SDH CTA H/N: neg ER Provider D/W Teleneurology, who recommended MRI in the morning, neurochecks overnight. They do not recommend changing any of her medications. Continue the Eliquis. Patient is not a tPA candidate." - CONSULTS | PROCEDURES Consultations: PT/OT Procedures: 1. Head CT on 03-01-24 showed improvement of right SDH compared to prior exam. A prominent appearance of left subdural fluid collection appearing isodense without hyperdensity showing acute hemorrhage. This appeared to represent evolving hemorrhage compared to prior exam. 2. CTA Head and Neck on 03-01-24 showed no abnormalities. 3. Chest X-ray completed 03-01-24 suspects small right pleural effusion with basilar atelectasis or consolidation. Her UA was negative and her abdominal exam was negative. 4. MRI on 03-02-24 showed stable b/l subdural hematomas, similar in size and distribution. Left parafalcine subdural also similar in size. 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 No evidence of acute infarct or midline shift. Underlying atrophy and white matter chronic ischemic change. - HOSPITAL COURSE Hospital Course: 78 yo F with PMH of HTN, HLD, AFib on Eliquis, h/o CVA in 2019 with residual decreased sensation L side, recent traumatic SDH, DM type 2, Depression/Anxiety and COPD. Pt fell and hit head on 02/19/24, was taken to [facility] and found to have SDH. Prior to this, she was independent. She had a CVA in 2019, which caused decreased sensation L side, but she was able to stand and walk on her own. She was hospitalized from 02/18-02/24/[address] [facility], she had a MARKEL and Neurosurgery and Cardiology consults were done. Pt's Eliquis was initially held, but p was told to restart her Eliquis on 02/26/24. On D/C, P.T. was offered to pt, but she declined. Since D/C on 02/24/24, her weakness has increased intermittently. She presented to the ED with c/o 1 day h/o increased weakness R side. Her speech difficulties and R sided facial droop resolved prior to coming into the ED. She was ordered a head CT, angiography CT, and Chest x-ray. Upon admission to the hospital her home medications were continued, labs were ordered, and neuro checks were conducted. Her glucose came back elevated at 116 and given Insulin Human Lispro 1-5 units SUBQ QID. Yesterday she reported feels worse compared to the day prior. Her neck is where the majority of the pain resides. Her pain was a 4 or 5/10. She complained of a HOOD and loud nose and bright light made it worse. She reported some dizziness. She was ordered and MRI which showed no abnormalities. Her symptoms have resolved and she is speaking full sentences and oriented x3. She is swallowing properly and walking she is in stable condition Today she rports she is doing a lot better wild some neck pain. She does not have any facial drooping b/l and denies any facial weakness. She is speaking in coherent sentences however, it seems as though Macedonian is not her primary language. She was able to eat. She denies any vision problem, SOB, CP, abdominal pain, n/v, or edema. She is being discharged in stable condition. Temperature is 36.3 . HR is 70. BP is 126/64. RR. 96 on room air. We spoke to her son and since she is unable to use the bathroom without a two person assist it is recommended that she discharged and transferred to a SNF or Home Health. She will need her home medication to be continuously monitored. - ALLERGIES Allergies/Adverse Reactions: Allergies Allergy/AdvReac Type Severity Reaction Status Date / Time Penicillins Allergy Rash Verified 03/01/24 17:44 - MEDICATIONS Home Medications: Ambulatory Orders Medication Instructions Recorded Confirmed Furosemide [Lasix] 20 mg PO DAILY 05/02/20 03/02/24 Mirtazapine 15 mg PO HS 01/13/23 03/02/24 Spironolactone [Aldactone] 12.5 mg PO QPM 01/13/23 03/02/24 Albuterol Sulfate [Proair 90 mcg INH Q4HR PRN 02/19/24 03/02/24 Digihaler] Apixaban [Eliquis] 5 mg PO BID 02/19/24 03/02/24 Atorvastatin Calcium [Lipitor] 80 mg PO HS 02/19/24 03/02/24 Fenofibrate 160 mg PO DAILY 02/19/24 03/02/24 Fluticasone/Umeclidin/Vilanter 1 puffs INH DAILY 02/19/24 03/02/24 [Trelegy Ellipta 100-62.5-25] Magnesium Oxide [Magnesium] 400 mg PO BID 02/19/24 03/02/24 Metoprolol Tartrate [Lopressor] 12.5 mg PO BID 02/19/24 03/02/24 amLODIPine [Norvasc] 5 mg PO QPM 02/19/24 03/02/24 Aspirin EC [Ecotrin] 81 mg PO QPM 03/02/24 03/02/24 Ondansetron HCl 4 mg PO Q6H PRN 03/02/24 03/02/24 oxyCODONE [Roxicodone] 2.5 mg PO BID PRN 03/02/24 03/02/24 traZODone [Desyrel] 25 mg PO QPM PRN 03/02/24 03/02/24 - PHYSICAL EXAM AT DISCHARGE General Appearance: positive: No acute distress Eyes Bilateral: positive: Normal inspection, EOMI ENT: positive: ENT inspection nml Neck: positive: Nml inspection, No JVD, Trachea midline Respiratory: positive: Chest non-tender, No respiratory distress Cardiovascular: positive: Regular rate & rhythm. negative: JVD present Peripheral Pulses: positive: 2+ Abdomen: positive: Non-tender, No distention. negative: Tenderness, Guarding, Rebound Skin: positive: Color nml, Other (L dickey wound) Extremities: positive: Full ROM, No pedal edema. negative: Calf tenderness Neurologic/Psychiatric: positive: Oriented x3, Mood/affect nml - LABS Result Diagrams: 03/03/24 05:40 03/03/24 05:40 - DIAGNOSTIC IMAGING Diagnostic Imaging Results: Final report reviewed - SEPSIS Current Stage of Sepsis: Ruled out - FOLLOW UP Follow Up: Follow up with PCP for continue management for chronic issues. - If your symptoms worsen please come back to the ED for further reevaluation <Kallie Yuen - Last Filed: 03/03/24 14:11> Discharge Summary - DIAGNOSES Discharge Diagnoses with Status of Each Condition: She had declined significantly after her admission [place] [facility], and was not doing well at home. in light of these deficits in functional status, after evaluation by PT, she would definitely benefit from a course of correction rehab. Records of her admission to [place] were received just prior to discharge from [facility]. She was referred to cardiology at the [facility] and was discharged home from the hospital on a 14-day patch monitor. There was an incidental finding of a thyroid nodule which will require PCP follow-up. This was a left thyroid nodule measuring 1.1 x 1.5 x 1.7 cm recommendations are for nonemergent ultrasound. TTE dated 02/21/2024 #1 significant gating and respiratory artifact throughout the procedure #2 bilateral pleural effusions #3 difficult to visualize valve function but there appears to be a moderate mitral regurgitation. #4 normal LV size and function EF 64.9% no wall motion abnormalities #5 normal RV size with mild RV dysfunction #6 stress myocardial perfusion imaging demonstrates small focal infarction in the basilar inferior wall only no areas of reversible ischemia. Low risk study With regards to her subdural hematoma the recommendation was for follow-up CT of the head in 4 to 6 weeks from date of discharge, 02/24/2024. Advance care planning discussion was held during this admission. Her son was involved in the conversation. We initially used an iPad industrial relations commissioner with Latvian language however the patient quickly ignored this and engaged in conversation with me, therefore the industrial relations commissioner was discontinued. POLST was filled out with the patient: Do not attempt resuscitation otherwise patient will receive full treatment. - LABS Result Diagrams: 03/03/24 05:40 03/03/24 05:40 - FOLLOW UP Follow Up: Britney Carrington, PCP. Cardiology, [facility] - TIME SPENT Time Spent in Discharge (Minutes): 45
--- NOTE | 2024-03-03 13:19 | Discharge Plan ---
Discharge Plan Problem Reviewed?: Yes Disposition: SNF DC/Xfer Condition: Stable Prescriptions: Acetaminophen [Tylenol] 650 mg PO Q4HR PRN #90 tab PRN Reason: Pain 1 to 4, or Fever oxyCODONE [Roxicodone] 2.5 mg PO Q6HR PRN #20 tab PRN Reason: Moderate Pain (Level 4-6) Diet: Diabetic Activity Restrictions: Activity as Tolerated Shower Restrictions: No Driving Restrictions: Yes (no driving) Assistance Devices: Wheelchair, Walker Weight Bearing: Full Weight Instruction Topics: Transient Ischemic Attack Dc Health Concerns: Is you were admitted with transient right-sided weakness and facial droop. This resolved quickly. You have recently had a subdural hematoma for which she was treated in mid February at [facility]. You have a history of a stroke. Imaging here revealed no cause of your transient right sided weakness. You had a CT as well as a CTA of your head neck you had an MRI of your brain. You do have resolving subdural hematomas bilaterally in your brain. This is probably why you have chronic headaches and light sensitivity. You did have an echocardiogram done at [facility] when you were admitted from 02/18 - 02/24/2024. Your white blood cell count was up and has remained up since you have been here. It is around 12,000. There is no obvious cause of infection. You have atrial fibrillation and you should continue your Eliquis for stroke prevention. She should also continue your hypertension medications, as well as your medications for hyperlipidemia. We have not changed or added any new medications for you. You are going to retirement rehab in order to get stronger and be safer at home to reduce the risk of injury when you do return home to your son and [id number]. Care Goals: become stronger and more safe for return to home. No Smoking: If you smoke, Please STOP! Call for help. Follow-up with: Britney Carrington PA [Primary Care Provider] -
[2024-03-03 15:51] VITALS: BP 102/73; O2SAT 94
== END 2024-03-03 16:12 | DRG 69 ==
LOC: EDUNIT# → ED 17:38 → MS2 19:40 → OBSVTOIN 03-02 16:02
PROVIDERS: ADMIT Internal Medicine; ATTEND Physician Assistant Medical
DX: G45.9 Transient cerebral ischemic attack, unspecified (principal); R29.810 Facial weakness; D72.829 Elevated white blood cell count, unspecified; R53.1 Weakness; I69.398 Other sequelae of cerebral infarction; R20.0 Anesthesia of skin; I48.91 Unspecified atrial fibrillation; I10 Essential (primary) hypertension; Z87.891 Personal history of nicotine dependence; E11.9 Type 2 diabetes mellitus without complications; J44.9 Chronic obstructive pulmonary disease, unspecified; F32.A Depression, unspecified; R94.31 Abnormal electrocardiogram [ECG] [EKG]; F41.9 Anxiety disorder, unspecified; S06.5XAD Traumatic subdural hemorrhage with loss of consciousness status unknown, subsequent encounter; W19.XXXD Unspecified fall, subsequent encounter; M54.2 Cervicalgia; E78.00 Pure hypercholesterolemia, unspecified; Z66 Do not resuscitate; Z79.01 Long term (current) use of anticoagulants; Z79.82 Long term (current) use of aspirin; Z79.899 Other long term (current) drug therapy; Z88.0 Allergy status to penicillin
CPT/HCPCS: 36415; 51701; 70450; 70496; 70498; 70551; 71045; 80048; 80053; 80061; 81001; 83036; 83690; 84443; 85025; 93005; 94640; 97162; 97166; 99285; A9270; G0378; J7626; Q9967; 81003; 83721; 87086